=== PATIENT | male | born 1930 | race Caucasian/White ===

== ENCOUNTER 2016-12-14 07:29 | Inpatient (IN) | payer MEDICARE ==
[~2016-12-14] VITALS: Ht 165.1 cm; Wt 73.0 kg
[~2016-12-14 07:29] MED LIST: /AMIO20TA PO; /FENO14TA PO; ACET50TA PO; ALBU0.084 NEB; ALBU1.25 NEB; ALDA25TA2 PO; ASPI81TA85 PO; CAPT31TA OR; CAPT31TA PO; CARV3.12 PO; CORE25TA PO; DIGO25TA PO; FURO40TA2 PO; GABA300C2 PO; JANU25TA PO; MULTTAB4 PO; NITR4TASL SL; POTA10TA PO; PRO AIR HFA INH; SIMV40TA2 PO; SPIRIVA INH; VITA500047 PO; WARF1TAB35 PO; ZETI10TA21 PO
[2016-12-14 08:03] LABS: BASO # 0.1 K/mm3 (0.0-0.2); BASO % 0.3 % (0.0-1.0); EOS # 0.1 K/mm3 (0.0-0.50); EOS % 0.4 % (0.0-3.0); LARGE UNSTAINED CELL # 0.8 K/mm3 (0.0-0.4); LARGE UNSTAINED CELL % 3.5 % (0.0-4.0); LYMPH # 3.4 K/mm3 (1.5-4.5); LYMPH % 11.9 % (24.0-44.0); MEAN CORPUSCULAR HEMOGLOBIN 29.3 pg (27.0-33.0); MEAN CORPUSCULAR HGB CONC 31.1 g/dl (32.0-36.5); MEAN CORPUSCULAR VOLUME 94.2 fl (80.0-96.0); MONO # 1.8 K/mm3 (0.0-0.8); MONO % 8.2 % (0.0-5.0); NEUTROPHILS # 16.7 K/mm3 (1.8-7.7); NEUTROPHILS % 75.7 % (36.0-66.0); PLATELET COUNT, AUTOMATED 293 k/mm3 (150-450); RED CELL DISTRIBUTION WIDTH 15.2 % (11.5-14.5); WHITE BLOOD COUNT 22.1 K/mm3 (4.0-10.0)
--- NOTE | 2016-12-14 08:14 | REP ---
Clinical: Shortness of breath . Comparison: 06/19/2013 . Findings: The mediastinum and cardiac silhouette are stable. Sternotomy and pacemaker again noted. The lung espino are clear without acute consolidation, effusion, or pneumothorax. Skeletal structures are intact. Impression: No acute cardiopulmonary process. Signed by Paulo Desouza MD 12/14/2016 08:05 A
[2016-12-14] MEDS ORDERED: PANTOPRAZOLE 40MG INJ (PROTONIX) (C9113) As Ordered ONE ×5 (08:24→23:27)
[2016-12-14 08:53] LABS: ALBUMIN 3.2 GM/DL (3.2-5.2); ALBUMIN/GLOBULIN RATIO 1.33 (1.00-1.93); BILIRUBIN,DIRECT 0.1 MG/DL (0.0-0.2); BILIRUBIN,TOTAL 0.5 MG/DL (0.2-1.0); CALCIUM LEVEL 8.1 MG/DL (8.8-10.2); CREATININE FOR GFR 1.74 MG/DL (0.70-1.30); GLOMERULAR FILTRATION RATE 39.8 (>35); TOTAL PROTEIN 5.6 GM/DL (6.4-8.2)
[2016-12-14 09:12] LABS: DIGOXIN LEVEL 0.9 NG/ML (0.5-2.0)
[2016-12-14] MEDS ORDERED: WARF4TAB52 PO (09:24)
[2016-12-14] MEDS ORDERED: CAPT62TA PO (09:24)
[2016-12-14] MEDS ORDERED: [UNRECOGNIZED DRUG - CODE] PO (09:24)
[2016-12-14] MEDS ORDERED: CARV3.12 PO (09:24)
[2016-12-14] MEDS ORDERED: ASPI1TAB PO (09:24)
[2016-12-14] MEDS ORDERED: SIMV20TA2 PO (09:24)
[2016-12-14] MEDS ORDERED: FURO20TA2 PO (09:24)
[2016-12-14] MEDS ORDERED: SPIR25TA2 PO (09:24)
[2016-12-14] MEDS ORDERED: DRIS50002 PO (09:24)
[2016-12-14] MEDS ORDERED: NITR4TASL SL (09:24)
[2016-12-14] MEDS ORDERED: DIGO0.12 PO (09:24)
[2016-12-14] MEDS ORDERED: TRAD5TAB PO (09:24)
[2016-12-14] MEDS ORDERED: DEXTROSE 50% 50 ML SYRINGE IV PRN (10:00)
[2016-12-14] MEDS ORDERED: ONDANSETRON 4MG/2ML VIAL (J2405) IV PRN (10:00)
[2016-12-14] MEDS ORDERED: GLUCOSE 4 GM CHEW TABLET PO PRN (10:00)
[2016-12-14] MEDS ORDERED: ACETAMINOPHEN TAB 650MG DOSE (2X325MG) PO PRN (10:00)
[2016-12-14] MEDS ORDERED: ONDANSETRON 4 MG TAB (S0181) PO PRN (10:00)
[2016-12-14] MEDS ORDERED: GLUCAGON FOR INJ 1 MG VIAL (J1610) SC PRN (10:00)
[2016-12-14 10:25] LABS: INR 6.25
[2016-12-14] MEDS ORDERED: PHYTONADIONE 10MG/ML INJECTION (J3430) As Ordered ONE (10:46)
[2016-12-14 10:55] VITALS: BP 139/63
[2016-12-14] MEDS: HumaLOG INSULIN (NovoLOG) PER UNIT SC SCH ×2 (12:00→18:00)
[2016-12-14] MEDS: PANTOPRAZOLE SODIUM 40 MG in D5W MINI-BAG PLUS 50 ML IV SCH ×3 (13:15→23:31)
--- NOTE | 2016-12-14 13:53 | HPEPDOC ---
Medical History and Physical Date of Admission Dec 14, 2016 at 09:55 History and Physical HISTORY AND PHYSICAL Date of admission: 12/14/2016 PCP: Dr. Srivastava in [place] Chief complaint: Very weak, couldn't breathe when he tried to get up, black stool for a week HPI: 86-year-old male with history of WI, CAD status post CABG, ischemic cardiomyopathy with chronic systolic CHF status post biventricular defibrillator placement, history of A. fib, mechanical aortic valve replacement , COPD, hypertension, hyperlipidemia, diabetes mellitus type 2, history of prior ventricular fibrillation who presented to the hospital because he was extremely weak and said that he couldn't even stand up to get to the bathroom. He states that approximately one week ago, he went to the bathroom, when he heard something that sounded "like a shotgun" when he expelled stool. He noted at that time, that the stool was very black. He has proceeded to have black bowel movements since then. He has been getting progressively more weak, initially limited to his legs, but now he states his whole body is weak. He also reports shortness of breath and dizziness whenever he tries to get up. He was prompted to come to the ER today, when he noticed that he couldn't even stand up to get to the bathroom. He does report that he fell twice, but he denies any head injury or loss of consciousness. He states that he just kind of slumped to the ground. He denies any prior episodes that are similar to this. Upon questioning as to the history of prior GI bleed, he denies this, although there is some documentation that suggests he does have a history of a prior GI bleed. He reports that his daughter manages all of his medications, but unfortunately his daughter was not at the bedside during my interview to further discuss his Coumadin usage. The patient states his INRs are followed by Dr. Srivastava, but he is not sure when it was last checked. Past medical history: history of WI, CAD status post CABG, ischemic cardiomyopathy with chronic systolic CHF status post biventricular defibrillator placement, history of A. fib, mechanical aortic valve replacement , COPD, hypertension, hyperlipidemia, diabetes mellitus type 2, history of prior ventricular fibrillation Past surgical history: CABG, mechanical aortic valve replacement, biventricular defibrillator placement Family history: The patient states his brother was killed in an MVA. He is otherwise unsure about his family history. Social history: Patient states that he and his daughter currently live together. He quit smoking approximately 40 years ago, and at the same time, he quit drinking any alcohol. Allergies: No known drug allergies Review of systems: General: Positive for hot flashes. Negative for chills. Eyes: Negative for vision changes ENT: Negative for sore throat and nose bleed Cardiovascular: Negative for chest pain and palpitations Respiratory: Positive for shortness of breath. Negative for cough GI: Negative for nausea and vomiting. Positive for black stool. Musculoskeletal: Positive for chronic neck pain. Negative for back pain Skin: Negative for rash Neuro: Negative for headache, numbness, tingling. Positive for dizziness. Psych: Positive for depression. The patient denies any current suicidal ideations, but reports that in the last couple months he has experienced times when he wanted to kill himself, although he had no distinct plan. Endocrine: Negative for polyuria : Negative for dysuria Heme: Positive for black stool 1 week Home meds: See below Physical exam: Vital signs: Blood pressure 139/58, HR 71, temperature 96.6, O2 sat 97% on room air, RR 18 Gen.: awake, alert, no acute distress Eyes: Extraocular movements intact, normal sclera ENT: Moist mucous membranes Cardiovascular: RRR, no murmurs rubs or gallops Lungs: clear to auscultation bilaterally, no rales, rhonchi, or wheeze Abdomen: Soft, NT/ND, normal BS Musculoskeletal: normal range of motion Extremities: No peripheral edema Neuro: alert and oriented 3, normal speech, no focal deficits Psych: Normal mood with congruent affect Labs and radiology: See below Hemoglobin 6.0 WBC 22 BUN 45, creatinine 1.74 INR 6.25 Troponin negative, EKG was paced Assessment and plan: 86-year-old male with history of WI, CAD status post CABG, ischemic cardiomyopathy with chronic systolic CHF status post biventricular defibrillator placement, history of A. fib, mechanical aortic valve replacement , COPD, hypertension, hyperlipidemia, diabetes mellitus type 2, history of prior ventricular fibrillation who presented to the hospital because he was extremely weak and had been having black bowel movements for approximately one week. He is admitted with acute blood loss anemia, as well as upper GI bleed. 1. Upper GI bleed: The patient will remain nothing by mouth and on a PPI drip. He will receive IV fluids. I spoke with Dr. Perry of gastroenterology, who has kindly agreed to see him and follow along in consultation. 2. Acute blood loss anemia, supra therapeutic INR: Hemoglobin upon admission is 6.0. Given that he is on Coumadin and his INR 6.25, we will be holding his Coumadin. Given that he is demonstrating active bleeding, he has received 5 mg of IV vitamin K and we will recheck an INR this evening. He also will receive 2 units of PRBCs and 1 pheresis of fresh frozen plasma. We will then recheck his Hgb and continue to trend H/Hs. At this time, nursing reports he has not had any bloody bowel movements since arriving here. 3. Leukocytosis: WBC upon admission is 22. I suspect that this is reactive secondary to his GI bleed, as he has been afebrile and a chest x-ray is unremarkable. We will check a UA, and continue to trend his CBC. We will also check blood cultures. 4. Chronic kidney disease: Upon review of the EMR, it appears that the patient' s baseline creatinine is in the upper ones. It appears that he is currently at his baseline. His BUN is elevated above his baseline, however, I suspect that this is secondary to his GI bleed. We'll continue to closely monitor his kidney function. 5. History of WI, CAD status post CABG: The patient currently does not have any chest pain. An initial troponin is negative and his EKG shows ventricular pacing. We will monitor him on telemetry and continue to trend his troponins. Given that he is currently bleeding, we will hold his home aspirin. We also will hold his home beta dmitry and monitor his blood pressure. We will hold his home statin with plans to resume at discharge. 6. Ischemic cardiomyopathy with chronic systolic CHF status post biventricular defibrillator placement: Given that the patient is currently having a GI bleed, we will hold his home Lasix and spironolactone and monitor his fluid status closely. We also will hold his home KARL inhibitor, and ensure that his blood pressure remains stable in light of his current GI bleed. 7. History of mechanical aortic valve replacement: The patient takes Coumadin at home. We will be holding this in light of his GI bleed. I have consulted his primary equine dentist, Dr. García, for further recommendations of anticoagulation in the setting of a GI bleed and mechanical aortic valve. 8. Diabetes mellitus type 2: We will hold the patient's home Tradjenta. His A1c is 5.8. We will use sliding scale insulin while in house. 9. History of A. fib/ventricular fibrillation: Continue home digoxin. Digoxin level is within normal limits. 10. Depression: The patient endorses being depressed. He denies any current suicidal ideations, but he does tell me that over the last several months, he has had some thoughts of killing himself. When asked if he has a plan, he states that they no longer have a gun, so he doesn't really know how he would do it. At this time, since he denies any current suicidal ideations, I do not believe that he needs to be on suicidal precautions, but I do believe that his mental status should be reevaluated prior to discharge, and if this changes, he may warrant a psych evaluation. DVT prophylaxis: SCDs Dispo: admit as an inpatient to the service of Dr. Zurita. The patient will currently be in the PCU since his vitals are stable and he is not having any gross bleeding. However, we will have a low threshold of moving him to the ICU if he should show any signs of instability. CODE STATUS: Full code. The patient is very clear in telling me that he would not want to be kept alive on machines for an extended period of time, but he does state, that if in the moment, he would be unable to breathe on his own, he would want to be intubated. He also states, that if in the moment, his heart were to stop beating, he would desire cardiac resuscitation. Vital Signs see above Laboratory Data Labs 24H Laboratory Tests 2 12/14/16 07:46: Activated Partial Thromboplast Time 49.6H, Aspartate Amino Transf (AST/SGOT) 15 , Alanine Aminotransferase (ALT/SGPT) 22, Alkaline Phosphatase 48, Total Bilirubin 0.5, Direct Bilirubin 0.1, Albumin 3.2, Albumin/Globulin Ratio 1.33, Anion Gap 13, White Blood Count 22.1H, Red Blood Count 2.06L, Hemoglobin 6.0*L, Hematocrit 19.4L, Mean Corpuscular Volume 94.2, Mean Corpuscular Hemoglobin 29.3 , Mean Corpuscular Hemoglobin Concent 31.1L, Red Cell Distribution Width 15.2H, Platelet Count 293, Neutrophils (%) (Auto) 75.7H, Lymphocytes (%) (Auto) 11.9L, Monocytes (%) (Auto) 8.2H, Eosinophils (%) (Auto) 0.4, Basophils (%) (Auto) 0.3 , Neutrophils # (Auto) 16.7H, Lymphocytes # (Auto) 3.4, Monocytes # (Auto) 1.8H , Eosinophils # (Auto) 0.1, Basophils # (Auto) 0.1, Calcium Level 8.1L, Creatine Kinase MB 1.8, Creatine Kinase MB Relative Index 5.45H, Digoxin Level 0.9, Estimated Mean Plasma Glucose 120H, Glomerular Filtration Rate 39.8, Hemoglobin A1c 5.8, Large Unclassified Cells # 0.8H, Large Unclassified Cells % 3.5, Prothromb Time International Ratio 6.25*H, Prothrombin Time 55.1H, Total Creatine Kinase 33L, Total Protein 5.6L, Troponin I 0.03 12/14/16 07:47: B-Type Natriuretic Peptide 77.3 CBC/BMP Laboratory Tests 12/14/16 07:46 Red Blood Count 2.06 L, Mean Corpuscular Volume 94.2, Mean Corpuscular Hemoglobin 29.3, Mean Corpuscular Hemoglobin Concent 31.1 L, Red Cell Distribution Width 15.2 H, Neutrophils (%) (Auto) 75.7 H, Lymphocytes (%) (Auto ) 11.9 L, Monocytes (%) (Auto) 8.2 H, Eosinophils (%) (Auto) 0.4, Basophils (%) (Auto) 0.3, Neutrophils # (Auto) 16.7 H, Lymphocytes # (Auto) 3.4, Monocytes # ( Auto) 1.8 H, Eosinophils # (Auto) 0.1, Basophils # (Auto) 0.1 Home Medications Scheduled (Gas-X Extra Strength) 125 Mg Cap 125 MG PO DAILY Aspirin (Aspirin 81) 81 Mg Tab 81 MG PO DAILY Captopril (Captopril) 12.5 Mg Tab 6.25 MG PO BID Carvedilol (Carvedilol) 3.125 Mg Tab 3.125 MG PO BID Digoxin (Digoxin) 0.125 Mg Tab 0.125 MG PO DAILY Furosemide (Furosemide) 20 Mg Tab 20 MG PO BID Linagliptin Base (Tradjenta) 5 Mg Tab 5 MG PO QHS Simvastatin (Simvastatin) 20 Mg Tab 20 MG PO QHS Spironolactone (Spironolactone) 25 Mg Tab 12.5 MG PO DAILY Vitamin D (Drisdol) 50,000 Unit Cap 50,000 UNIT PO Q2WK EVERY OTHER SUNDAY Warfarin Sod (Warfarin Sodium) 1 Mg Tab 1.5 MG PO ASDIRECTED ON 12/11 PT TOOK 2MG , 12/12 AND 12/13 PT TOOK 1.5MG- WAS SUPPOSED TO GET BLOOD WORK TODAY - DR HAS BEEN CHANGING DOSE FREQUENTLY Scheduled PRN Nitroglycerin (Nitrostat) 0.4 Mg Subl 0.4 MG SL Q5MP PRN PRN CHEST PAIN Allergies Coded Allergies: No Known Allergies (Unverified , 06/16/13) RAVINDRA LAYNE Dec 14, 2016 13:53
[2016-12-14] MEDS ORDERED: AMPICILLIN SOD 2 GM in D5W MINI-BAG PLUS 100 ML IV SCH (15:00)
[2016-12-14] MEDS: NS 1,000 ML IV SCH (17:59)
[2016-12-14 18:15] VITALS: BP 120/58
[2016-12-14] MEDS: DIGOXIN 0.125 MG TAB PO SCH (18:29)
[2016-12-14 18:46] LABS: INR 1.51
[2016-12-14 19:34] VITALS: BP 109/59
--- NOTE | 2016-12-14 20:44 | CR ---
DATE OF CONSULTATION: 12/14/2016 Status of patient: Inpatient. Requesting physician is the hospitalist service. Reason for consultation is anemia, melena. HISTORY OF PRESENT ILLNESS: Mr. Wolff is a very pleasant elderly gentleman with an extensive cardiac history including ischemic cardiomyopathy, history of ventricular tachycardia with defibrillator placement. He also has a history of atrial fibrillation. He has a history of aortic valve replacement for which he is taking Coumadin. The patient was in his usual state of health until approximately 1 week ago when he suddenly developed black, tarry, loose, explosive stools up to twice a day. He felt weak and tired, feeling his legs giving out. He did have an episode of fall; however, did not lose consciousness. The patient presents to [facility] Emergency Room (ER) with a hemoglobin of 6.0 and PT/INR of 6. The patient is being transfused and INR is being corrected for further evaluation. PAST MEDICAL HISTORY: History of coronary artery disease, status post coronary artery bypass graft (CABG), history of systolic heart failure, history of ventricular tachycardia with defibrillator placement, history of atrial fibrillation. He has a history of mechanical aortic valve placement, chronic obstructive pulmonary disease (COPD), hypertension. SURGICAL HISTORY: Coronary artery bypass grafting, mechanical aortic valve placement, implantable cardioverter defibrillator (ICD) placement, reportedly has a history of colonoscopy and upper endoscopy in 2012 or 2013 for a similar episode. FAMILY HISTORY: Noncontributory. SOCIAL HISTORY: Negative for tobacco. Negative for alcohol. ALLERGIES: No known drug allergies. MEDICATIONS AT HOME: Include digoxin, furosemide, spironolactone, vitamin D, Coumadin, captopril. PHYSICAL EXAMINATION: Blood pressure 128/76, heart rate is 70, temperature 96.8, oxygen saturation 97% on room air. General: He is awake, alert and oriented, in no acute distress, very pleasant and comfortable in bed. Head, eyes, ears, nose and throat: Without abnormality. No oral thrush. Neck is negative for lymphadenopathy or thyromegaly. Chest is coarse, distant breath sounds but no rhonchi or wheezing. Heart is regular rate and rhythm. Aortic click is appreciated. Abdomen is soft, flat, nontender. Good bowel sounds. Extremities: Negative for edema. LABORATORY: Hemoglobin of 6, WBCs 22, BUN 45, creatinine 1.74. PT/INR 6.25/1.5. 1. Posthemorrhagic anemia with near syncopal episode. 2. Melena. 3. Supratherapeutic INR, has now been corrected. 4. Mechanical aortic valve in place. 5. Systolic heart failure. 6. History of cardiac arrhythmia, status post ICD RECOMMENDATIONS: 1. INR has been corrected sufficiently and anemia is being corrected as well. Therefore, we will tentatively plan on upper endoscopy for further evaluation of his melena/anemia tomorrow. 2. Preprocedure ampicillin and gentamicin will be ordered. 3. Further recommendations depending on above.
[2016-12-14] MEDS ORDERED: PANTOPRAZOLE 40MG INJ (PROTONIX) (C9113) IV SCH (21:00)
[2016-12-14 23:32] VITALS: BP 105/55
[2016-12-15] VITALS (8 sets, daily range): BP systolic 105–163; BP diastolic 54–72
[2016-12-15] MEDS ORDERED: HumaLOG INSULIN (NovoLOG) PER UNIT As Ordered ONE ×3 (00:03→12:33)
[2016-12-15] MEDS: HumaLOG INSULIN (NovoLOG) PER UNIT SC SCH ×4 (00:06→19:06)
[2016-12-15] MEDS ORDERED: PANTOPRAZOLE 40MG INJ (PROTONIX) (C9113) As Ordered ONE ×3 (05:25→13:31)
[2016-12-15] MEDS: PANTOPRAZOLE SODIUM 40 MG in D5W MINI-BAG PLUS 50 ML IV SCH ×4 (05:27→18:59)
[2016-12-15 06:29] LABS: INR 1.37
[2016-12-15 06:30] LABS: BASO % 0.4 % (0.0-1.0); EOS # 0.1 K/mm3 (0.0-0.50); EOS % 0.9 % (0.0-3.0); LARGE UNSTAINED CELL # 0.6 K/mm3 (0.0-0.4); LARGE UNSTAINED CELL % 4.9 % (0.0-4.0); LYMPH # 1.5 K/mm3 (1.5-4.5); LYMPH % 13.1 % (24.0-44.0); MEAN CORPUSCULAR HEMOGLOBIN 28.1 pg (27.0-33.0); MEAN CORPUSCULAR HGB CONC 32.3 g/dl (32.0-36.5); MONO # 0.4 K/mm3 (0.0-0.8); MONO % 3.8 % (0.0-5.0); NEUTROPHILS # 8.6 K/mm3 (1.8-7.7); NEUTROPHILS % 76.9 % (36.0-66.0); RED CELL DISTRIBUTION WIDTH 16.9 % (11.5-14.5); WHITE BLOOD COUNT 11.1 K/mm3 (4.0-10.0)
[2016-12-15 06:35] LABS: MEAN CORPUSCULAR VOLUME 87.1 fl (80.0-96.0); PLATELET COUNT, AUTOMATED 177 k/mm3 (150-450)
[2016-12-15 06:42] LABS: CALCIUM LEVEL 8.2 MG/DL (8.8-10.2); CREATININE FOR GFR 1.47 MG/DL (0.70-1.30); GLOMERULAR FILTRATION RATE 48.4 (>35); MAGNESIUM LEVEL 2.5 MG/DL (1.8-2.4); POTASSIUM SERUM 3.8 MEQ/L (3.5-5.1)
[2016-12-15] MEDS: NS 1,000 ML IV SCH (06:50)
[2016-12-15] MEDS ORDERED: D5W/0.45% SODIUM CHLORIDE 1,000 ML IV SCH (07:45)
[2016-12-15] MEDS: DIGOXIN 0.125 MG TAB PO SCH (08:28)
[2016-12-15] MEDS ORDERED: PHYTONADIONE 10MG/ML INJECTION (J3430) IV ONE (10:45)
[2016-12-15] MEDS ORDERED: AMPICILLIN SOD 2 GM in D5W MINI-BAG PLUS 100 ML IV ONE (15:00)
[2016-12-15] MEDS ORDERED: GENTAMICIN 80 MG in APPROPRIATE DILUENT 1 EA IV SCH (15:00)
[2016-12-15] MEDS ORDERED: GENTAMICIN 80 MG in APPROPRIATE DILUENT 1 EA IV ONE (15:00)
--- NOTE | 2016-12-15 15:30 | EDDOCDS ---
Nurse[facility] Notes [facility] Name: Bernard Wolff Jr Age: 86 yrs Sex: Male : 1930 Arrival Date: 12/14/2016 Time: 07:29 Bed Admit Hold Private MD: Diagnosis: Gastrointestinal hemorrhage, unspecified-Upper;Anemia, unspecified-symptomatic;Dehydration;Acute kidney failure Presentation: 12/14 07:36 Presenting complaint: EMS states: sudden onset difficulty breathing upon waking this jjr morning approx one hour ago, reports almost falling approx 3 times this morning with vertigo, black tarry stools 2 days ago FSBS 200's. Adult Sepsis Screening: The patient does not have new or worsening altered mentation. Patient's respiratory rate is less than 22. Systolic blood pressure is greater than 100. Patient has a qSOFA score of 0- Negative Sepsis Screen. Suicide/Homicide risk assessment- the patient denies having any suicidal and/or homicidal ideations and does not present with any other emotional, behavioral or mental health complaints. Status: Patient is not a lineman service or work dispatcher or dependent. Transition of care: patient was not received from another setting of care. 07:36 Acuity: DEJA Level 3 jjr 07:36 Method Of Arrival: Ambulance jjr Triage Assessment: 08:11 General: Appears in no apparent distress, well nourished, well groomed, Behavior is jjr appropriate for age. General: poor activity tolerance, tachypnea noted with rolling to side and sitting up. Pain: Denies pain. Neurological: Level of Consciousness is awake, alert, Moves all extremities. Speech is normal, Facial symmetry appears normal, Reports dizziness, weakness. Cardiovascular: Rhythm is ventricular pacer. Respiratory: Onset: The symptoms/episode began/occurred this morning, Airway is patent Respiratory effort is even, unlabored, Respiratory pattern is regular, Breath sounds are clear bilaterally. GI: Reports black tarry stool. Derm: Skin is dry, Skin is pale, Skin temperature is warm. Historical: - Allergies: no known allergies; - Home Meds: 1. captopril 12.5 mg Oral tab 0.5 tab 2 times per day 2. carvedilol 3.125 mg oral tab 1 tab 2 times per day 3. simvastatin 20 mg Oral tab 1 tab once daily 4. aspirin 81 mg Oral tab 1 tab once daily 5. Tradjenta 5 mg oral tab 1 tab once daily 6. furosemide 40 mg Oral tab 1 tab once daily 7. Nitrostat 0.4 mg SL subl 1 tab every 5 minutes 8. Coumadin 1 mg daily and 0.5 mg Wed and Fri Oral tab (Last dose: Unknown) 9. spironolactone 12.5 mg Oral tab once daily 10. digoxin 125 mcg Oral tab 1 tab once daily 11. Vitamin D2 50,000 unit oral cap 1 cap once wkly - PMHx: ischemic cardiomyopathy; GI bleed; Hypertension; Hypercholesterolemia; Diabetes - NIDDM: controlled; - PSHx: Cataract Surgery; Aortic Valve Replacement, Mechanical; CABG; pacer/defib; - The history from nurses notes was reviewed: and I agree with what is documented. - Social history: No barriers to communication noted, The patient speaks fluent Kiswahili. - : The pt / caregiver states he / she is on anticoagulants: coumadin. Home medication list is obtained from the patient, pill bottles. - Hospitalizations: : No recent hospitalization is reported. - Exposure Risk Screening:: None identified. - Immunization history:: All immunizations up-to-date. - Family history: Not pertinent. - Social history:: the patient is a non-smoker, the patient does not drink alcohol. Screenin:36 Fall Risk. jjr 08:13 Screening information is obtained from the patient. Fall risk: At risk due to age, The jjr following interventions are performed due to a positive Fall Risk Screen: added to special handling. Assistance ADL's: Requires assistance with meal preparation, this assistance is provided by family members, housework, assistance is provided by family members. Abuse/DV Screen: The patient / caregiver reports he/she is: not in a situation that causes fear, pain or injury. Nutritional screening: No deficits noted. home support is adequate. 08:14 Advance Directives: Currently, there is a health care proxy, Kat New. There is jjr no active DNR order. Assessment: 08:13 General: Appears in no apparent distress. Cardiovascular: Rhythm is ventricular pacer. jjr 09:15 General: Appears in no apparent distress, resting with eyes closed daughter at bedside. jjr 10:09 General: Appears in no apparent distress, Behavior is appropriate for age, first unit jjr PRBC infusing per order. Pain: Denies pain. Neurological: No deficits noted. Cardiovascular: Rhythm is ventricular pacer. Respiratory: Airway is patent Respiratory effort is even, unlabored, Respiratory pattern is regular. Derm: Skin is dry, Skin is pale, Skin temperature is warm. 11:11 General: Appears in no apparent distress, speaking with admission nurse. jjr Cardiovascular: Rhythm is ventricular pacer. Respiratory: Airway is patent Respiratory effort is even, unlabored, Respiratory pattern is regular. 12:12 General: Appears in no apparent distress, pt sat at bedside to use urinal, became jjr immediately tachypneic at approx 28 breaths/min and reported dizziness, returned to supine with relief of symptoms after a few minutes. Neurological: No deficits noted. Cardiovascular: Rhythm is ventricular pacer. Respiratory: Airway is patent Respiratory effort is even, unlabored, Respiratory pattern is regular. Derm: Skin is dry, Skin is pale, Skin temperature is warm. 13:10 General: Appears in no apparent distress, 2nd unit PRBC's continues to infuse, pt lying jjr quietly on stretcher, resting intermittently. Cardiovascular: Rhythm is ventricular pacer. 14:10 General: Appears in no apparent distress, Behavior is appropriate for age. jjr Neurological: No deficits noted. Cardiovascular: Rhythm is ventricular pacer. Respiratory: Airway is patent Respiratory effort is even, unlabored, Respiratory pattern is regular. Derm: Skin is dry, Skin is pale, Skin temperature is warm. 15:01 General: Appears in no apparent distress, Behavior is appropriate for age. Pain: Denies jjr pain. Neurological: No deficits noted. Cardiovascular: Rhythm is ventricular pacer. Respiratory: Airway is patent Respiratory effort is even, unlabored, Respiratory pattern is regular. 16:00 General: Appears in no apparent distress, watching television denies needs at this jjr time. Pain: Denies pain. Cardiovascular: Rhythm is ventricular pacer. Respiratory: Airway is patent Respiratory effort is even, unlabored, Respiratory pattern is regular. Vital Signs: 07:40 BP 123 / 60; Pulse 77; Resp 18; Temp 96.6(O); Pulse Ox 100% on R/A; Weight 68.04 kg dem1 (R); Pain 0/10; 07:53 Pulse 74 MON; Pulse Ox 98% ; jjr 07:53 BP 132 / 57 Supine (auto/); jjr 07:57 Pulse 70 MON; Pulse Ox 99% ; jjr 07:57 BP 111 / 52 Sitting (auto/); jjr 08:08 BP 110 / 56 (auto/); jjr 08:08 Pulse 76 MON; Pulse Ox 96% ; jjr 08:23 BP 129 / 63 (auto/); jjr 08:23 Pulse 70 MON; Pulse Ox 100% ; jjr 08:38 BP 101 / 50 (auto/); jjr 08:38 Pulse 74 MON; Pulse Ox 98% ; jjr 08:53 BP 146 / 64 (auto/); jjr 08:53 Pulse 70 MON; Pulse Ox 99% ; jjr 09:08 BP 122 / 60 (auto/); jjr 09:08 Pulse 68 MON; Pulse Ox 99% ; jjr 09:23 BP 122 / 59 (auto/); jjr 09:23 Pulse 68 MON; Resp 20; Pulse Ox 98% on R/A; jjr 09:38 BP 119 / 55 (auto/); jjr 09:38 Pulse 70 MON; Pulse Ox 98% ; jjr 09:41 BP 117 / 57 (auto/); jjr 09:41 Pulse 72 MON; Pulse Ox 99% ; jjr 09:53 BP 139 / 58 (auto/); jjr 09:53 Pulse 68 MON; Resp 18; Pulse Ox 98% on R/A; jjr 10:23 BP 142 / 65 (auto/); jjr 10:23 Pulse 74 MON; Pulse Ox 98% ; jjr 10:53 BP 139 / 63 (auto/); jjr 10:53 Pulse 68 MON; Resp 18; Pulse Ox 99% on R/A; jjr 11:23 BP 130 / 63 (auto/); jjr 11:23 Pulse 74 MON; Pulse Ox 98% ; jjr 11:53 BP 134 / 63 (auto/); jjr 11:53 Pulse 80 MON; Resp 18; Pulse Ox 99% on R/A; jjr 12:23 BP 136 / 64 (auto/); jjr 12:23 Pulse 68 MON; Pulse Ox 99% ; jjr 12:53 BP 138 / 63 (auto/); jjr 12:53 Pulse 68 MON; jjr 13:23 BP 129 / 60 (auto/); jjr 13:23 Pulse 70 MON; Pulse Ox 98% ; jjr 13:53 BP 132 / 63 (auto/); jjr 13:53 Pulse 72 MON; Resp 18; Pulse Ox 98% on R/A; jjr 14:53 BP 145 / 68 (auto/); jjr 14:53 Pulse 68 MON; Pulse Ox 98% ; jjr 15:15 BP 143 / 64 (auto/); jjr 15:15 Pulse 72 MON; jjr 15:53 BP 123 / 59 (auto/); jjr 15:53 Pulse 74 MON; Pulse Ox 98% ; jjr 16:35 BP 142 / 63 (auto/); jjr 16:35 Pulse 70 MON; Pulse Ox 98% ; jjr 16:53 Pulse 68 MON; Pulse Ox 98% ; jjr 16:53 BP 125 / 60 (auto/); Pulse 68; Resp 18; Temp 99.4(TE); Pulse Ox 98% on R/A; jjr Vitals: 07:40 Log In Time N/A - ambulance arrival. [facility] ED Course: 07:30 Patient visited by Sheeba Werner, Sustainable Design Coordinator. deg 07:30 Stephanie Gonzalez, RN is Primary Nurse. deg 07:30 Patient moved to Waiting deg 07:30 Patient moved to 14 deg 07:37 Lui Howard MD is Attending Physician. pc 07:37 Triage Initiated jjr 07:40 Patient visited by Marquita Leyva. [facility] 07:42 Pt greeted and oriented to ED. Patient advised of names of staff involved in care, bnb location of call regalado, wait times and NPO status. Patient has correct armband on for positive identification. Placed in gown. Bed in low position. Call light in reach. Side rails up X2. salvage supervisor on. Pulse ox on. NIBP on. 07:43 Patient visited by Irina Jaime PCA. bnb 07:46 Patient visited by Lui Howard MD. pc 07:56 EKG done. (by ED staff). Reviewed by Lui Howard MD. bnb 07:57 Patient visited by Irina Jaime PCA. bnb 08:11 Inserted saline lock: 20 gauge in right antecubital area. jjr 08:11 Maintain field IV. Dressing intact. Good blood return noted. Site clean & dry. Gauge & jjr site: 20 gauge left AC. 08:13 The patient / caregiver is instructed regarding the plan of care and ED course. jjr 08:15 Patient visited by Stephanie Gonzalez RN. jjr 08:17 DIGOXIN LEVEL Sent. pc 08:33 Chest, 1 View Returned. EDMS 09:01 [facility] Payment Agreement was scanned into [employer] and attached to record. jp5 09:05 Ya March is Hospitalizing Provider. pc 10:10 Patient visited by Stephanie Gonzalez RN. jjr 10:54 Patient name changed from Bernard\S\J\S\New Jr.\S\ to Bernard\S\J\S\New Jr. EDMS 11:11 Patient visited by Stephanie Gonzalez RN. jjr 12:13 Patient visited by Stephanie Gonzalez RN. jjr 13:10 Patient visited by Stephanie Gonzalez RN. jjr 13:55 Patient moved to Admit Hold dwg 14:10 Patient visited by Stephanie Gonzalez RN. jjr 14:49 PCR was scanned into [employer] and attached to record. gb 15:02 Patient visited by Stephanie Gonzalez RN. jjr 16:01 Patient visited by Stephanie Gonzalez RN. jjr 17:24 Patient moved to 21 jjr 17:43 Patient moved to Admit Hold deg 19:16 Primary Nurse role handed off by Stephanie Gonzalez RN jjr 12/15 14:14 ECG/EKG was scanned into [employer] and attached to record. gb 14:14 Consents was scanned into [employer] and attached to record. gb Administered Medications: 12/14 08:35 Drug: pantoprazole 80 mg [pantoprazole 40 mg intravenous solution] Route: IV; Rate: jjr bolus; Site: left antecubital; 08:48 Drug: pantoprazole 8 mg/hr [pantoprazole 40 mg intravenous solution] Route: IV; Rate: jjr 10 mL/hr; Infused Over: 72 hrs; Site: left antecubital; 10:50 Drug: Phytonadione 5 mg [phytonadione (vitamin K1) 10 mg/mL injection solution (0.5 jjr mL)] Route: IVP; Site: left antecubital; 11:47 Not Given (2 units PRBC's): NS 0.9% 250 ml IV at bolus once jjr Attachments: 14:14 Consents gb Intake: 12/14 11:23 IV: 300.00ml (PRBC); Total: 300.00ml. jjr 16:00 IV: 300.00ml (PRBC); Total: 600.00ml. jjr 16:00 IV: 300.00ml (FFP); Total: 900.00ml. jjr Output: 11:23 Urine: 125.00ml (Voided); Total: 125.00ml. jjr 16:00 Urine: 175.00ml (Voided); Total: 300.00ml. jjr Order Results: Lab Order: CBC with Diff; SPEC'M 12/14/16 07:46 Test: WHITE BLOOD COUNT; Value: 22.1; Range: 4.0-10.0; Abnormal: Above high normal; Units: K/mm3; Status: F Test: RED BLOOD COUNT; Value: 2.06; Range: 4.30-6.10; Abnormal: Below low normal; Units: M/mm3; Status: F Test: HEMOGLOBIN; Value: 6.0; Range: 14.0-18.0; Abnormal: Critical Low; Units: g/dl; Status: F Test: HEMATOCRIT; Value: 19.4; Range: 42.0-52.0; Abnormal: Below low normal; Units: %; Status: F Test: MEAN CORPUSCULAR VOLUME; Value: 94.2; Range: 80.0-96.0; Units: fl; Status: F Test: MEAN CORPUSCULAR HEMOGLOBIN; Value: 29.3; Range: 27.0-33.0; Units: pg; Status: F Test: MEAN CORPUSCULAR HGB CONC; Value: 31.1; Range: 32.0-36.5; Abnormal: Below low normal; Units: g/dl; Status: F Test: RED CELL DISTRIBUTION WIDTH; Value: 15.2; Range: 11.5-14.5; Abnormal: Above high normal; Units: %; Status: F Test: PLATELET COUNT, AUTOMATED; Value: 293; Range: 150-450; Units: k/mm3; Status: F Test: NEUTROPHILS %; Value: 75.7; Range: 36.0-66.0; Abnormal: Above high normal; Units: %; Status: F Test: LYMPH %; Value: 11.9; Range: 24.0-44.0; Abnormal: Below low normal; Units: %; Status: F Test: MONO %; Value: 8.2; Range: 0.0-5.0; Abnormal: Above high normal; Units: %; Status: F Test: EOS %; Value: 0.4; Range: 0.0-3.0; Units: %; Status: F Test: BASO %; Value: 0.3; Range: 0.0-1.0; Units: %; Status: F Test: LARGE UNSTAINED CELL %; Value: 3.5; Range: 0.0-4.0; Units: %; Status: F Test: NEUTROPHILS #; Value: 16.7; Range: 1.8-7.7; Abnormal: Above high normal; Units: K/mm3; Status: F Test: LYMPH #; Value: 3.4; Range: 1.5-4.5; Units: K/mm3; Status: F Test: MONO #; Value: 1.8; Range: 0.0-0.8; Abnormal: Above high normal; Units: K/mm3; Status: F Test: EOS #; Value: 0.1; Range: 0.0-0.50; Units: K/mm3; Status: F Test: BASO #; Value: 0.1; Range: 0.0-0.2; Units: K/mm3; Status: F Test: LARGE UNSTAINED CELL #; Value: 0.8; Range: 0.0-0.4; Abnormal: Above high normal; Units: K/mm3; Status: F Lab Order: MED Profile; [facility] 12/14/16 07:46 Test: GLUCOSE, FASTING; Value: 214; Range: 83-110; Abnormal: Above high normal; Units: MG/DL; Status: F Test: BLOOD UREA NITROGEN; Value: 45; Range: 7-18; Abnormal: Above high normal; Units: MG/DL; Status: F Test: CREATININE FOR GFR; Value: 1.74; Range: 0.70-1.30; Abnormal: Above high normal; Units: MG/DL; Status: F Test: GLOMERULAR FILTRATION RATE; Value: 39.8; Range: >35; Status: F Test: SODIUM LEVEL; Value: 144; Range: 136-145; Units: MEQ/L; Status: F Test: POTASSIUM SERUM; Value: 4.0; Range: 3.5-5.1; Units: MEQ/L; Status: F Test: CHLORIDE LEVEL; Value: 110; Range: 98-107; Abnormal: Above high normal; Units: MEQ/L; Status: F Test: CARBON DIOXIDE LEVEL; Value: 21; Range: 21-32; Units: MEQ/L; Status: F Test: ANION GAP; Value: 13; Range: 8-16; Units: MEQ/L; Status: F Test: CALCIUM LEVEL; Value: 8.1; Range: 8.8-10.2; Abnormal: Below low normal; Units: MG/DL; Status: F Test Note: ; Units are mL/min/1.73 m2 Chronic Kidney Disease Staging per NKF: Stage I & II GFR >=60 Normal to Mildly Decreased Stage III GFR 30-59 Moderately Decreased Stage IV GFR 15-29 Severely Decreased Stage V GFR <15 Very Little GFR Left ESRD GFR <15 on [employer] H[employer] VENDOR Lab Order: BNP; SPEC'M 12/14/16 07:47 Test: BRAIN NATRIURETIC PEPTIDE; Value: 77.3; Range: <100; Units: PG/ML; Status: F Lab Order: CIP; SPEC'M 12/14/16 07:46 Test: CPK CREATINE PHOSPHOKINASE; Value: 33; Range: 39-308; Abnormal: Below low normal; Units: U/L; Status: F Test: CK-MB VALUE MASS; Value: 1.8; Range: 0.0-3.6; Units: NG/ML; Status: F Test: MB/CK RELATIVE INDEX; Value: 5.45; Range: < OR =4; Abnormal: Above high normal; Status: F Test Note: ; DIAGNOSIS CRITERIA MMB ng/ml Relative Index (RI) NON-AMI < or = 5 N/A GILBERT ZONE > 5 < or = 4 AMI > 5 > 4 Lab Order: Troponin; [facility] 12/14/16 07:46 Test: TROPONIN I; Value: 0.03; Range: < 0.10; Units: NG/ML; Status: F Test Note: ; Troponin I Reference Interval for [employer] [facility] LOCI: 99th Percentile= 0.00-0.045 ng/ml Risk Stratification: <= 0.10 ng/ml Decreased Risk for Adverse Clinical Events. 0.10-1.50 ng/ml Increased Risk for Adverse Clinical Events. Evaluation of additional criterion and/or repeat testing in 2-6 hours is suggested to rule out myocardial damage. >= 1.50 ng/ml Indicative of Myocardial Injury. Lab Order: Pt & Aptt; [facility] 07:46 Test: PROTHROMBIN TIME; Value: 55.1; Range: 12.3-14.5; Abnormal: Above high normal; Units: SECONDS; Status: F Test: INR; Value: 6.25; Abnormal: Above upper panic limits; Status: F Test: PARTIAL THROMBOPLASTIN TIME; Value: 49.6; Range: 26.6-37.1; Abnormal: Above high normal; Units: SECONDS; Status: F Test Note: ; THERAPUTIC HUMAN INR VALUES INDICATIONS NORMAL RANGES PROPHYLAXIS/TREATMENT OF: VENOUS THROMBOSIS 2.0-3.0 PULMONARY EMBOLISM 2.0-3.0 PREVENTION OF SYSTEMIC EMBOLISM FROM: TISSUE HEART VALVES 2.0-3.0 ACUTE MYOCARDIAL INFARCTION 2.0-3.0 VALVULAR HEART DISEASE 2.0-3.0 ATRIAL FIBRILLATION 2.0-3.0 MECHANICAL VALVES(HIGH RISK) 2.5-3.5 RECURRENT MYOCARDIAL INFARCTION 2.5-3.5 Lab Order: Type & Screen; [facility] 07:47 Test: BLOOD TYPE; Value: A POS; Status: F Test: AB SCREEN (INDIRECT TRA)VIS; Value: NEGATIVE; Status: F Lab Order: Liver Profile; [facility] 12/14/16 07:46 Test: AST/SGOT; Value: 15; Range: 15-37; Units: U/L; Status: F Test: ALT/SGPT; Value: 22; Range: 12-78; Units: U/L; Status: F Test: ALKALINE PHOSPHATASE; Value: 48; Range: 45-117; Units: U/L; Status: F Test: BILIRUBIN,TOTAL; Value: 0.5; Range: 0.2-1.0; Units: MG/DL; Status: F Test: BILIRUBIN,DIRECT; Value: 0.1; Range: 0.0-0.2; Units: MG/DL; Status: F Test: TOTAL PROTEIN; Value: 5.6; Range: 6.4-8.2; Abnormal: Below low normal; Units: GM/DL; Status: F Test: ALBUMIN; Value: 3.2; Range: 3.2-5.2; Units: GM/DL; Status: F Test: ALBUMIN/GLOBULIN RATIO; Value: 1.33; Range: 1.00-1.93; Status: F Lab Order: A1C; [facility] 12/14/16 07:46 Test: HEMOGLOBIN A1c; Value: 5.8; Range: 4.5-6.2; Units: %; Status: F Test: ESTIMATED AVERAGE GLUCOSE; Value: 120; Range: 60-110; Abnormal: Above high normal; Units: MG/DL; Status: F Lab Order: DIGOXIN LEVEL; [facility] 12/14/16 07:46 Test: DIGOXIN LEVEL; Value: 0.9; Range: 0.5-2.0; Units: NG/ML; Status: F Lab Order: HEMOGLOBIN & HEMATOCRIT; [facility] 12/14/16 18:24 Test: HEMOGLOBIN; Value: 8.4; Range: 14.0-18.0; Units: g/dl; Status: F Test: HEMATOCRIT; Value: 25.1; Range: 42.0-52.0; Abnormal: Below low normal; Units: %; Status: F Lab Order: CARDIAC MARKER PANEL; [facility] 12/14/16 18:24 Test: CPK CREATINE PHOSPHOKINASE; Value: 53; Range: 39-308; Units: U/L; Status: F Test: CK-MB VALUE MASS; Value: 1.8; Range: 0.0-3.6; Units: NG/ML; Status: F Test: MB/CK RELATIVE INDEX; Value: 3.39; Range: < OR =4; Status: F Test: TROPONIN I; Value: 0.04; Range: < 0.10; Abnormal: Delta; Units: NG/ML; Status: F Test Note: ; DIAGNOSIS CRITERIA MMB ng/ml Relative Index (RI) NON-AMI < or = 5 N/A GILBERT ZONE > 5 < or = 4 AMI > 5 > 4 Lab Order: PROTHROMBIN TIME PROFILE\E\INR; [facility] 12/14/16 18:24 Test: PROTHROMBIN TIME; Value: 18.3; Range: 12.3-14.5; Abnormal: Above high normal; Units: SECONDS; Status: F Test: INR; Value: 1.51; Status: F Test Note: ; THERAPUTIC HUMAN INR VALUES INDICATIONS NORMAL RANGES PROPHYLAXIS/TREATMENT OF: VENOUS THROMBOSIS 2.0-3.0 PULMONARY EMBOLISM 2.0-3.0 PREVENTION OF SYSTEMIC EMBOLISM FROM: TISSUE HEART VALVES 2.0-3.0 ACUTE MYOCARDIAL INFARCTION 2.0-3.0 VALVULAR HEART DISEASE 2.0-3.0 ATRIAL FIBRILLATION 2.0-3.0 MECHANICAL VALVES(HIGH RISK) 2.5-3.5 RECURRENT MYOCARDIAL INFARCTION 2.5-3.5 Lab Order: Fingerstick Blood Sugar; [facility] 12/14/16 17:56 Test: BEDSIDE GLUCOSE; Value: 162; Range: 83-110; Abnormal: Above high normal; Units: MG/DL; Status: F Lab Order: HEMOGLOBIN & HEMATOCRIT; [facility] 12/15/16 01:49 Test: HEMOGLOBIN; Value: 7.4; Range: 14.0-18.0; Abnormal: Below low normal; Units: g/dl; Status: F Test: HEMATOCRIT; Value: 23.1; Range: 42.0-52.0; Abnormal: Below low normal; Units: %; Status: F Lab Order: HEMOGLOBIN & HEMATOCRIT; [facility] 12/15/16 12:59 Test: HEMOGLOBIN; Value: 9.3; Range: 14.0-18.0; Abnormal: Below low normal; Units: g/dl; Status: F Test: HEMATOCRIT; Value: 27.6; Range: 42.0-52.0; Abnormal: Below low normal; Units: %; Status: F Lab Order: CARDIAC MARKER PANEL; [facility] 12/15/16 01:49 Test: CPK CREATINE PHOSPHOKINASE; Value: 57; Range: 39-308; Units: U/L; Status: F Test: CK-MB VALUE MASS; Value: 1.5; Range: 0.0-3.6; Units: NG/ML; Status: F Test: MB/CK RELATIVE INDEX; Value: 2.63; Range: < OR =4; Status: F Test: TROPONIN I; Value: 0.05; Range: < 0.10; Abnormal: Delta; Units: NG/ML; Status: F Test Note: ; DIAGNOSIS CRITERIA MMB ng/ml Relative Index (RI) NON-AMI < or = 5 N/A GILBERT ZONE > 5 < or = 4 AMI > 5 > 4 Lab Order: BASIC METABOLIC PROFILE; 12/15/16 06:01 Test: GLUCOSE, FASTING; Value: 132; Range: 83-110; Abnormal: Above high normal; Units: MG/DL; Status: F Test: BLOOD UREA NITROGEN; Value: 36; Range: 7-18; Abnormal: Above high normal; Units: MG/DL; Status: F Test: CREATININE FOR GFR; Value: 1.47; Range: 0.70-1.30; Abnormal: Above high normal; Units: MG/DL; Status: F Test: GLOMERULAR FILTRATION RATE; Value: 48.4; Range: >35; Status: F Test: SODIUM LEVEL; Value: 148; Range: 136-145; Abnormal: Above high normal; Units: MEQ/L; Status: F Test: POTASSIUM SERUM; Value: 3.8; Range: 3.5-5.1; Units: MEQ/L; Status: F Test: CHLORIDE LEVEL; Value: 113; Range: 98-107; Abnormal: Above high normal; Units: MEQ/L; Status: F Test: CARBON DIOXIDE LEVEL; Value: 26; Range: 21-32; Units: MEQ/L; Status: F Test: ANION GAP; Value: 9; Range: 8-16; Units: MEQ/L; Status: F Test: CALCIUM LEVEL; Value: 8.2; Range: 8.8-10.2; Abnormal: Below low normal; Units: MG/DL; Status: F Test Note: ; Units are mL/min/1.73 m2 Chronic Kidney Disease Staging per NKF: Stage I & II GFR >=60 Normal to Mildly Decreased Stage III GFR 30-59 Moderately Decreased Stage IV GFR 15-29 Severely Decreased Stage V GFR <15 Very Little GFR Left ESRD GFR <15 on [employer] VENDOR Lab Order: CBC WITH DIFFERENTIAL; SPEC12/15/16 06:01 Test: WHITE BLOOD COUNT; Value: 11.1; Range: 4.0-10.0; Abnormal: Above high normal; Units: K/mm3; Status: F Test: RED BLOOD COUNT; Value: 2.67; Range: 4.30-6.10; Abnormal: Below low normal; Units: M/mm3; Status: F Test: HEMOGLOBIN; Value: 7.5; Range: 14.0-18.0; Abnormal: Below low normal; Units: g/dl; Status: F Test: HEMATOCRIT; Value: 23.3; Range: 42.0-52.0; Abnormal: Below low normal; Units: %; Status: F Test: MEAN CORPUSCULAR VOLUME; Value: 87.1; Range: 80.0-96.0; Abnormal: Delta; Units: fl; Status: F Test: MEAN CORPUSCULAR HEMOGLOBIN; Value: 28.1; Range: 27.0-33.0; Units: pg; Status: F Test: MEAN CORPUSCULAR HGB CONC; Value: 32.3; Range: 32.0-36.5; Units: g/dl; Status: F Test: RED CELL DISTRIBUTION WIDTH; Value: 16.9; Range: 11.5-14.5; Abnormal: Above high normal; Units: %; Status: F Test: PLATELET COUNT, AUTOMATED; Value: 177; Range: 150-450; Abnormal: Delta; Units: k/mm3; Status: F Test: NEUTROPHILS %; Value: 76.9; Range: 36.0-66.0; Abnormal: Above high normal; Units: %; Status: F Test: LYMPH %; Value: 13.1; Range: 24.0-44.0; Abnormal: Below low normal; Units: %; Status: F Test: MONO %; Value: 3.8; Range: 0.0-5.0; Units: %; Status: F Test: EOS %; Value: 0.9; Range: 0.0-3.0; Units: %; Status: F Test: BASO %; Value: 0.4; Range: 0.0-1.0; Units: %; Status: F Test: LARGE UNSTAINED CELL %; Value: 4.9; Range: 0.0-4.0; Abnormal: Above high normal; Units: %; Status: F Test: NEUTROPHILS #; Value: 8.6; Range: 1.8-7.7; Abnormal: Above high normal; Units: K/mm3; Status: F Test: LYMPH #; Value: 1.5; Range: 1.5-4.5; Units: K/mm3; Status: F Test: MONO #; Value: 0.4; Range: 0.0-0.8; Units: K/mm3; Status: F Test: EOS #; Value: 0.1; Range: 0.0-0.50; Units: K/mm3; Status: F Test: BASO #; Value: 0.0; Range: 0.0-0.2; Units: K/mm3; Status: F Test: LARGE UNSTAINED CELL #; Value: 0.6; Range: 0.0-0.4; Abnormal: Above high normal; Units: K/mm3; Status: F Lab Order: PROTHROMBIN TIME PROFILE\E\INR; 12/15/16 06:01 Test: PROTHROMBIN TIME; Value: 17.0; Range: 12.3-14.5; Abnormal: Above high normal; Units: SECONDS; Status: F Test: INR; Value: 1.37; Status: F Test Note: ; THERAPUTIC HUMAN INR VALUES INDICATIONS NORMAL RANGES PROPHYLAXIS/TREATMENT OF: VENOUS THROMBOSIS 2.0-3.0 PULMONARY EMBOLISM 2.0-3.0 PREVENTION OF SYSTEMIC EMBOLISM FROM: TISSUE HEART VALVES 2.0-3.0 ACUTE MYOCARDIAL INFARCTION 2.0-3.0 VALVULAR HEART DISEASE 2.0-3.0 ATRIAL FIBRILLATION 2.0-3.0 MECHANICAL VALVES(HIGH RISK) 2.5-3.5 RECURRENT MYOCARDIAL INFARCTION 2.5-3.5 Lab Order: MAGNESIUM LEVEL; 12/15/16 06:01 Test: MAGNESIUM LEVEL; Value: 2.5; Range: 1.8-2.4; Abnormal: Above high normal; Units: MG/DL; Status: F Lab Order: Fingerstick Blood Sugar; 12/15/16 00:01 Test: BEDSIDE GLUCOSE; Value: 144; Range: 83-110; Abnormal: Above high normal; Units: MG/DL; Status: F Lab Order: URINALYSIS; SPEC'M 12/15/16 11:08 Test: APPEARANCE, URINE; Value: CLEAR; Range: CLEAR; Status: F Test: COLOR, URINE; Value: YELLOW; Range: YELLOW; Status: F Test: PH,URINE; Value: 5.0; Range: 5.0-9.0; Units: UNITS; Status: F Test: SPECIFIC GRAVITY URINE AUTO; Value: 1.019; Range: 1.002-1.035; Status: F Test: PROTEIN, URINE AUTO; Value: NEGATIVE; Range: NEGATIVE; Units: mg/dL; Status: F Test: GLUCOSE, URINE (UA) AUTO; Value: NEGATIVE; Range: NEGATIVE; Units: mg/dL; Status: F Test: KETONE, URINE AUTO; Value: NEGATIVE; Range: NEGATIVE; Units: mg/dL; Status: F Test: UROBILINOGEN, URINE AUTO; Value: 0.2; Range: 0.0-2.0; Units: mg/dL; Status: F Test: BILIRUBIN, URINE AUTO; Value: NEGATIVE; Range: NEGATIVE; Status: F Test: NITRITE, URINE AUTO; Value: NEGATIVE; Range: NEGATIVE; Status: F Test: LEUKOCYTE ESTERASE, URINE AUTO; Value: NEGATIVE; Range: NEGATIVE; Status: F Test: BLOOD, URINE BLOOD; Value: NEGATIVE; Range: NEGATIVE; Status: F Test: WBC, URINE AUTO; Value: 2; Range: 0-3; Units: /HPF; Status: F Test: RBC, URINE AUTO; Value: 2; Range: 0-3; Units: /HPF; Status: F Test: BACTERIA, URINE AUTO; Value: NEGATIVE; Range: NEGATIVE; Status: F Test: SQUAMOUS EPITHELIAL CELL UR AU; Value: 0; Range: 0-6; Units: /HPF; Status: F Test: HYALINE CAST, URINE AUTO; Value: 0; Range: 0-1; Units: /LPF; Status: F Lab Order: Fingerstick Blood Sugar; SPEC'M 12/15/16 12:31 Test: BEDSIDE GLUCOSE; Value: 151; Range: 83-110; Abnormal: Above high normal; Units: MG/DL; Status: F Radiology Order: Chest, 1 View Test: Chest, 1 View REASON FOR EXAMINATION: Shortness of Breath; Clinical: Shortness of breath .; ; Comparison: 06/19/2013 .; ; Findings:; The mediastinum and cardiac silhouette are stable. Sternotomy and pacemaker; again noted. The lung espino are clear without acute consolidation, effusion, or; pneumothorax. Skeletal structures are intact.; ; Impression:; No acute cardiopulmonary process.; ; ; Signed by; Paulo Desouza MD 12/14/2016 08:05 A; Outcome: 09:06 Decision to Hospitalize by Provider. 12/15 15:28 Patient left the ED. dy Signatures: Dispatcher [employer] EDLui Solitario MD MD pc Murray, Denise, Sustainable Design Coordinator Unit deg Paramjit Campo, RN RN Griselda Mancini, Osorio Pitts RN Stephanie Martínez RN RN Marquita Jaramillo1 Amanda Luo jp5 Irina Jaime, [employer] bnb Corrections: (The following items were deleted from the chart) 12/14 08:13 07:44 PSHx: defibrillator; raymundo fonseca MTDD
--- NOTE | 2016-12-15 19:33 | ECGEPIP ---
Stationary ECG Study [facility] - ED Test Date: 2016-12-14 Pat Name: OMARI MCINTYRE JR. Department: Room: - Gender: M Rod Buster Helper: williams : 1930 Requested By: Lui Cole Order Number: [id number] Reading MD: Carolann Keene Measurements Intervals [place] Rate: 75 P: 113 NH: 185 QRS: -85 QRSD: 152 T: 87 QT: 454 QTc: 508 Interpretive Statements ELECTRONIC ATRIAL PACEMAKER ELECTRONIC VENTRICULAR PACEMAKER ABNORMAL RHYTHM ECG Electronically Signed On 12-15-2016 19:33:18 EST by Carolann Keene
--- NOTE | 2016-12-15 19:36 | IPN ---
DATE: 12/15/2016 Mr. Wolff is feeling well this morning. He is frustrated at being in the emergency department for 22 hours. Upon my first meeting him, he is quite hungry and would like to have his esophagogastroduodenoscopy (EGD) done as quickly as possible. Temperature is 98.6, pulse 71, respiratory rate 22, blood pressure 128/59, 100% on room air. He is awake, appropriately interactive, pleasantly conversant. Breathing is symmetrical and rested. Heart is distant sounding, normal S1, S2. He has a mechanical valve. Abdomen is soft, doughy, nontender. Hypoactive bowel sounds. No significant lower extremity edema. White cell count is 11. hemoglobin 7.5, which repeated this afternoon at 9.3. Sodium is 148, BUN 36, creatinine 1.47, which is improved from 1.74 yesterday. Magnesium is 2.5. ASSESSMENT: This is an 86-year-old with acute blood loss anemia in the setting of coagulopathy related to Coumadin and in the setting of mechanical aortic valve. PLAN: 1. The patient has upper gastrointestinal (GI) bleed. The patient is nothing by mouth (n.p.o.), on proton pump inhibitor (PPI) drip. He is on intravenous (IV) fluids. Will be scoped by Dr. Perry later today for upper GI source of blood loss. 2. The patient has acute blood loss anemia. I have elected to give another unit of blood. International normalized ratio (INR) has normalized. The patient will require a heparin drip, probably started tomorrow morning, depending on the results of the esophagogastroduodenoscopy, to provide anticoagulation for his aortic valve. I have discussed this by phone with Dr. García who has assisted in the creation of this plan. 3. The patient has chronic kidney disease and acute renal failure. Renal function has improved. 4. The patient has coronary artery disease, history of myocardial infarction (VA). 5. The patient has a history of ischemic cardiomyopathy. Currently holding Lasix, spironolactone and angiotensin-converting enzyme (KARL) inhibitor. 6. The patient has a mechanical aortic valve, management per above. 7. The patient has type 2 diabetes. 8. The patient has a history of atrial fibrillation and ventricular fibrillation. 9. The patient has mechanical deep vein thrombosis (DVT) prophylaxis.
[2016-12-15] MEDS ORDERED: PROPOFOL 200 MG/20 ML VIAL As Ordered ONE (20:04)
[2016-12-15] MEDS ORDERED: LIDOCAINE 2% INJ 100 MG/5 ML SDV (FOR ANES.) As Ordered ONE (20:04)
[2016-12-15] MEDS ORDERED: GENTAMICIN SULF INJ 80MG/2ML VIAL (J1580) As Ordered ONE (20:11)
--- NOTE | 2016-12-15 20:44 | ROOR ---
Patient Name: Bernard Wolff Procedure Date: 12/15/2016 8:18 PM Date of : 1930 Age: 86 Room: Main OR Gender: Male Note Status: Finalized Procedure: Upper GI endoscopy Indications: Acute post hemorrhagic anemia, Melena Providers: Osorio PERRY MD Referring MD: LILLIAN ANDRE MD Requesting Provider: Osorio Zurita MD, 2. Inpatient 2. Inpatient Medicines: Monitored Anesthesia Care Complications: No immediate complications. Procedure: Pre-Anesthesia Assessment: - The anesthesia plan was to use moderate sedation/analgesia (conscious sedation). The Endoscope was introduced through the mouth, and advanced to the third part of duodenum. The upper GI endoscopy was accomplished without difficulty. The patient tolerated the procedure well. Findings: A widely patent Schatzki ring (acquired) was found at the gastroesophageal junction. The esophagus was normal. The stomach was normal. The examined duodenum was normal. No bleeding source found up to third portion of duodenum. Impression: - Widely patent Schatzki ring. - Normal esophagus. - Normal stomach. - Normal examined duodenum. - No bleeding source found up to third portion of duodenum. - No specimens collected. Recommendation: - Perform a colonoscopy on sunday 12/17 after colon prep on 12/16. - Clear liquid diet. - Return patient to [facility] for ongoing care. Osorio Perry MD Osorio PERRY MD 12/15/2016 8:43:48 PM This report has been signed electronically. Number of Addenda: 0 Note Initiated On: 12/15/2016 8:18 PM Estimated Blood Loss: Estimated blood loss: none.
[2016-12-15] MEDS ORDERED: ONDANSETRON 4MG/2ML VIAL (J2405) IV PRN (22:30)
[2016-12-15] MEDS ORDERED: fentaNYL 100 MCG/2 ML INJECTION (J3010) IV PRN (22:30)
[2016-12-15] MEDS: LR 1,000 ML IV SCH (23:43)
[2016-12-16] VITALS (9 sets, daily range): BP systolic 108–150; BP diastolic 53–77
[2016-12-16] MEDS: MOM 30ML SUSPENSION UDC PO ONE ×2 (00:03→00:07)
[2016-12-16] MEDS: LR 1,000 ML IV SCH (00:03)
[2016-12-16] MEDS: HumaLOG INSULIN (NovoLOG) PER UNIT SC SCH ×4 (00:17→17:44)
[2016-12-16 05:00] LABS: ADD MORPHOLOGY? YES; BASO # 0.1 K/mm3 (0.0-0.2); BASO % 0.5 % (0.0-1.0); EOS # 0.3 K/mm3 (0.0-0.50); EOS % 2.4 % (0.0-3.0); LARGE UNSTAINED CELL # 0.4 K/mm3 (0.0-0.4); LARGE UNSTAINED CELL % 3.7 % (0.0-4.0); LYMPH % 13.6 % (24.0-44.0); MEAN CORPUSCULAR HEMOGLOBIN 28.2 pg (27.0-33.0); MEAN CORPUSCULAR HGB CONC 32.5 g/dl (32.0-36.5); MEAN CORPUSCULAR VOLUME 86.9 fl (80.0-96.0); MONO # 1.1 K/mm3 (0.0-0.8); MONO % 9.1 % (0.0-5.0); NEUTROPHILS # 8.2 K/mm3 (1.8-7.7); NEUTROPHILS % 70.7 % (36.0-66.0); PLATELET COUNT, AUTOMATED 191 k/mm3 (150-450); RED CELL DISTRIBUTION WIDTH 16.2 % (11.5-14.5); WHITE BLOOD COUNT 11.6 K/mm3 (4.0-10.0)
[2016-12-16 05:02] LABS: INR 1.34
[2016-12-16 05:06] LABS: CALCIUM LEVEL 7.7 MG/DL (8.8-10.2); CREATININE FOR GFR 1.5 MG/DL (0.70-1.30); GLOMERULAR FILTRATION RATE 47.2 (>35); MAGNESIUM LEVEL 2.5 MG/DL (1.8-2.4); POTASSIUM SERUM 3.5 MEQ/L (3.5-5.1)
[2016-12-16 06:12] LABS: ANISOCYTOSIS 1+; HYPOCHROMASIA 1+
[2016-12-16] MEDS ORDERED: MOM 30ML SUSPENSION UDC PO ONE (08:00)
[2016-12-16] MEDS: DIGOXIN 0.125 MG TAB PO SCH (09:07)
[2016-12-16] MEDS: PANTOPRAZOLE 40MG TAB (PROTONIX) PO SCH (09:07)
[2016-12-16] MEDS ORDERED: GOLYTELY SOLN 4000 ML BTL PO ONE ×2 (10:00→17:00)
[2016-12-16] MEDS ORDERED: HEPARIN SOD (PORCINE) 5000 UNITS/ML VIAL IV PRN (13:45)
[2016-12-16] MEDS: HEPARIN DRIP 25,000 UNITS in APPROPRIATE DILUENT 1 EA IV SCH (15:08)
[2016-12-17] VITALS (8 sets, daily range): BP systolic 117–150; BP diastolic 57–90
[2016-12-17] MEDS: HumaLOG INSULIN (NovoLOG) PER UNIT SC SCH ×6 (00:11→20:27)
[2016-12-17 04:54] LABS: INR 1.45
[2016-12-17 05:07] LABS: BASO % 0.3 % (0.0-1.0); CALCIUM LEVEL 7.4 MG/DL (8.8-10.2); CREATININE FOR GFR 1.23 MG/DL (0.70-1.30); EOS # 0.2 K/mm3 (0.0-0.50); EOS % 2.4 % (0.0-3.0); GLOMERULAR FILTRATION RATE 59.4 (>35); LARGE UNSTAINED CELL # 0.4 K/mm3 (0.0-0.4); LARGE UNSTAINED CELL % 3.9 % (0.0-4.0); LYMPH # 1.6 K/mm3 (1.5-4.5); MAGNESIUM LEVEL 2.5 MG/DL (1.8-2.4); MEAN CORPUSCULAR HEMOGLOBIN 28.3 pg (27.0-33.0); MEAN CORPUSCULAR HGB CONC 32.6 g/dl (32.0-36.5); MEAN CORPUSCULAR VOLUME 86.7 fl (80.0-96.0); MONO # 0.8 K/mm3 (0.0-0.8); MONO % 7.8 % (0.0-5.0); NEUTROPHILS # 7.2 K/mm3 (1.8-7.7); NEUTROPHILS % 73.5 % (36.0-66.0); PLATELET COUNT, AUTOMATED 185 k/mm3 (150-450); POTASSIUM SERUM 3.4 MEQ/L (3.5-5.1); WHITE BLOOD COUNT 9.8 K/mm3 (4.0-10.0)
[2016-12-17] MEDS ORDERED: GENTAMICIN 80 MG in APPROPRIATE DILUENT 1 EA IV SCH (06:00)
[2016-12-17] MEDS ORDERED: GENTAMICIN SULF INJ 80MG/2ML VIAL (J1580) IP ONE (06:00)
[2016-12-17] MEDS ORDERED: AMPICILLIN SOD 2 GM in D5W MINI-BAG PLUS 100 ML IV SCH (06:00)
[2016-12-17] MEDS ORDERED: D5W MINI IV ONE (06:00)
[2016-12-17] MEDS ORDERED: AMPICILLIN SOD IV ONE (06:00)
[2016-12-17] MEDS ORDERED: KCL 40MEQ IN D5/0.45NS 1000ML 1,000 ML IV SCH (07:30)
--- NOTE | 2016-12-17 08:07 | REP ---
Clinical: Shortness of breath. Technique: PA and lateral. Comparison: 12/14/2016. Findings: Mediastinum is stable. Lung espino demonstrate chronic changes with superimposed left basilar atelectasis. No effusion. No pneumothorax. Skeletal structures demonstrate age-related degenerative changes. Impression: Left basilar atelectasis. Signed by Paulo Desouza MD 12/17/2016 07:58 A
[2016-12-17] MEDS: DIGOXIN 0.125 MG TAB PO SCH (09:28)
[2016-12-17] MEDS: PANTOPRAZOLE 40MG TAB (PROTONIX) PO SCH (09:28)
[2016-12-17] MEDS: FUROSEMIDE 40 MG/4 ML VIAL (J1940) IV SCH ×3 (09:41→23:53)
[2016-12-17] MEDS ORDERED: GENTAMICIN SULF INJ 80MG/2ML VIAL (J1580) As Ordered ONE (10:52)
--- NOTE | 2016-12-17 11:08 | IPN ---
DATE: 12/16/2016 Mr. Wolff is feeling pretty well today. He said that the broth that he had for breakfast was quite good. No complaints of pain, chest pain, shortness of breath. He has not had any chest pain or any obviously bloody bowel movements since the time of my presentation. Temperature is 96.9, pulse 71, respiratory rate 20, blood pressure 133/63. He is 99% on room air. Intake and output notable for a positive fluid balance of 480. Four bowel movements are noted in the chart today and they look to be black. He is awake, appropriately interactive, extremely talkative. Mucous membranes are moist. Neck is supple. No obvious elevation in jugular venous pulse (JVP). Breathing is symmetrical and rested. I:E ratio is 1:3. Heart is distant sounding, normal S1, S2. He is paced on the monitor. Abdomen is soft, nontender with hypoactive bowel sounds. LABORATORY DATA: White cell count 11.6, hemoglobin 8.6. Creatinine is 1.5. Procedural note from yesterday showed a widely patent Schatzki ring. ASSESSMENT: This is an 86-year-old with acute blood loss anemia in the setting of coagulopathy related to Coumadin and in the setting of mechanical aortic valve. PLAN: 1. The patient was thought to have an upper gastrointestinal (GI) bleed with no obvious noted upper GI bleeding source. Planned for colonoscopy tomorrow. He is having clear liquid diet today, continuing on oral proton pump inhibitor (PPI) and given a bowel regimen and preparation for the colonoscopy. I discussed this case in person yesterday with Dr. Perry. 2. The patient has acute blood loss anemia. Hemoglobin and hematocrit seems somewhat stable at this point. We have requested input from Dr. García about how long to delay the heparin drip. I have also discussed this with the patient, himself, who provides little evidence that he understands the issues involved with anticoaugulation. 3. The patient has chronic kidney disease and acute renal failure. During this stay, renal function has improved. 4. The patient has coronary artery disease with a history of myocardial infarction and ischemic cardiomyopathy. The patient is not on Lasix, spironolactone, or angiotensin-converting enzyme (KARL) inhibitor currently. 5. The patient has hypernatremia. Most likely related to IV fluid use. 6. The patient has type 2 diabetes. 7. The patient has mechanical aortic valve. 8. The patient has a history of atrial fibrillation and ventricular fibrillation with an automatic implantable cardioverter defibrillator (AICD). 9. The patient is on mechanical deep vein thrombosis (DVT) prophylaxis.
--- NOTE | 2016-12-17 11:47 | ROOR ---
Patient Name: Bernard Wolff Procedure Date: 12/17/2016 10:16 AM Date of : 1930 Age: 86 Gender: Male Note Status: Finalized Procedure: Colonoscopy Indications: Melena, Acute post hemorrhagic anemia, negative EGD Providers: Osorio PERRY MD Referring MD: 2. Inpatient 2. Inpatient, LILLIAN ANDRE MD Requesting Provider: 2. Inpatient 2. Inpatient, Osorio Zurita MD, LILLIAN ANDRE MD Medicines: Monitored Anesthesia Care Complications: No immediate complications. Procedure: Pre-Anesthesia Assessment: - The heart rate, respiratory rate, oxygen saturations, blood pressure, adequacy of pulmonary ventilation, and response to care were monitored throughout the procedure. The Colonoscope was introduced through the anus and advanced to 10 cm into the ileum. The colonoscopy was performed without difficulty. The patient tolerated the procedure well. The quality of the bowel preparation was good. Findings: The perianal and digital rectal examinations were normal. (Exam: Complete, Prep: Good or Excellent.) A few medium-mouthed diverticula were found in the sigmoid colon. The exam was otherwise without abnormality on direct and retroflexion views. colonic fluid clear yellow, i.e. no recent bleeding. Impression: - Mild diverticulosis in the sigmoid colon. - The examination of the terminal ileum and colon is otherwise normal on direct and retroflexion views. - colonic fluid clear yellow, i.e. no recent bleeding. - acute blood loss may have come from diverticular bleeding that has spontaneously resolved after correction of supratherapeutic INR - No specimens collected. Recommendation: - Advance diet as tolerated. - Resume regular diet. - Resume Coumadin (warfarin) today at prior dose. Refer to managing physician for further adjustment of therapy. - Resume heparin at prior dose today. Refer to managing physician for further adjustment of therapy. - no further studies planned at this time - Return to my office PRN. Osorio Perry MD Osorio PERRY MD 12/17/2016 11:47:30 AM This report has been signed electronically. Number of Addenda: 0 Note Initiated On: 12/17/2016 10:16 AM Estimated Blood Loss: Estimated blood loss: none.
[2016-12-17] MEDS ORDERED: ONDANSETRON 4MG/2ML VIAL (J2405) IV PRN (12:00)
[2016-12-17] MEDS ORDERED: NS 1,000 ML IV SCH (12:00)
[2016-12-17] MEDS ORDERED: POTASSIUM CHLORIDE 10 MEQ SR TABLET PO ONE (15:00)
--- NOTE | 2016-12-17 16:30 | EDDOCDS ---
Nurse's Notes [facility] Name: Bernard Wolff Jr Age: 86 yrs Sex: Male : 1930 Arrival Date: 12/14/2016 Time: 07:29 Bed Admit Hold Private MD: Diagnosis: Gastrointestinal hemorrhage, unspecified-Upper;Anemia, unspecified-symptomatic;Dehydration;Acute kidney failure Presentation: 12/14 07:36 Presenting complaint: EMS states: sudden onset difficulty breathing upon waking this jjr morning approx one hour ago, reports almost falling approx 3 times this morning with vertigo, black tarry stools 2 days ago FSBS 200's. Adult Sepsis Screening: The patient does not have new or worsening altered mentation. Patient's respiratory rate is less than 22. Systolic blood pressure is greater than 100. Patient has a qSOFA score of 0- Negative Sepsis Screen. Suicide/Homicide risk assessment- the patient denies having any suicidal and/or homicidal ideations and does not present with any other emotional, behavioral or mental health complaints. Status: Patient is not a clinical services professional or dependent. Transition of care: patient was not received from another setting of care. 07:36 Acuity: DEAJ Level 3 jjr 07:36 Method Of Arrival: Ambulance jjr Triage Assessment: 08:11 General: Appears in no apparent distress, well nourished, well groomed, Behavior is jjr appropriate for age. General: poor activity tolerance, tachypnea noted with rolling to side and sitting up. Pain: Denies pain. Neurological: Level of Consciousness is awake, alert, Moves all extremities. Speech is normal, Facial symmetry appears normal, Reports dizziness, weakness. Cardiovascular: Rhythm is ventricular pacer. Respiratory: Onset: The symptoms/episode began/occurred this morning, Airway is patent Respiratory effort is even, unlabored, Respiratory pattern is regular, Breath sounds are clear bilaterally. GI: Reports black tarry stool. Derm: Skin is dry, Skin is pale, Skin temperature is warm. Historical: - Allergies: no known allergies; - Home Meds: 1. captopril 12.5 mg Oral tab 0.5 tab 2 times per day 2. carvedilol 3.125 mg oral tab 1 tab 2 times per day 3. simvastatin 20 mg Oral tab 1 tab once daily 4. aspirin 81 mg Oral tab 1 tab once daily 5. Tradjenta 5 mg oral tab 1 tab once daily 6. furosemide 40 mg Oral tab 1 tab once daily 7. Nitrostat 0.4 mg SL subl 1 tab every 5 minutes 8. Coumadin 1 mg daily and 0.5 mg Wed and Fri Oral tab (Last dose: Unknown) 9. spironolactone 12.5 mg Oral tab once daily 10. digoxin 125 mcg Oral tab 1 tab once daily 11. Vitamin D2 50,000 unit oral cap 1 cap once wkly - PMHx: ischemic cardiomyopathy; GI bleed; Hypertension; Hypercholesterolemia; Diabetes - NIDDM: controlled; - PSHx: Cataract Surgery; Aortic Valve Replacement, Mechanical; CABG; pacer/defib; - The history from nurses notes was reviewed: and I agree with what is documented. - Social history: No barriers to communication noted, The patient speaks fluent Japanese. - : The pt / caregiver states he / she is on anticoagulants: coumadin. Home medication list is obtained from the patient, pill bottles. - Hospitalizations: : No recent hospitalization is reported. - Exposure Risk Screening:: None identified. - Immunization history:: All immunizations up-to-date. - Family history: Not pertinent. - Social history:: the patient is a non-smoker, the patient does not drink alcohol. Screenin:36 Fall Risk. jjr 08:13 Screening information is obtained from the patient. Fall risk: At risk due to age, The jjr following interventions are performed due to a positive Fall Risk Screen: added to special handling. Assistance ADL's: Requires assistance with meal preparation, this assistance is provided by family members, housework, assistance is provided by family members. Abuse/DV Screen: The patient / caregiver reports he/she is: not in a situation that causes fear, pain or injury. Nutritional screening: No deficits noted. home support is adequate. 08:14 Advance Directives: Currently, there is a health care proxy, Kat New. There is jjr no active DNR order. Assessment: 08:13 General: Appears in no apparent distress. Cardiovascular: Rhythm is ventricular pacer. jjr 09:15 General: Appears in no apparent distress, resting with eyes closed daughter at bedside. jjr 10:09 General: Appears in no apparent distress, Behavior is appropriate for age, first unit jjr PRBC infusing per order. Pain: Denies pain. Neurological: No deficits noted. Cardiovascular: Rhythm is ventricular pacer. Respiratory: Airway is patent Respiratory effort is even, unlabored, Respiratory pattern is regular. Derm: Skin is dry, Skin is pale, Skin temperature is warm. 11:11 General: Appears in no apparent distress, speaking with admission nurse. jjr Cardiovascular: Rhythm is ventricular pacer. Respiratory: Airway is patent Respiratory effort is even, unlabored, Respiratory pattern is regular. 12:12 General: Appears in no apparent distress, pt sat at bedside to use urinal, became jjr immediately tachypneic at approx 28 breaths/min and reported dizziness, returned to supine with relief of symptoms after a few minutes. Neurological: No deficits noted. Cardiovascular: Rhythm is ventricular pacer. Respiratory: Airway is patent Respiratory effort is even, unlabored, Respiratory pattern is regular. Derm: Skin is dry, Skin is pale, Skin temperature is warm. 13:10 General: Appears in no apparent distress, 2nd unit PRBC's continues to infuse, pt lying jjr quietly on stretcher, resting intermittently. Cardiovascular: Rhythm is ventricular pacer. 14:10 General: Appears in no apparent distress, Behavior is appropriate for age. jjr Neurological: No deficits noted. Cardiovascular: Rhythm is ventricular pacer. Respiratory: Airway is patent Respiratory effort is even, unlabored, Respiratory pattern is regular. Derm: Skin is dry, Skin is pale, Skin temperature is warm. 15:01 General: Appears in no apparent distress, Behavior is appropriate for age. Pain: Denies jjr pain. Neurological: No deficits noted. Cardiovascular: Rhythm is ventricular pacer. Respiratory: Airway is patent Respiratory effort is even, unlabored, Respiratory pattern is regular. 16:00 General: Appears in no apparent distress, watching television denies needs at this jjr time. Pain: Denies pain. Cardiovascular: Rhythm is ventricular pacer. Respiratory: Airway is patent Respiratory effort is even, unlabored, Respiratory pattern is regular. Vital Signs: 07:40 BP 123 / 60; Pulse 77; Resp 18; Temp 96.6(O); Pulse Ox 100% on R/A; Weight 68.04 kg dem1 (R); Pain 0/10; 07:53 Pulse 74 MON; Pulse Ox 98% ; jjr 07:53 BP 132 / 57 Supine (auto/); jjr 07:57 Pulse 70 MON; Pulse Ox 99% ; jjr 07:57 BP 111 / 52 Sitting (auto/); jjr 08:08 BP 110 / 56 (auto/); jjr 08:08 Pulse 76 MON; Pulse Ox 96% ; jjr 08:23 BP 129 / 63 (auto/); jjr 08:23 Pulse 70 MON; Pulse Ox 100% ; jjr 08:38 BP 101 / 50 (auto/); jjr 08:38 Pulse 74 MON; Pulse Ox 98% ; jjr 08:53 BP 146 / 64 (auto/); jjr 08:53 Pulse 70 MON; Pulse Ox 99% ; jjr 09:08 BP 122 / 60 (auto/); jjr 09:08 Pulse 68 MON; Pulse Ox 99% ; jjr 09:23 BP 122 / 59 (auto/); jjr 09:23 Pulse 68 MON; Resp 20; Pulse Ox 98% on R/A; jjr 09:38 BP 119 / 55 (auto/); jjr 09:38 Pulse 70 MON; Pulse Ox 98% ; jjr 09:41 BP 117 / 57 (auto/); jjr 09:41 Pulse 72 MON; Pulse Ox 99% ; jjr 09:53 BP 139 / 58 (auto/); jjr 09:53 Pulse 68 MON; Resp 18; Pulse Ox 98% on R/A; jjr 10:23 BP 142 / 65 (auto/); jjr 10:23 Pulse 74 MON; Pulse Ox 98% ; jjr 10:53 BP 139 / 63 (auto/); jjr 10:53 Pulse 68 MON; Resp 18; Pulse Ox 99% on R/A; jjr 11:23 BP 130 / 63 (auto/); jjr 11:23 Pulse 74 MON; Pulse Ox 98% ; jjr 11:53 BP 134 / 63 (auto/); jjr 11:53 Pulse 80 MON; Resp 18; Pulse Ox 99% on R/A; jjr 12:23 BP 136 / 64 (auto/); jjr 12:23 Pulse 68 MON; Pulse Ox 99% ; jjr 12:53 BP 138 / 63 (auto/); jjr 12:53 Pulse 68 MON; jjr 13:23 BP 129 / 60 (auto/); jjr 13:23 Pulse 70 MON; Pulse Ox 98% ; jjr 13:53 BP 132 / 63 (auto/); jjr 13:53 Pulse 72 MON; Resp 18; Pulse Ox 98% on R/A; jjr 14:53 BP 145 / 68 (auto/); jjr 14:53 Pulse 68 MON; Pulse Ox 98% ; jjr 15:15 BP 143 / 64 (auto/); jjr 15:15 Pulse 72 MON; jjr 15:53 BP 123 / 59 (auto/); jjr 15:53 Pulse 74 MON; Pulse Ox 98% ; jjr 16:35 BP 142 / 63 (auto/); jjr 16:35 Pulse 70 MON; Pulse Ox 98% ; jjr 16:53 Pulse 68 MON; Pulse Ox 98% ; jjr 16:53 BP 125 / 60 (auto/); Pulse 68; Resp 18; Temp 99.4(TE); Pulse Ox 98% on R/A; jjr Vitals: 07:40 Log In Time N/A - ambulance arrival. [facility] ED Course: 07:30 Patient visited by Sheeba Werner, Kiln Worker. deg 07:30 Stephanie Gonzalez, RN is Primary Nurse. deg 07:30 Patient moved to Waiting deg 07:30 Patient moved to 14 deg 07:37 Lui Howard MD is Attending Physician. pc 07:37 Triage Initiated jjr 07:40 Patient visited by Marquita Leyva. [facility] 07:42 Pt greeted and oriented to ED. Patient advised of names of staff involved in care, bnb location of call regalado, wait times and NPO status. Patient has correct armband on for positive identification. Placed in gown. Bed in low position. Call light in reach. Side rails up X2. nuclear monitoring technician on. Pulse ox on. NIBP on. 07:43 Patient visited by Irina Jaime PCA. bnb 07:46 Patient visited by Lui Howard MD. pc 07:56 EKG done. (by ED staff). Reviewed by Lui Howard MD. bnb 07:57 Patient visited by Irina Jaime PCA. bnb 08:11 Inserted saline lock: 20 gauge in right antecubital area. jjr 08:11 Maintain field IV. Dressing intact. Good blood return noted. Site clean & dry. Gauge & jjr site: 20 gauge left AC. 08:13 The patient / caregiver is instructed regarding the plan of care and ED course. jjr 08:15 Patient visited by Stephanie Gonzalez RN. jjr 08:17 DIGOXIN LEVEL Sent. pc 08:33 Chest, 1 View Returned. EDMS 09:01 [facility] Payment Agreement was scanned into [employer] and attached to record. jp5 09:05 Ya March is Hospitalizing Provider. pc 10:10 Patient visited by Stephanie Gonzalez RN. jjr 10:54 Patient name changed from Bernard\S\J\S\New Jr.\S\ to Bernard\S\J\S\New Jr. EDMS 11:11 Patient visited by Stephanie Gonzalez RN. jjr 12:13 Patient visited by Stephanie Gonzalez RN. jjr 13:10 Patient visited by Stephanie Gonzalez RN. jjr 13:55 Patient moved to Admit Hold dwg 14:10 Patient visited by Stephanie Gonzalez RN. jjr 14:49 PCR was scanned into [employer] and attached to record. gb 15:02 Patient visited by Stephanie Gonzalez RN. jjr 16:01 Patient visited by Stephanie Gonzalez RN. jjr 17:24 Patient moved to 21 jjr 17:43 Patient moved to Admit Hold deg 19:16 Primary Nurse role handed off by Stephanie Gonzalez RN jjr 12/15 14:14 ECG/EKG was scanned into [employer] and attached to record. gb 14:14 Consents was scanned into [employer] and attached to record. gb Administered Medications: 12/14 08:35 Drug: pantoprazole 80 mg [pantoprazole 40 mg intravenous solution] Route: IV; Rate: jjr bolus; Site: left antecubital; 08:48 Drug: pantoprazole 8 mg/hr [pantoprazole 40 mg intravenous solution] Route: IV; Rate: jjr 10 mL/hr; Infused Over: 72 hrs; Site: left antecubital; 10:50 Drug: Phytonadione 5 mg [phytonadione (vitamin K1) 10 mg/mL injection solution (0.5 jjr mL)] Route: IVP; Site: left antecubital; 11:47 Not Given (2 units PRBC's): NS 0.9% 250 ml IV at bolus once jjr Attachments: 14:14 Consents gb Intake: 12/14 11:23 IV: 300.00ml (PRBC); Total: 300.00ml. jjr 16:00 IV: 300.00ml (PRBC); Total: 600.00ml. jjr 16:00 IV: 300.00ml (FFP); Total: 900.00ml. jjr Output: 11:23 Urine: 125.00ml (Voided); Total: 125.00ml. jjr 16:00 Urine: 175.00ml (Voided); Total: 300.00ml. jjr Order Results: Lab Order: CBC with Diff; SPEC'M 12/14/16 07:46 Test: WHITE BLOOD COUNT; Value: 22.1; Range: 4.0-10.0; Abnormal: Above high normal; Units: K/mm3; Status: F Test: RED BLOOD COUNT; Value: 2.06; Range: 4.30-6.10; Abnormal: Below low normal; Units: M/mm3; Status: F Test: HEMOGLOBIN; Value: 6.0; Range: 14.0-18.0; Abnormal: Critical Low; Units: g/dl; Status: F Test: HEMATOCRIT; Value: 19.4; Range: 42.0-52.0; Abnormal: Below low normal; Units: %; Status: F Test: MEAN CORPUSCULAR VOLUME; Value: 94.2; Range: 80.0-96.0; Units: fl; Status: F Test: MEAN CORPUSCULAR HEMOGLOBIN; Value: 29.3; Range: 27.0-33.0; Units: pg; Status: F Test: MEAN CORPUSCULAR HGB CONC; Value: 31.1; Range: 32.0-36.5; Abnormal: Below low normal; Units: g/dl; Status: F Test: RED CELL DISTRIBUTION WIDTH; Value: 15.2; Range: 11.5-14.5; Abnormal: Above high normal; Units: %; Status: F Test: PLATELET COUNT, AUTOMATED; Value: 293; Range: 150-450; Units: k/mm3; Status: F Test: NEUTROPHILS %; Value: 75.7; Range: 36.0-66.0; Abnormal: Above high normal; Units: %; Status: F Test: LYMPH %; Value: 11.9; Range: 24.0-44.0; Abnormal: Below low normal; Units: %; Status: F Test: MONO %; Value: 8.2; Range: 0.0-5.0; Abnormal: Above high normal; Units: %; Status: F Test: EOS %; Value: 0.4; Range: 0.0-3.0; Units: %; Status: F Test: BASO %; Value: 0.3; Range: 0.0-1.0; Units: %; Status: F Test: LARGE UNSTAINED CELL %; Value: 3.5; Range: 0.0-4.0; Units: %; Status: F Test: NEUTROPHILS #; Value: 16.7; Range: 1.8-7.7; Abnormal: Above high normal; Units: K/mm3; Status: F Test: LYMPH #; Value: 3.4; Range: 1.5-4.5; Units: K/mm3; Status: F Test: MONO #; Value: 1.8; Range: 0.0-0.8; Abnormal: Above high normal; Units: K/mm3; Status: F Test: EOS #; Value: 0.1; Range: 0.0-0.50; Units: K/mm3; Status: F Test: BASO #; Value: 0.1; Range: 0.0-0.2; Units: K/mm3; Status: F Test: LARGE UNSTAINED CELL #; Value: 0.8; Range: 0.0-0.4; Abnormal: Above high normal; Units: K/mm3; Status: F Lab Order: MED Profile; [facility]' 12/14/16 07:46 Test: GLUCOSE, FASTING; Value: 214; Range: 83-110; Abnormal: Above high normal; Units: MG/DL; Status: F Test: BLOOD UREA NITROGEN; Value: 45; Range: 7-18; Abnormal: Above high normal; Units: MG/DL; Status: F Test: CREATININE FOR GFR; Value: 1.74; Range: 0.70-1.30; Abnormal: Above high normal; Units: MG/DL; Status: F Test: GLOMERULAR FILTRATION RATE; Value: 39.8; Range: >35; Status: F Test: SODIUM LEVEL; Value: 144; Range: 136-145; Units: MEQ/L; Status: F Test: POTASSIUM SERUM; Value: 4.0; Range: 3.5-5.1; Units: MEQ/L; Status: F Test: CHLORIDE LEVEL; Value: 110; Range: 98-107; Abnormal: Above high normal; Units: MEQ/L; Status: F Test: CARBON DIOXIDE LEVEL; Value: 21; Range: 21-32; Units: MEQ/L; Status: F Test: ANION GAP; Value: 13; Range: 8-16; Units: MEQ/L; Status: F Test: CALCIUM LEVEL; Value: 8.1; Range: 8.8-10.2; Abnormal: Below low normal; Units: MG/DL; Status: F Test Note: ; Units are mL/min/1.73 m2 Chronic Kidney Disease Staging per NKF: Stage I & II GFR >=60 Normal to Mildly Decreased Stage III GFR 30-59 Moderately Decreased Stage IV GFR 15-29 Severely Decreased Stage V GFR <15 Very Little GFR Left ESRD GFR <15 on PLUMBER GASFITTER Lab Order: BNP; SPEC'M 12/14/16 07:47 Test: BRAIN NATRIURETIC PEPTIDE; Value: 77.3; Range: <100; Units: PG/ML; Status: F Lab Order: CIP; SPEC'M 12/14/16 07:46 Test: CPK CREATINE PHOSPHOKINASE; Value: 33; Range: 39-308; Abnormal: Below low normal; Units: U/L; Status: F Test: CK-MB VALUE MASS; Value: 1.8; Range: 0.0-3.6; Units: NG/ML; Status: F Test: MB/CK RELATIVE INDEX; Value: 5.45; Range: < OR =4; Abnormal: Above high normal; Status: F Test Note: ; DIAGNOSIS CRITERIA MMB ng/ml Relative Index (RI) NON-AMI < or = 5 N/A GILBERT ZONE > 5 < or = 4 AMI > 5 > 4 Lab Order: Troponin; [facility] 12/14/16 07:46 Test: TROPONIN I; Value: 0.03; Range: < 0.10; Units: NG/ML; Status: F Test Note: ; Troponin I Reference Interval for Siemens batterii LOCI: 99th Percentile= 0.00-0.045 ng/ml Risk Stratification: <= 0.10 ng/ml Decreased Risk for Adverse Clinical Events. 0.10-1.50 ng/ml Increased Risk for Adverse Clinical Events. Evaluation of additional criterion and/or repeat testing in 2-6 hours is suggested to rule out myocardial damage. >= 1.50 ng/ml Indicative of Myocardial Injury. Lab Order: Pt & Aptt; [facility] 07:46 Test: PROTHROMBIN TIME; Value: 55.1; Range: 12.3-14.5; Abnormal: Above high normal; Units: SECONDS; Status: F Test: INR; Value: 6.25; Abnormal: Above upper panic limits; Status: F Test: PARTIAL THROMBOPLASTIN TIME; Value: 49.6; Range: 26.6-37.1; Abnormal: Above high normal; Units: SECONDS; Status: F Test Note: ; THERAPUTIC HUMAN INR VALUES INDICATIONS NORMAL RANGES PROPHYLAXIS/TREATMENT OF: VENOUS THROMBOSIS 2.0-3.0 PULMONARY EMBOLISM 2.0-3.0 PREVENTION OF SYSTEMIC EMBOLISM FROM: TISSUE HEART VALVES 2.0-3.0 ACUTE MYOCARDIAL INFARCTION 2.0-3.0 VALVULAR HEART DISEASE 2.0-3.0 ATRIAL FIBRILLATION 2.0-3.0 MECHANICAL VALVES(HIGH RISK) 2.5-3.5 RECURRENT MYOCARDIAL INFARCTION 2.5-3.5 Lab Order: Type & Screen; [facility] 07:47 Test: BLOOD TYPE; Value: A POS; Status: F Test: AB SCREEN (INDIRECT TRA)VIS; Value: NEGATIVE; Status: F Lab Order: Liver Profile; [facility] 12/14/16 07:46 Test: AST/SGOT; Value: 15; Range: 15-37; Units: U/L; Status: F Test: ALT/SGPT; Value: 22; Range: 12-78; Units: U/L; Status: F Test: ALKALINE PHOSPHATASE; Value: 48; Range: 45-117; Units: U/L; Status: F Test: BILIRUBIN,TOTAL; Value: 0.5; Range: 0.2-1.0; Units: MG/DL; Status: F Test: BILIRUBIN,DIRECT; Value: 0.1; Range: 0.0-0.2; Units: MG/DL; Status: F Test: TOTAL PROTEIN; Value: 5.6; Range: 6.4-8.2; Abnormal: Below low normal; Units: GM/DL; Status: F Test: ALBUMIN; Value: 3.2; Range: 3.2-5.2; Units: GM/DL; Status: F Test: ALBUMIN/GLOBULIN RATIO; Value: 1.33; Range: 1.00-1.93; Status: F Lab Order: A1C; [facility] 12/14/16 07:46 Test: HEMOGLOBIN A1c; Value: 5.8; Range: 4.5-6.2; Units: %; Status: F Test: ESTIMATED AVERAGE GLUCOSE; Value: 120; Range: 60-110; Abnormal: Above high normal; Units: MG/DL; Status: F Lab Order: DIGOXIN LEVEL; [facility] 12/14/16 07:46 Test: DIGOXIN LEVEL; Value: 0.9; Range: 0.5-2.0; Units: NG/ML; Status: F Lab Order: HEMOGLOBIN & HEMATOCRIT; [facility] 12/14/16 18:24 Test: HEMOGLOBIN; Value: 8.4; Range: 14.0-18.0; Units: g/dl; Status: F Test: HEMATOCRIT; Value: 25.1; Range: 42.0-52.0; Abnormal: Below low normal; Units: %; Status: F Lab Order: CARDIAC MARKER PANEL; [facility] 12/14/16 18:24 Test: CPK CREATINE PHOSPHOKINASE; Value: 53; Range: 39-308; Units: U/L; Status: F Test: CK-MB VALUE MASS; Value: 1.8; Range: 0.0-3.6; Units: NG/ML; Status: F Test: MB/CK RELATIVE INDEX; Value: 3.39; Range: < OR =4; Status: F Test: TROPONIN I; Value: 0.04; Range: < 0.10; Abnormal: Delta; Units: NG/ML; Status: F Test Note: ; DIAGNOSIS CRITERIA MMB ng/ml Relative Index (RI) NON-AMI < or = 5 N/A GILBERT ZONE > 5 < or = 4 AMI > 5 > 4 Lab Order: PROTHROMBIN TIME PROFILE\E\INR; [facility] 12/14/16 18:24 Test: PROTHROMBIN TIME; Value: 18.3; Range: 12.3-14.5; Abnormal: Above high normal; Units: SECONDS; Status: F Test: INR; Value: 1.51; Status: F Test Note: ; THERAPUTIC HUMAN INR VALUES INDICATIONS NORMAL RANGES PROPHYLAXIS/TREATMENT OF: VENOUS THROMBOSIS 2.0-3.0 PULMONARY EMBOLISM 2.0-3.0 PREVENTION OF SYSTEMIC EMBOLISM FROM: TISSUE HEART VALVES 2.0-3.0 ACUTE MYOCARDIAL INFARCTION 2.0-3.0 VALVULAR HEART DISEASE 2.0-3.0 ATRIAL FIBRILLATION 2.0-3.0 MECHANICAL VALVES(HIGH RISK) 2.5-3.5 RECURRENT MYOCARDIAL INFARCTION 2.5-3.5 Lab Order: Fingerstick Blood Sugar; [facility] 12/14/16 17:56 Test: BEDSIDE GLUCOSE; Value: 162; Range: 83-110; Abnormal: Above high normal; Units: MG/DL; Status: F Lab Order: HEMOGLOBIN & HEMATOCRIT; [facility] 12/15/16 01:49 Test: HEMOGLOBIN; Value: 7.4; Range: 14.0-18.0; Abnormal: Below low normal; Units: g/dl; Status: F Test: HEMATOCRIT; Value: 23.1; Range: 42.0-52.0; Abnormal: Below low normal; Units: %; Status: F Lab Order: HEMOGLOBIN & HEMATOCRIT; [facility] 12/15/16 12:59 Test: HEMOGLOBIN; Value: 9.3; Range: 14.0-18.0; Abnormal: Below low normal; Units: g/dl; Status: F Test: HEMATOCRIT; Value: 27.6; Range: 42.0-52.0; Abnormal: Below low normal; Units: %; Status: F Lab Order: CARDIAC MARKER PANEL; [facility] 12/15/16 01:49 Test: CPK CREATINE PHOSPHOKINASE; Value: 57; Range: 39-308; Units: U/L; Status: F Test: CK-MB VALUE MASS; Value: 1.5; Range: 0.0-3.6; Units: NG/ML; Status: F Test: MB/CK RELATIVE INDEX; Value: 2.63; Range: < OR =4; Status: F Test: TROPONIN I; Value: 0.05; Range: < 0.10; Abnormal: Delta; Units: NG/ML; Status: F Test Note: ; DIAGNOSIS CRITERIA MMB ng/ml Relative Index (RI) NON-AMI < or = 5 N/A GILBERT ZONE > 5 < or = 4 AMI > 5 > 4 Lab Order: BASIC METABOLIC PROFILE; 12/15/16 06:01 Test: GLUCOSE, FASTING; Value: 132; Range: 83-110; Abnormal: Above high normal; Units: MG/DL; Status: F Test: BLOOD UREA NITROGEN; Value: 36; Range: 7-18; Abnormal: Above high normal; Units: MG/DL; Status: F Test: CREATININE FOR GFR; Value: 1.47; Range: 0.70-1.30; Abnormal: Above high normal; Units: MG/DL; Status: F Test: GLOMERULAR FILTRATION RATE; Value: 48.4; Range: >35; Status: F Test: SODIUM LEVEL; Value: 148; Range: 136-145; Abnormal: Above high normal; Units: MEQ/L; Status: F Test: POTASSIUM SERUM; Value: 3.8; Range: 3.5-5.1; Units: MEQ/L; Status: F Test: CHLORIDE LEVEL; Value: 113; Range: 98-107; Abnormal: Above high normal; Units: MEQ/L; Status: F Test: CARBON DIOXIDE LEVEL; Value: 26; Range: 21-32; Units: MEQ/L; Status: F Test: ANION GAP; Value: 9; Range: 8-16; Units: MEQ/L; Status: F Test: CALCIUM LEVEL; Value: 8.2; Range: 8.8-10.2; Abnormal: Below low normal; Units: MG/DL; Status: F Test Note: ; Units are mL/min/1.73 m2 Chronic Kidney Disease Staging per NKF: Stage I & II GFR >=60 Normal to Mildly Decreased Stage III GFR 30-59 Moderately Decreased Stage IV GFR 15-29 Severely Decreased Stage V GFR <15 Very Little GFR Left ESRD GFR <15 on PLUMBER GASFITTER Lab Order: CBC WITH DIFFERENTIAL; SPEC12/15/16 06:01 Test: WHITE BLOOD COUNT; Value: 11.1; Range: 4.0-10.0; Abnormal: Above high normal; Units: K/mm3; Status: F Test: RED BLOOD COUNT; Value: 2.67; Range: 4.30-6.10; Abnormal: Below low normal; Units: M/mm3; Status: F Test: HEMOGLOBIN; Value: 7.5; Range: 14.0-18.0; Abnormal: Below low normal; Units: g/dl; Status: F Test: HEMATOCRIT; Value: 23.3; Range: 42.0-52.0; Abnormal: Below low normal; Units: %; Status: F Test: MEAN CORPUSCULAR VOLUME; Value: 87.1; Range: 80.0-96.0; Abnormal: Delta; Units: fl; Status: F Test: MEAN CORPUSCULAR HEMOGLOBIN; Value: 28.1; Range: 27.0-33.0; Units: pg; Status: F Test: MEAN CORPUSCULAR HGB CONC; Value: 32.3; Range: 32.0-36.5; Units: g/dl; Status: F Test: RED CELL DISTRIBUTION WIDTH; Value: 16.9; Range: 11.5-14.5; Abnormal: Above high normal; Units: %; Status: F Test: PLATELET COUNT, AUTOMATED; Value: 177; Range: 150-450; Abnormal: Delta; Units: k/mm3; Status: F Test: NEUTROPHILS %; Value: 76.9; Range: 36.0-66.0; Abnormal: Above high normal; Units: %; Status: F Test: LYMPH %; Value: 13.1; Range: 24.0-44.0; Abnormal: Below low normal; Units: %; Status: F Test: MONO %; Value: 3.8; Range: 0.0-5.0; Units: %; Status: F Test: EOS %; Value: 0.9; Range: 0.0-3.0; Units: %; Status: F Test: BASO %; Value: 0.4; Range: 0.0-1.0; Units: %; Status: F Test: LARGE UNSTAINED CELL %; Value: 4.9; Range: 0.0-4.0; Abnormal: Above high normal; Units: %; Status: F Test: NEUTROPHILS #; Value: 8.6; Range: 1.8-7.7; Abnormal: Above high normal; Units: K/mm3; Status: F Test: LYMPH #; Value: 1.5; Range: 1.5-4.5; Units: K/mm3; Status: F Test: MONO #; Value: 0.4; Range: 0.0-0.8; Units: K/mm3; Status: F Test: EOS #; Value: 0.1; Range: 0.0-0.50; Units: K/mm3; Status: F Test: BASO #; Value: 0.0; Range: 0.0-0.2; Units: K/mm3; Status: F Test: LARGE UNSTAINED CELL #; Value: 0.6; Range: 0.0-0.4; Abnormal: Above high normal; Units: K/mm3; Status: F Lab Order: PROTHROMBIN TIME PROFILE\E\INR; 12/15/16 06:01 Test: PROTHROMBIN TIME; Value: 17.0; Range: 12.3-14.5; Abnormal: Above high normal; Units: SECONDS; Status: F Test: INR; Value: 1.37; Status: F Test Note: ; THERAPUTIC HUMAN INR VALUES INDICATIONS NORMAL RANGES PROPHYLAXIS/TREATMENT OF: VENOUS THROMBOSIS 2.0-3.0 PULMONARY EMBOLISM 2.0-3.0 PREVENTION OF SYSTEMIC EMBOLISM FROM: TISSUE HEART VALVES 2.0-3.0 ACUTE MYOCARDIAL INFARCTION 2.0-3.0 VALVULAR HEART DISEASE 2.0-3.0 ATRIAL FIBRILLATION 2.0-3.0 MECHANICAL VALVES(HIGH RISK) 2.5-3.5 RECURRENT MYOCARDIAL INFARCTION 2.5-3.5 Lab Order: MAGNESIUM LEVEL; 12/15/16 06:01 Test: MAGNESIUM LEVEL; Value: 2.5; Range: 1.8-2.4; Abnormal: Above high normal; Units: MG/DL; Status: F Lab Order: Fingerstick Blood Sugar; 12/15/16 00:01 Test: BEDSIDE GLUCOSE; Value: 144; Range: 83-110; Abnormal: Above high normal; Units: MG/DL; Status: F Lab Order: URINALYSIS; SPEC'M 12/15/16 11:08 Test: APPEARANCE, URINE; Value: CLEAR; Range: CLEAR; Status: F Test: COLOR, URINE; Value: YELLOW; Range: YELLOW; Status: F Test: PH,URINE; Value: 5.0; Range: 5.0-9.0; Units: UNITS; Status: F Test: SPECIFIC GRAVITY URINE AUTO; Value: 1.019; Range: 1.002-1.035; Status: F Test: PROTEIN, URINE AUTO; Value: NEGATIVE; Range: NEGATIVE; Units: mg/dL; Status: F Test: GLUCOSE, URINE (UA) AUTO; Value: NEGATIVE; Range: NEGATIVE; Units: mg/dL; Status: F Test: KETONE, URINE AUTO; Value: NEGATIVE; Range: NEGATIVE; Units: mg/dL; Status: F Test: UROBILINOGEN, URINE AUTO; Value: 0.2; Range: 0.0-2.0; Units: mg/dL; Status: F Test: BILIRUBIN, URINE AUTO; Value: NEGATIVE; Range: NEGATIVE; Status: F Test: NITRITE, URINE AUTO; Value: NEGATIVE; Range: NEGATIVE; Status: F Test: LEUKOCYTE ESTERASE, URINE AUTO; Value: NEGATIVE; Range: NEGATIVE; Status: F Test: BLOOD, URINE BLOOD; Value: NEGATIVE; Range: NEGATIVE; Status: F Test: WBC, URINE AUTO; Value: 2; Range: 0-3; Units: /HPF; Status: F Test: RBC, URINE AUTO; Value: 2; Range: 0-3; Units: /HPF; Status: F Test: BACTERIA, URINE AUTO; Value: NEGATIVE; Range: NEGATIVE; Status: F Test: SQUAMOUS EPITHELIAL CELL UR AU; Value: 0; Range: 0-6; Units: /HPF; Status: F Test: HYALINE CAST, URINE AUTO; Value: 0; Range: 0-1; Units: /LPF; Status: F Lab Order: Fingerstick Blood Sugar; SPEC'M 12/15/16 12:31 Test: BEDSIDE GLUCOSE; Value: 151; Range: 83-110; Abnormal: Above high normal; Units: MG/DL; Status: F Radiology Order: Chest, 1 View Test: Chest, 1 View REASON FOR EXAMINATION: Shortness of Breath; Clinical: Shortness of breath .; ; Comparison: 06/19/2013 .; ; Findings:; The mediastinum and cardiac silhouette are stable. Sternotomy and pacemaker; again noted. The lung espino are clear without acute consolidation, effusion, or; pneumothorax. Skeletal structures are intact.; ; Impression:; No acute cardiopulmonary process.; ; ; Signed by; Paulo Desouza MD 12/14/2016 08:05 A; Outcome: 09:06 Decision to Hospitalize by Provider. 12/15 15:28 Patient left the ED. dy Signatures: Dispatcher [employer] EDLui Solitario MD MD pc Murray, Denise, Kiln Worker Unit deg Paramjit Campo, RN RN Griselda Mancini, Osorio Pitts RN Stephanie Martínez RN RN Marquita Jaramillo1 Amanda Luo jp5 Irina Jaime, HALLIE PROCESS TECH bnb Corrections: (The following items were deleted from the chart) 12/14 08:13 07:44 PSHx: defibrillator; raymundo fonseca Chart Complete MTDD
--- NOTE | 2016-12-17 16:30 | EDDOCDS ---
Physician Documentation [facility] Name: Bernard Wolff Jr Age: 86 yrs Sex: Male : 1930 Arrival Date: 12/14/2016 Time: 07:29 Bed Admit Hold Private MD: Disposition: 12/14 09:03 Critical Care: Critical care not applicable. pc Disposition: 12/14/16 09:06 Hospitalization ordered by Ya March for Inpatient Admission. Preliminary diagnosis are Gastrointestinal hemorrhage, unspecified - Upper, Anemia, unspecified - symptomatic, Dehydration, Acute kidney failure. - Bed requested for PCU. - Status is Inpatient Admission. dy - Condition is Stable. - Problem is new. - Symptoms have improved. HPI: 07:46 This 86 yrs old Male presents to ER via Ambulance with complaints of pc Breathing Difficulty. 07:46 The history is obtained from the patient. He started to have black bowel movements 3-4 pc days ago. He has been feeling dizzy when he stands up and SOB when he walks. He denies any nausea or vomiting but has lost his appetite. He denies chest pain. He denies any other bleeding sites. He is warfarin but his pill bottles suggest he has been out of them for a week. The patient is a very vague historian. At their worst, the symptoms were moderate. In the emergency department, the symptoms are mild. The patient has experienced a previous episode, approximately 4 years ago. The patient has not recently seen a physician. Historical: - Allergies: no known allergies; - Home Meds: 1. captopril 12.5 mg Oral tab 0.5 tab 2 times per day 2. carvedilol 3.125 mg oral tab 1 tab 2 times per day 3. simvastatin 20 mg Oral tab 1 tab once daily 4. aspirin 81 mg Oral tab 1 tab once daily 5. Tradjenta 5 mg oral tab 1 tab once daily 6. furosemide 40 mg Oral tab 1 tab once daily 7. Nitrostat 0.4 mg SL subl 1 tab every 5 minutes 8. Coumadin 1 mg daily and 0.5 mg Wed and Fri Oral tab (Last dose: Unknown) 9. spironolactone 12.5 mg Oral tab once daily 10. digoxin 125 mcg Oral tab 1 tab once daily 11. Vitamin D2 50,000 unit oral cap 1 cap once wkly - PMHx: ischemic cardiomyopathy; GI bleed; Hypertension; Hypercholesterolemia; Diabetes - NIDDM: controlled; - PSHx: Cataract Surgery; Aortic Valve Replacement, Mechanical; CABG; pacer/defib; - The history from nurses notes was reviewed: and I agree with what is documented. - Social history: No barriers to communication noted, The patient speaks fluent Kenyan. - : The pt / caregiver states he / she is on anticoagulants: coumadin. Home medication list is obtained from the patient, pill bottles. - Hospitalizations: : No recent hospitalization is reported. - Exposure Risk Screening:: None identified. - Immunization history:: All immunizations up-to-date. - Family history: Not pertinent. - Social history:: the patient is a non-smoker, the patient does not drink alcohol. ROS: 07:46 All systems are negative except as listed. pc Exam: 07:46 General Appearance: no acute distress, alert. pc 07:46 EENT: ears, nose and throat normal, pale conjunctiva, mucous membranes dry. 07:46 Neck: The exam reveals no acute abnormalities. ROM is normal and painless. No nuchal rigidity is noted.. 07:46 Respiratory: no respiratory distress, normal breath sounds, chest non-tender. 07:46 CVS: regular pulse rate, regular rhythm, normal S1 and S2, no murmurs, strong peripheral pulses, normal capillary refill. 07:46 Abdomen: soft, non-tender, no organomegaly, normal bowel sounds, Rectal exam: stool is guaiac positive, black. 07:46 Back: normal inspection. 07:46 Skin: warm, dry, the skin appears pale, diffusely. 07:46 Extremities: The extremities have a grossly normal appearance, are non-tender, without acute ROM abnormalities. 07:46 Neuro: oriented x 3, cranial nerves normal as tested, no motor deficits, no sensory deficits. 07:46 Psych: normal mood. Vital Signs: 07:40 BP 123 / 60; Pulse 77; Resp 18; Temp 96.6(O); Pulse Ox 100% on R/A; Weight 68.04 kg / dem1 150 lbs (R); Pain 0/10; 07:53 Pulse 74 MON; Pulse Ox 98% ; jjr 07:53 BP 132 / 57 Supine (auto/); jjr 07:57 Pulse 70 MON; Pulse Ox 99% ; jjr 07:57 BP 111 / 52 Sitting (auto/); jjr 08:08 BP 110 / 56 (auto/); jjr 08:08 Pulse 76 MON; Pulse Ox 96% ; jjr 08:23 BP 129 / 63 (auto/); jjr 08:23 Pulse 70 MON; Pulse Ox 100% ; jjr 08:38 BP 101 / 50 (auto/); jjr 08:38 Pulse 74 MON; Pulse Ox 98% ; jjr 08:53 BP 146 / 64 (auto/); jjr 08:53 Pulse 70 MON; Pulse Ox 99% ; jjr 09:08 BP 122 / 60 (auto/); jjr 09:08 Pulse 68 MON; Pulse Ox 99% ; jjr 09:23 BP 122 / 59 (auto/); jjr 09:23 Pulse 68 MON; Resp 20; Pulse Ox 98% on R/A; jjr 09:38 BP 119 / 55 (auto/); jjr 09:38 Pulse 70 MON; Pulse Ox 98% ; jjr 09:41 BP 117 / 57 (auto/); jjr 09:41 Pulse 72 MON; Pulse Ox 99% ; jjr 09:53 BP 139 / 58 (auto/); jjr 09:53 Pulse 68 MON; Resp 18; Pulse Ox 98% on R/A; jjr 10:23 BP 142 / 65 (auto/); jjr 10:23 Pulse 74 MON; Pulse Ox 98% ; jjr 10:53 BP 139 / 63 (auto/); jjr 10:53 Pulse 68 MON; Resp 18; Pulse Ox 99% on R/A; jjr 11:23 BP 130 / 63 (auto/); jjr 11:23 Pulse 74 MON; Pulse Ox 98% ; jjr 11:53 BP 134 / 63 (auto/); jjr 11:53 Pulse 80 MON; Resp 18; Pulse Ox 99% on R/A; jjr 12:23 BP 136 / 64 (auto/); jjr 12:23 Pulse 68 MON; Pulse Ox 99% ; jjr 12:53 BP 138 / 63 (auto/); jjr 12:53 Pulse 68 MON; jjr 13:23 BP 129 / 60 (auto/); jjr 13:23 Pulse 70 MON; Pulse Ox 98% ; jjr 13:53 BP 132 / 63 (auto/); jjr 13:53 Pulse 72 MON; Resp 18; Pulse Ox 98% on R/A; jjr 14:53 BP 145 / 68 (auto/); jjr 14:53 Pulse 68 MON; Pulse Ox 98% ; jjr 15:15 BP 143 / 64 (auto/); jjr 15:15 Pulse 72 MON; jjr 15:53 BP 123 / 59 (auto/); jjr 15:53 Pulse 74 MON; Pulse Ox 98% ; jjr 16:35 BP 142 / 63 (auto/); jjr 16:35 Pulse 70 MON; Pulse Ox 98% ; jjr 16:53 Pulse 68 MON; Pulse Ox 98% ; jjr 16:53 BP 125 / 60 (auto/); Pulse 68; Resp 18; Temp 99.4(TE); Pulse Ox 98% on R/A; jjr MDM: 07:44 IV Saline Lock x 2 ordered. pc 07:44 Chemical Pathologist/Pulse Ox/q 30 min VS ordered. pc 07:44 NS 0.9% 250 ml IV at bolus once ordered. pc 07:44 ECG WITH READING ER PHYS+CARDIAG ordered. EDMS 07:46 CBC with Diff Ordered. EDMS 07:46 MED Profile Ordered. EDMS 07:46 BNP Ordered. EDMS 07:46 CIP Ordered. EDMS 07:46 Troponin Ordered. EDMS 07:46 Pt & Aptt Ordered. EDMS 07:46 Liver Profile Ordered. EDMS 07:46 A1C Ordered. EDMS 07:46 Chest, 1 View Ordered. EDMS 07:46 Type & Screen Ordered. EDMS 07:46 NOTHING BY MOUTH+DIET ordered. EDMS 07:46 Differential Diagnosis: UGI bleed, anemia - symptomatic. Plan: labs, EKG, imaging, IVF. pc 07:51 DIGOXIN LEVEL Ordered. EDMS 07:57 Test interpretation: EKG. pc 08:17 CBC with Diff Reviewed. pc 08:19 Transfuse PRBC's 2 units, ensure PRBCs ordered in lab ordered. pc 08:19 pantoprazole 80 mg IV at bolus once ordered. pc 08:19 pantoprazole 8 mg/hr IV at 10 mL/hr continuous over 72 hrs; 40mg (10mL): withdraw 10mL pc from 50mL bag of NS then add protonix ordered. 08:19 Type and Cross, Packed Cells Ordered. EDMS 08:19 BED REQUEST+ADM ordered. EDMS 08:52 BNP Reviewed. pc 08:52 Type & Screen Reviewed. pc 08:52 Chest, 1 View Reviewed. pc 09:01 [facility] Payment Agreement was scanned into [employer] and attached to record. jp5 09:01 Financial registration complete. jp5 09:03 Data reviewed: old medical records, vital signs, nurses notes, EKG(s), lab test pc results, all radiology studies and available results. Test interpretation: LAB - all labs as ordered have been reviewed, interpreted and considered in the overall management of the clinical presentation; X-RAY - interpreted by Radiologist and personally reviewed, 1 view chest no acute disease. The patient has been re-examined and re-evaluated. The patient's symptoms have mildly improved after treatment. Physician consultation: Dr. Ya March regarding admission, and will see patient in ED, shortly. Disposition: The historical points, examination findings, and any diagnostic results supporting the provided diagnosis, were discussed with the patient or legal guardian. The need for further work-up and/or treatment in the hospital was explained. 09:06 MED Profile Reviewed. pc 09:06 Liver Profile Reviewed. pc 09:06 Troponin Reviewed. pc 10:03 HEMOGLOBIN & HEMATOCRIT Ordered. EDMS 10:04 CARDIAC MARKER PANEL Ordered. EDMS 10:04 OCCULT BLOOD STOOL SPECIMEN Ordered. EDMS 10:04 BLOOD CULTURES Ordered. EDMS 10:06 Admission / Observation Status ordered. EDMS 10:06 NPO DIET ordered. EDMS 11:08 Phytonadione 5 mg IVP once ordered. jjr 13:26 FROZEN PLASMA 24 Ordered. EDMS 13:27 PROTHROMBIN TIME PROFILE\E\INR Ordered. EDMS 14:49 PCR was scanned into [employer] and attached to record. gb 18:10 Fingerstick Blood Sugar Ordered. EDMS 19:30 HEMOGLOBIN & HEMATOCRIT Ordered. EDMS 19:30 HEMOGLOBIN & HEMATOCRIT Ordered. EDMS 19:30 HEMOGLOBIN & HEMATOCRIT Ordered. EDMS 19:31 CARDIAC MARKER PANEL Ordered. EDMS 19:31 BASIC METABOLIC PROFILE Ordered. EDMS 19:31 CBC WITH DIFFERENTIAL Ordered. EDMS 19:31 PROTHROMBIN TIME PROFILE\E\INR Ordered. EDMS 19:31 MAGNESIUM LEVEL Ordered. EDMS 20:19 NPO FOR TEST/PROCEDURE ordered. EDMS 12/15 00:09 Fingerstick Blood Sugar Ordered. EDMS 07:13 PACKED CELLS Ordered. EDMS 10:52 URINALYSIS Ordered. EDMS 12:39 Fingerstick Blood Sugar Ordered. EDMS 14:14 ECG/EKG was scanned into [employer] and attached to record. 14:14 Consents was scanned into [employer] and attached to record. EC/16 07:57 Rate is 75 beats/min. Rhythm is regular, Paced. Clinical impression: Paced Rhthym and pc with 1mm concordant ST depression in V2 (Scarbossa criteria) ?[place]. Administered Medications: 08:35 Drug: pantoprazole 80 mg [pantoprazole 40 mg intravenous solution] Route: IV; Rate: jjr bolus; Site: left antecubital; 08:48 Drug: pantoprazole 8 mg/hr [pantoprazole 40 mg intravenous solution] Route: IV; Rate: jjr 10 mL/hr; Infused Over: 72 hrs; Site: left antecubital; 10:50 Drug: Phytonadione 5 mg [phytonadione (vitamin K1) 10 mg/mL injection solution (0.5 jjr mL)] Route: IVP; Site: left antecubital; 11:47 Not Given (2 units PRBC's): NS 0.9% 250 ml IV at bolus once jjr Signatures: Dispatcher [employer] EDMS Lui Howard MD MD pc Murray, Denise, Leak Detector Unit deg Nanette Rao RN Griselda Mckeon mcp, Shawn Reg Osorio Marie RN RN dy Raymond, Jessica, RN RN jjr Price, Jennalee jp5 The chart was reviewed and I authenticate all verbal orders and agree with the evaluation and treatment provided.Corrections: (The following items were deleted from the chart) 07:51 07:46 DIGOXIN LEVEL+LAB ordered. EDMS EDMS 08:13 07:44 PSHx: defibrillator; jjr jjr 08:23 08:21 TYPE & SCREEN ordered. EDMS EDMS 19:39 10:03 HEMOGLOBIN & HEMATOCRIT ordered. EDMS EDMS 19:40 10:03 CARDIAC MARKER PANEL ordered. EDMS EDMS 12/15 05:36 05:34 CBC WITH DIFFERENTIAL ordered. EDMS EDMS 07:19 07:15 TYPE & SCREEN ordered. EDMS EDMS 10:53 12/14 10:04 URINALYSIS ordered. EDMS EDMS Attachments: 09:01 [facility] Payment Agreement jp5 12/15 14:14 ECG/EKG gb Chart Complete MTDD
[2016-12-17] MEDS: WARFARIN SOD 3 MG TAB PO SCH (17:14)
[2016-12-17] MEDS ORDERED: DEXTROSE 50% 50 ML SYRINGE IV PRN (17:15)
[2016-12-17] MEDS ORDERED: GLUCAGON FOR INJ 1 MG VIAL (J1610) SC PRN (17:15)
[2016-12-17] MEDS ORDERED: GLUCOSE 4 GM CHEW TABLET PO PRN (17:15)
--- NOTE | 2016-12-17 18:01 | ECGEPIP ---
Stationary ECG Study [facility] Test Date: 2016-12-17 Pat Name: OMARI MCINTYRE JR Department: Room: [place] [address] Gender: M Advertising Dispatch Clerk: JOELLE : 1930 Requested By: ALBERTO Boudreaux Order Number: [id number] Reading MD: Addi García Measurements Intervals [place] Rate: 80 P: [place]: 0 QRS: 267 QRSD: 191 T: 91 QT: 505 QTc: 586 Interpretive Statements Difficult to define underlying atrial mechanism - atrial fibrillation versus sinus rhythm. Mostly paced ventricular rhythm at 80 bpm Two isolated spontaneous beats likely PVCs. Paced QRS complexes having and RBBB configuration consistent with biventricular pacing Tracing 12/14/16 showed a slower rate and consistent AV sequentially paced rhythm. Electronically Signed On 12-17-2016 18:01:06 EST by Addi García
[2016-12-17] MEDS: HEPARIN DRIP 25,000 UNITS in APPROPRIATE DILUENT 1 EA IV SCH (20:50)
[2016-12-18] MEDS: HEPARIN DRIP 25,000 UNITS in APPROPRIATE DILUENT 1 EA IV SCH (03:35)
[2016-12-18 06:00] VITALS: BP 124/63
[2016-12-18 06:17] LABS: INR 1.39
[2016-12-18 06:23] LABS: CALCIUM LEVEL 7.9 MG/DL (8.8-10.2); CREATININE FOR GFR 1.59 MG/DL (0.70-1.30); GLOMERULAR FILTRATION RATE 44.2 (>35); MAGNESIUM LEVEL 2.3 MG/DL (1.8-2.4); POTASSIUM SERUM 3.7 MEQ/L (3.5-5.1)
[2016-12-18 06:24] LABS: MEAN CORPUSCULAR HGB CONC 32.2 g/dl (32.0-36.5); MEAN CORPUSCULAR VOLUME 86.9 fl (80.0-96.0); PLATELET COUNT, AUTOMATED 186 k/mm3 (150-450); RED CELL DISTRIBUTION WIDTH 15.6 % (11.5-14.5); WHITE BLOOD COUNT 11.5 K/mm3 (4.0-10.0)
[2016-12-18 06:25] LABS: ADD MORPHOLOGY? YES
[2016-12-18 06:26] LABS: BASO % 0.4 % (0.0-1.0); EOS # 0.2 K/mm3 (0.0-0.50); EOS % 2.1 % (0.0-3.0); LARGE UNSTAINED CELL # 0.4 K/mm3 (0.0-0.4); LARGE UNSTAINED CELL % 3.2 % (0.0-4.0); LYMPH # 1.3 K/mm3 (1.5-4.5); LYMPH % 11.6 % (24.0-44.0); MONO # 0.9 K/mm3 (0.0-0.8); MONO % 8.1 % (0.0-5.0); NEUTROPHILS # 8.6 K/mm3 (1.8-7.7); NEUTROPHILS % 74.6 % (36.0-66.0)
[2016-12-18 06:42] LABS: HYPOCHROMASIA 2+
[2016-12-18 06:43] LABS: ANISOCYTOSIS 2+
[2016-12-18] MEDS: PANTOPRAZOLE 40MG TAB (PROTONIX) PO SCH (08:06)
[2016-12-18] MEDS: HumaLOG INSULIN (NovoLOG) PER UNIT SC SCH ×4 (08:06→21:00)
[2016-12-18] MEDS: DIGOXIN 0.125 MG TAB PO SCH (08:06)
[2016-12-18] MEDS: FUROSEMIDE 40 MG/4 ML VIAL (J1940) IV SCH (12:31)
[2016-12-18 14:00] VITALS: BP 122/57
--- NOTE | 2016-12-18 16:01 | IPN ---
DATE: 12/17/2016 SUBJECTIVE: Mr. Wolff was slightly short of breath this morning. No complaints of pain, chest pain. He did not sleep very well because he is having so many bowel movements. OBJECTIVE: VITAL SIGNS: Temperature 98.6, pulse 71, respiratory rate 18, blood pressure 118/57, 95% on room air. GENERAL: Awake, appropriately interactive. Pleasantly conversant. Clearly remembers me from previous encounters. Really wants a turkey sandwich. LUNGS: Breathing is symmetrical, rested. I to E ratio is 1:3. No wheezes, rales, or rhonchi. HEART: Regular rate and rhythm with metallic click. ABDOMEN: Soft, doughy, nontender. EXTREMITIES: No significant lower extremity edema. LABORATORY DATA: White count 10.8, hemoglobin 8.3, and platelets of 185. Sodium 149, potassium 3.4, BUN 12, creatinine 1.23. ASSESSMENT: An 86-year-old with acute blood loss anemia in the setting of coagulopathy related to Coumadin with mechanical aortic valve. PLAN: 1. Gastrointestinal (GI). The patient was thought to have an upper GI bleed. He has had an esophagogastroduodenoscopy (EGD) with no obvious bleeding source. The patient then went on to have a colonoscopy today. I did see the patient in the preoperative suite and on the floor. Discussed the case in person with Dr. Perry and the covering anesthesiologist. He was found to have a normal colon with diverticulosis. The patient has been advanced to a consistent carbohydrate diet and continued on a proton pump inhibitor (PPI). Heparin drip can be restarted. 2. The patient has acute blood loss anemia. This is still likely a GI source. We will continue with heparin bridging for now and I have restarted Coumadin for this evening. 3. The patient has chronic kidney disease and resolved acute renal failure. 4. The patient has hypernatremia and hypokalemia. We will repeat labs. This is likely worsened with his bowel prep. 5. The patient has coronary artery disease with history of myocardial infarction and ischemic cardiomyopathy. He appears somewhat fluid overloaded to me today. I did give intravenous (IV) Lasix. He is positive on his fluid status, not accounting for the multiple bowel movements. Will restart him on Lasix, spironolactone and angiotension-converting enzyme (KARL) inhibitor. 6. The patient has hypernatremia which should improve with access to fluids. 7. The patient has type 2 diabetes. 8. The patient has a mechanical aortic valve. 9. The patient has a history of atrial fibrillation and ventricular fibrillation with an automatic implantable cardioverter defibrillator (AICD). 10. The patient has mechanical deep venous thrombosis (DVT) prophylaxis.
[2016-12-18 16:20] LABS: INR 1.44
[2016-12-18] MEDS: WARFARIN SOD 3 MG TAB PO SCH (17:18)
[2016-12-18 22:00] VITALS: BP 125/61
[2016-12-19] MEDS: FUROSEMIDE 40 MG/4 ML VIAL (J1940) IV SCH ×2 (00:05→12:21)
[2016-12-19] MEDS: HEPARIN DRIP 25,000 UNITS in APPROPRIATE DILUENT 1 EA IV SCH (03:24)
[2016-12-19 06:00] VITALS: BP 125/67
[2016-12-19 06:03] LABS: INR 1.35
[2016-12-19 06:09] LABS: BASO % 0.4 % (0.0-1.0); EOS # 0.4 K/mm3 (0.0-0.50); EOS % 3.6 % (0.0-3.0); LARGE UNSTAINED CELL # 0.5 K/mm3 (0.0-0.4); LARGE UNSTAINED CELL % 4.4 % (0.0-4.0); LYMPH # 1.7 K/mm3 (1.5-4.5); LYMPH % 12.6 % (24.0-44.0); MEAN CORPUSCULAR HEMOGLOBIN 27.5 pg (27.0-33.0); MONO # 0.7 K/mm3 (0.0-0.8); MONO % 6.4 % (0.0-5.0); NEUTROPHILS # 7.4 K/mm3 (1.8-7.7); NEUTROPHILS % 72.6 % (36.0-66.0); PLATELET COUNT, AUTOMATED 177 k/mm3 (150-450); RED CELL DISTRIBUTION WIDTH 14.9 % (11.5-14.5); WHITE BLOOD COUNT 10.2 K/mm3 (4.0-10.0)
[2016-12-19 06:24] LABS: CALCIUM LEVEL 7.8 MG/DL (8.8-10.2); CREATININE FOR GFR 1.57 MG/DL (0.70-1.30); GLOMERULAR FILTRATION RATE 44.8 (>35); POTASSIUM SERUM 3.8 MEQ/L (3.5-5.1)
[2016-12-19] MEDS: PANTOPRAZOLE 40MG TAB (PROTONIX) PO SCH (08:43)
[2016-12-19] MEDS: HumaLOG INSULIN (NovoLOG) PER UNIT SC SCH ×4 (08:43→21:00)
[2016-12-19] MEDS: DIGOXIN 0.125 MG TAB PO SCH (08:45)
--- NOTE | 2016-12-19 08:45 | IPN ---
DATE OF SERVICE: 12/18/2016 Mr. Wolff is doing well today, tolerating diet, quite happy with the food in the hospital. No abdominal pain. No chest pain. No shortness of breath. Temperature 98.8, pulse 72, respiratory rate 17, blood pressure 124/63, 96% on room air. Intake and output (I and O) notable for a positive fluid balance of 265. No bowel movements noted. Weight 73.7 kg with a body mass index of 27. He is awake, appropriately interactive. Pleasantly conversant. Breathing is symmetrical, rested. I to E ratio is 1:3. No wheezes, rales, or rhonchi. No accessory muscle use. Speaking in complete sentences. Heart is distant sounding, normal S1, S2. Metallic click noted. Distal pulses at the radius 2+. Capillary refill is less than 2 seconds. Abdomen is soft, doughy, nontender with hyperactive bowel sounds. White cell count 11.5, hemoglobin 8.1, and platelets of 186. BUN 15, creatinine 1.59. INR is 1.39 with PTT of 87 on heparin drip. My assessment is as follows: This is an 86-year-old with acute blood loss anemia in the setting of coagulopathy related to Coumadin and in the setting of mechanical aortic valve. Plan is as follows: 1. The patient was initially thought to have an upper gastrointestinal (GI) bleed. He had an esophagogastroduodenoscopy (EGD), which showed no source of bleeding. Also had colonoscopy done on the , which showed no active source of bleeding. Pending therapeutic INR for his mechanical aortic valve. He did receive vitamin K due to Coumadin-induced coagulopathy at the beginning of this admission, so it may take some time for his INR to begin to trend upwards. 2. The patient had acute blood loss anemia. He has received a total of three units of packed red blood cells and one unit of fresh frozen plasma (FFP). Patient still likely has a GI source, which was just not visualized or had already healed by the time he had endoscopy. 3. The patient has chronic kidney disease and resolved acute renal failure. 4. The patient has had electrolyte abnormalities including hypernatremia and hypokalemia, which are resolving with resumption of his oral intake. 5. The patient has coronary artery disease with history of myocardial infarction and ischemic cardiomyopathy. He appeared somewhat fluid overloaded. At this point, I believe he is approaching euvolemia and could be placed back on his home medications. 6. The patient has type 2 diabetes. 7. The patient has a history of atrial fibrillation and ventricular fibrillation with an automatic implantable cardioverter defibrillator (AICD). 8. The patient has heparin drip for deep venous thrombosis (DVT) prophylaxis.
--- NOTE | 2016-12-19 13:06 | IPNPDOC ---
Subjective Date Seen The patient was seen on 12/19/16. Subjective Chief Complaint/HPI The patient is a 86-year-old male admitted with a reason for visit of Lower Gi Bleed. General: Denies: Chills, Fatigue, Malaise, Night Sweats, Normal Appetite, Other Symptoms, ROS Unobtainable Constitutional: Denies: Chills, Fatigue, Fever, Lethargy, Malaise, Night Sweats , Other, Weakness, Weight Loss Eyes: Denies: Conjunctivae inflammation, Eyelid inflammation, Other, Pain, Redness, Vision change ENT: Denies: Dysphagia, Ear Pain, Epistaxis, Head Aches, Other Symptoms, Post Nasal Drip, Sinus Congestion, Sore Throat Skin: Denies: Breakdown, Bruising, Dry, Itching, Jaundice, Lesions, Nail Changes, Other, Rash Pulmonary: Denies: Cough, Dyspnea, Other Symptoms, Pleuritic Chest Pain Cardiovascular: Denies: Chest Pain, Edema, Lt Headedness, Orthopnea, Other Symptoms, Palpitations, Paroxysmal Noc. Dyspnea Objective Physical Examination General Exam: Positive: Alert, Cooperative, No Acute Distress Eye Exam: Positive: Conjunctiva & lids normal, PERRLA ENT Exam: Positive: Atraumatic, Other ENT (edentulous), Negative: Mucous membr. moist/pink Neck Exam: Positive: Supple Chest Exam: Positive: Clear to auscultation, Normal air movement Heart Exam: Positive: Rate Normal, Regular Rhythm Abdomen Exam: Positive: Normal bowel sounds, Soft, Negative: Tenderness Extremity Exam: Negative: Edema Psych Exam: Positive: Oriented x 3 Assessment /Plan Problems (1) Anemia Status: Resolved Response to Treatment: Stable Discussed With: Catapult And Arresting Gear Officer, Patient Problem Specific Plan: Consult Specialist, Monitor Clinically, Repeat Labs Problem Text: upper/lower scope negative for acute bleed. recs as per GI ok to resume a/c h/h remain stable (2) CAD (coronary artery disease) Status: Acute Problem Text: s/p [place], s/p CABG (3) CHF (congestive heart failure) Status: Chronic Response to Treatment: Compensated Discussed With: Patient Problem Specific Plan: Monitor Clinically Problem Text: ischemic cardiomyopathy s/p bi-ventricular defibrillator resume home dosage lasix (4) S/P AVR Status: Chronic Discussed With: Patient Problem Specific Plan: Repeat Labs Problem Text: anticoagulated with coumadin, bridge with heparin drip. daily INR. (5) Afib Status: Chronic Discussed With: Patient Problem Text: rate controlled a/c with coumadin, currently bridged with heparin (6) COPD (chronic obstructive pulmonary disease) Status: Chronic (7) HTN (hypertension) Status: Chronic Problem Specific Plan: Monitor Clinically Problem Text: controlled with diet (8) Dyslipidemia Status: Chronic Problem Text: controlled with diet (9) Diabetes Status: Chronic Problem Text: insulin therapy, modified diet VS, I&O, 24H, Fishbone Vital Signs/I&O Vital Signs Date Time Temp Pulse Resp B/P Pulse Ox O2 Delivery O2 Flow Rate FiO2 12/19/16 09:00 Room Air 12/19/16 08:45 74 12/19/16 06:00 98.1 17 125/67 96 I&O- Last 24 Hours up to 6 AM 12/19/16 06:00 Intake Total 1830 ml Output Total 2025 ml Balance -195 ml Laboratory Data 24H LABS Laboratory Tests 2 12/18/16 15:55: Activated Partial Thromboplast Time 71.0H, Prothromb Time International Ratio 1.44, Prothrombin Time 17.6H 12/18/16 16:36: Bedside Glucose (Misc Panel) 132H 12/18/16 20:37: Bedside Glucose (Misc Panel) 155H 12/19/16 05:47: Activated Partial Thromboplast Time 78.1H, Prothromb Time International Ratio 1.35, Prothrombin Time 16.8H, Anion Gap 6L, White Blood Count 10.2H, Red Blood Count 3.03L, Hemoglobin 8.3L, Hematocrit 26.0L, Mean Corpuscular Volume 86.0, Mean Corpuscular Hemoglobin 27.5, Mean Corpuscular Hemoglobin Concent 32.0, Red Cell Distribution Width 14.9H, Platelet Count 177, Neutrophils (%) (Auto) 72.6H , Lymphocytes (%) (Auto) 12.6L, Monocytes (%) (Auto) 6.4H, Eosinophils (%) (Auto ) 3.6H, Basophils (%) (Auto) 0.4, Neutrophils # (Auto) 7.4, Lymphocytes # (Auto ) 1.7, Monocytes # (Auto) 0.7, Eosinophils # (Auto) 0.4, Basophils # (Auto) 0.0 , Blood Urea Nitrogen 17, Creatinine 1.57H, Sodium Level 141, Potassium Level 3.8, Chloride Level 104, Carbon Dioxide Level 31, Calcium Level 7.8L, Glomerular Filtration Rate 44.8, Large Unclassified Cells # 0.5H, Large Unclassified Cells % 4.4H, Magnesium Level 2.0 12/19/16 11:36: Bedside Glucose (Misc Panel) 226H CBC/BMP Laboratory Tests 12/19/16 05:47 Calcium Level 7.8 L, Red Blood Count 3.03 L, Mean Corpuscular Volume 86.0, Mean Corpuscular Hemoglobin 27.5, Mean Corpuscular Hemoglobin Concent 32.0, Red Cell Distribution Width 14.9 H, Neutrophils (%) (Auto) 72.6 H, Lymphocytes (%) (Auto ) 12.6 L, Monocytes (%) (Auto) 6.4 H, Eosinophils (%) (Auto) 3.6 H, Basophils (% ) (Auto) 0.4, Neutrophils # (Auto) 7.4, Lymphocytes # (Auto) 1.7, Monocytes # ( Auto) 0.7, Eosinophils # (Auto) 0.4, Basophils # (Auto) 0.0 Microbiology Microbiology 12/14/16 Blood Culture - Preliminary, Resulted No Growth after 72 hours. All specime... 12/16/16 Stool Occult Blood (BETTY) - Final, Complete ESTUARDO SO MD Dec 19, 2016 13:06
[2016-12-19 14:00] VITALS: BP 109/56
[2016-12-19] MEDS: WARFARIN SOD 3 MG TAB PO SCH (17:30)
[2016-12-19] MEDS: FUROSEMIDE 20 MG TAB PO SCH (21:56)
[2016-12-19 22:00] VITALS: BP 120/59
[2016-12-20] MEDS: HEPARIN DRIP 25,000 UNITS in APPROPRIATE DILUENT 1 EA IV SCH (02:45)
[2016-12-20 06:00] VITALS: BP 103/56
[2016-12-20 06:10] LABS: INR 1.32
[2016-12-20 06:11] LABS: BASO % 0.5 % (0.0-1.0); EOS # 0.4 K/mm3 (0.0-0.50); EOS % 3.9 % (0.0-3.0); LARGE UNSTAINED CELL # 0.4 K/mm3 (0.0-0.4); LARGE UNSTAINED CELL % 4.3 % (0.0-4.0); LYMPH # 1.7 K/mm3 (1.5-4.5); LYMPH % 13.6 % (24.0-44.0); MEAN CORPUSCULAR HEMOGLOBIN 27.3 pg (27.0-33.0); MEAN CORPUSCULAR HGB CONC 31.4 g/dl (32.0-36.5); MEAN CORPUSCULAR VOLUME 86.7 fl (80.0-96.0); MONO # 0.7 K/mm3 (0.0-0.8); MONO % 6.9 % (0.0-5.0); NEUTROPHILS # 6.8 K/mm3 (1.8-7.7); NEUTROPHILS % 70.7 % (36.0-66.0); PLATELET COUNT, AUTOMATED 181 k/mm3 (150-450); WHITE BLOOD COUNT 9.6 K/mm3 (4.0-10.0)
[2016-12-20 06:27] LABS: CREATININE FOR GFR 1.48 MG/DL (0.70-1.30); MAGNESIUM LEVEL 2.3 MG/DL (1.8-2.4); POTASSIUM SERUM 3.4 MEQ/L (3.5-5.1)
[2016-12-20] MEDS: FUROSEMIDE 20 MG TAB PO SCH ×2 (08:33→21:09)
[2016-12-20] MEDS: PANTOPRAZOLE 40MG TAB (PROTONIX) PO SCH (08:33)
[2016-12-20] MEDS: HumaLOG INSULIN (NovoLOG) PER UNIT SC SCH ×4 (08:33→21:00)
[2016-12-20] MEDS: DIGOXIN 0.125 MG TAB PO SCH (08:34)
--- NOTE | 2016-12-20 10:05 | IPNPDOC ---
Subjective Date Seen The patient was seen on 12/20/16. Subjective Chief Complaint/HPI The patient is a 86-year-old male admitted with a reason for visit of Lower Gi Bleed. General: Denies: Chills, Fatigue, Malaise, Night Sweats, Normal Appetite, Other Symptoms, ROS Unobtainable Constitutional: Denies: Chills, Fatigue, Fever, Lethargy, Malaise, Night Sweats , Other, Weakness, Weight Loss Eyes: Denies: Conjunctivae inflammation, Eyelid inflammation, Other, Pain, Redness, Vision change ENT: Denies: Dysphagia, Ear Pain, Epistaxis, Head Aches, Other Symptoms, Post Nasal Drip, Sinus Congestion, Sore Throat Skin: Denies: Breakdown, Bruising, Dry, Itching, Jaundice, Lesions, Nail Changes, Other, Rash Pulmonary: Denies: Cough, Dyspnea, Other Symptoms, Pleuritic Chest Pain Cardiovascular: Denies: Chest Pain, Edema, Lt Headedness, Orthopnea, Other Symptoms, Palpitations, Paroxysmal Noc. Dyspnea Gastrointestinal: Reports: Constipation, Denies: Abdominal Pain, Diarrhea, Hematochezia, Melena, Nausea, Other Symptoms, Vomiting Objective Physical Examination General Exam: Positive: Alert, Cooperative, No Acute Distress Eye Exam: Positive: Conjunctiva & lids normal, PERRLA ENT Exam: Positive: Atraumatic, Other ENT (edentulous), Negative: Mucous membr. moist/pink Neck Exam: Positive: Supple Chest Exam: Positive: Clear to auscultation, Normal air movement Heart Exam: Positive: Rate Normal, Regular Rhythm Abdomen Exam: Positive: Normal bowel sounds, Soft, Negative: Tenderness Extremity Exam: Negative: Edema Psych Exam: Positive: Oriented x 3 Assessment /Plan Problems (1) Anemia Status: Resolved Response to Treatment: Stable Discussed With: Head Athletic Trainer/Strength Coach, Patient Problem Specific Plan: Consult Specialist, Monitor Clinically, Repeat Labs Problem Text: upper/lower scope negative for acute bleed. recs as per GI ok to resume a/c h/h remain stable (2) CAD (coronary artery disease) Status: Acute Problem Text: s/p [place], s/p CABG (3) CHF (congestive heart failure) Status: Chronic Response to Treatment: Compensated Discussed With: Patient Problem Specific Plan: Monitor Clinically Problem Text: ischemic cardiomyopathy s/p bi-ventricular defibrillator resume home dosage lasix (4) S/P AVR Status: Chronic Discussed With: Patient Problem Specific Plan: Repeat Labs Problem Text: anticoagulated with coumadin, bridge with heparin drip. daily INR. increased coumadin dosage. (5) Afib Status: Chronic Discussed With: Patient Problem Text: rate controlled a/c with coumadin, currently bridged with heparin (6) COPD (chronic obstructive pulmonary disease) Status: Chronic (7) HTN (hypertension) Status: Chronic Problem Specific Plan: Monitor Clinically Problem Text: controlled with diet (8) Dyslipidemia Status: Chronic Problem Text: controlled with diet (9) Diabetes Status: Chronic Problem Text: insulin therapy, modified diet Plan/VTE VTE Prophylaxis Ordered?: Yes (heparin gtt/coumadin) Plan Diet: Continue Current Activity: Continue Current Diagnostics: Repeat Labs in AM Anticipated Discharge: Home With Services VS, [facility]&O, [facility] Vital Signs/I&O Vital Signs Date Time Temp Pulse Resp B/P Pulse Ox O2 Delivery O2 Flow Rate FiO2 12/20/16 08:34 70 12/20/16 06:00 97.4 19 103/56 96 Room Air I&O- Last 24 Hours up to 6 AM 12/20/16 06:00 Intake Total 1440 ml Output Total 1975 ml Balance -535 ml Laboratory Data 24H LABS Laboratory Tests 2 12/19/16 11:36: Bedside Glucose (Misc Panel) 226H 12/19/16 16:41: Bedside Glucose (Misc Panel) 152H 12/19/16 20:31: Bedside Glucose (Misc Panel) 195H 12/20/16 05:42: Activated Partial Thromboplast Time 70.3H, Anion Gap 8, White Blood Count 9.6, Red Blood Count 3.00L, Hemoglobin 8.2L, Hematocrit 26.0L, Mean Corpuscular Volume 86.7, Mean Corpuscular Hemoglobin 27.3, Mean Corpuscular Hemoglobin Concent 31.4L, Red Cell Distribution Width 15.0H, Platelet Count 181, Neutrophils (%) (Auto) 70.7H, Lymphocytes (%) (Auto) 13.6L, Monocytes (%) (Auto ) 6.9H, Eosinophils (%) (Auto) 3.9H, Basophils (%) (Auto) 0.5, Neutrophils # ( Auto) 6.8, Lymphocytes # (Auto) 1.7, Monocytes # (Auto) 0.7, Eosinophils # (Auto ) 0.4, Basophils # (Auto) 0.0, Blood Urea Nitrogen 20H, Creatinine 1.48H, Sodium Level 143, Potassium Level 3.4L, Chloride Level 105, Carbon Dioxide Level 30, Calcium Level 8.0L, Glomerular Filtration Rate 48.0, Large Unclassified Cells # 0.4, Large Unclassified Cells % 4.3H, Magnesium Level 2.3, Prothromb Time International Ratio 1.32, Prothrombin Time 16.5H CBC/BMP Laboratory Tests 12/20/16 05:42 Calcium Level 8.0 L, Red Blood Count 3.00 L, Mean Corpuscular Volume 86.7, Mean Corpuscular Hemoglobin 27.3, Mean Corpuscular Hemoglobin Concent 31.4 L, Red Cell Distribution Width 15.0 H, Neutrophils (%) (Auto) 70.7 H, Lymphocytes (%) ( Auto) 13.6 L, Monocytes (%) (Auto) 6.9 H, Eosinophils (%) (Auto) 3.9 H, Basophils (%) (Auto) 0.5, Neutrophils # (Auto) 6.8, Lymphocytes # (Auto) 1.7, Monocytes # (Auto) 0.7, Eosinophils # (Auto) 0.4, Basophils # (Auto) 0.0 Microbiology Microbiology 12/14/16 Blood Culture - Final, Complete NO GROWTH AFTER 5 DAYS 12/16/16 Stool Occult Blood (BETTY) - Final, Complete ESTUARDO SO MD Dec 20, 2016 10:05
[2016-12-20] MEDS ORDERED: POTASSIUM CHLORIDE 10 MEQ SR TABLET PO ONE (10:15)
[2016-12-20] MEDS: SENOKOT S TAB PO PRN ×2 (12:37→21:09)
[2016-12-20 14:00] VITALS: BP 115/56
[2016-12-20] MEDS ORDERED: ONDANSETRON 4 MG TAB (S0181) PO PRN (15:00)
[2016-12-20] MEDS: WARFARIN SOD 3 MG TAB PO SCH (17:38)
[2016-12-20 22:00] VITALS: BP 107/53
[2016-12-21] MEDS: HEPARIN DRIP 25,000 UNITS in APPROPRIATE DILUENT 1 EA IV SCH ×2 (02:03→20:30)
[2016-12-21 06:00] VITALS: BP 122/56
[2016-12-21 06:21] LABS: BASO % 0.6 % (0.0-1.0); EOS # 0.3 K/mm3 (0.0-0.50); EOS % 3.6 % (0.0-3.0); LARGE UNSTAINED CELL # 0.4 K/mm3 (0.0-0.4); LARGE UNSTAINED CELL % 3.9 % (0.0-4.0); LYMPH # 1.7 K/mm3 (1.5-4.5); LYMPH % 14.3 % (24.0-44.0); MEAN CORPUSCULAR HEMOGLOBIN 27.3 pg (27.0-33.0); MEAN CORPUSCULAR HGB CONC 31.2 g/dl (32.0-36.5); MEAN CORPUSCULAR VOLUME 87.3 fl (80.0-96.0); MONO # 0.6 K/mm3 (0.0-0.8); MONO % 6.9 % (0.0-5.0); NEUTROPHILS # 6.5 K/mm3 (1.8-7.7); NEUTROPHILS % 70.8 % (36.0-66.0); PLATELET COUNT, AUTOMATED 179 k/mm3 (150-450); WHITE BLOOD COUNT 9.2 K/mm3 (4.0-10.0)
[2016-12-21 06:27] LABS: INR 1.42
[2016-12-21 06:37] LABS: CALCIUM LEVEL 8.1 MG/DL (8.8-10.2); CREATININE FOR GFR 1.53 MG/DL (0.70-1.30); GLOMERULAR FILTRATION RATE 46.2 (>35); MAGNESIUM LEVEL 2.3 MG/DL (1.8-2.4)
[2016-12-21] MEDS: PANTOPRAZOLE 40MG TAB (PROTONIX) PO SCH (08:36)
[2016-12-21] MEDS: FUROSEMIDE 20 MG TAB PO SCH ×2 (08:36→20:30)
[2016-12-21] MEDS: DIGOXIN 0.125 MG TAB PO SCH (08:36)
[2016-12-21] MEDS: HumaLOG INSULIN (NovoLOG) PER UNIT SC SCH ×4 (08:37→21:00)
--- NOTE | 2016-12-21 10:52 | IPNPDOC ---
Subjective Date Seen The patient was seen on 12/21/16. Subjective Chief Complaint/HPI The patient is a 86-year-old male admitted with a reason for visit of Lower Gi Bleed. Events since last encounter Anxious to be discharged, no medical complaints. General: Denies: Chills, Fatigue, Malaise, Night Sweats, Normal Appetite, Other Symptoms, ROS Unobtainable Constitutional: Denies: Chills, Fatigue, Fever, Lethargy, Malaise, Night Sweats , Other, Weakness, Weight Loss Eyes: Denies: Conjunctivae inflammation, Eyelid inflammation, Other, Pain, Redness, Vision change ENT: Denies: Dysphagia, Ear Pain, Epistaxis, Head Aches, Other Symptoms, Post Nasal Drip, Sinus Congestion, Sore Throat Skin: Denies: Breakdown, Bruising, Dry, Itching, Jaundice, Lesions, Nail Changes, Other, Rash Pulmonary: Denies: Cough, Dyspnea, Other Symptoms, Pleuritic Chest Pain Cardiovascular: Denies: Chest Pain, Edema, Lt Headedness, Orthopnea, Other Symptoms, Palpitations, Paroxysmal Noc. Dyspnea Gastrointestinal: Denies: Abdominal Pain, Constipation, Diarrhea, Hematochezia , Melena, Nausea, Other Symptoms, Vomiting Objective Physical Examination General Exam: Positive: Alert, Cooperative, No Acute Distress Eye Exam: Positive: Conjunctiva & lids normal, PERRLA ENT Exam: Positive: Atraumatic, Other ENT (edentulous), Negative: Mucous membr. moist/pink Neck Exam: Positive: Supple Chest Exam: Positive: Clear to auscultation, Normal air movement Heart Exam: Positive: Rate Normal, Regular Rhythm Abdomen Exam: Positive: Normal bowel sounds, Soft, Negative: Tenderness Extremity Exam: Negative: Edema Psych Exam: Positive: Oriented x 3 Assessment /Plan Problems (1) Anemia Status: Resolved Response to Treatment: Stable Discussed With: Ceramics Machine Operator, Patient Problem Specific Plan: Consult Specialist, Monitor Clinically, Repeat Labs Problem Text: upper/lower scope negative for acute bleed. recs as per GI ok to resume a/c h/h remain stable (2) CAD (coronary artery disease) Status: Acute Problem Text: s/p [place], s/p CABG (3) CHF (congestive heart failure) Status: Chronic Response to Treatment: Compensated Discussed With: Patient Problem Specific Plan: Monitor Clinically Problem Text: ischemic cardiomyopathy s/p bi-ventricular defibrillator resume home dosage lasix (4) S/P AVR Status: Chronic Discussed With: Patient Problem Specific Plan: Repeat Labs Problem Text: anticoagulated with coumadin, bridge with heparin drip. daily INR. increased coumadin dosage yesterday, continue with 3mg daily for now. (5) Afib Status: Chronic Discussed With: Patient Problem Text: rate controlled a/c with coumadin, currently bridged with heparin (6) COPD (chronic obstructive pulmonary disease) Status: Chronic (7) HTN (hypertension) Status: Chronic Problem Specific Plan: Monitor Clinically Problem Text: controlled with diet (8) Dyslipidemia Status: Chronic Problem Text: controlled with diet (9) Diabetes Status: Chronic Problem Text: insulin therapy, modified diet Plan/VTE VTE Prophylaxis Ordered?: Yes (heparin gtt/coumadin) Plan Diet: Continue Current Activity: Continue Current Diagnostics: Repeat Labs in AM Anticipated Discharge: Home With Services Disposition Pending therapeutic INR for discharge. VS, I&O, 24H, Fishbone Vital Signs/I&O Vital Signs Date Time Temp Pulse Resp B/P Pulse Ox O2 Delivery O2 Flow Rate FiO2 12/21/16 08:36 66 12/21/16 06:00 96.9 17 122/56 95 Room Air I&O- Last 24 Hours up to 6 AM 12/21/16 06:00 Intake Total 890 ml Output Total 1150 ml Balance -260 ml Laboratory Data 24H LABS Laboratory Tests 2 12/20/16 11:38: Bedside Glucose (Misc Panel) 193H 12/20/16 16:37: Bedside Glucose (Misc Panel) 133H 12/20/16 20:33: Bedside Glucose (Misc Panel) 167H 12/21/16 05:55: Activated Partial Thromboplast Time 59.4H, Anion Gap 7L, White Blood Count 9.2, Red Blood Count 3.06L, Hemoglobin 8.3L, Hematocrit 26.7L, Mean Corpuscular Volume 87.3, Mean Corpuscular Hemoglobin 27.3, Mean Corpuscular Hemoglobin Concent 31.2L, Red Cell Distribution Width 15.0H, Platelet Count 179, Neutrophils (%) (Auto) 70.8H, Lymphocytes (%) (Auto) 14.3L, Monocytes (%) (Auto ) 6.9H, Eosinophils (%) (Auto) 3.6H, Basophils (%) (Auto) 0.6, Neutrophils # ( Auto) 6.5, Lymphocytes # (Auto) 1.7, Monocytes # (Auto) 0.6, Eosinophils # (Auto ) 0.3, Basophils # (Auto) 0.0, Blood Urea Nitrogen 21H, Creatinine 1.53H, Sodium Level 141, Potassium Level 4.0, Chloride Level 105, Carbon Dioxide Level 29, Calcium Level 8.1L, Glomerular Filtration Rate 46.2, Large Unclassified Cells # 0.4, Large Unclassified Cells % 3.9, Magnesium Level 2.3, Prothromb Time International Ratio 1.42, Prothrombin Time 17.5H CBC/BMP Laboratory Tests 12/21/16 05:55 Calcium Level 8.1 L, Red Blood Count 3.06 L, Mean Corpuscular Volume 87.3, Mean Corpuscular Hemoglobin 27.3, Mean Corpuscular Hemoglobin Concent 31.2 L, Red Cell Distribution Width 15.0 H, Neutrophils (%) (Auto) 70.8 H, Lymphocytes (%) ( Auto) 14.3 L, Monocytes (%) (Auto) 6.9 H, Eosinophils (%) (Auto) 3.6 H, Basophils (%) (Auto) 0.6, Neutrophils # (Auto) 6.5, Lymphocytes # (Auto) 1.7, Monocytes # (Auto) 0.6, Eosinophils # (Auto) 0.3, Basophils # (Auto) 0.0 Microbiology Microbiology 12/14/16 Blood Culture - Final, Complete NO GROWTH AFTER 5 DAYS 12/20/16 Stool Occult Blood (BETTY) - Final, Complete 12/16/16 Stool Occult Blood (BETTY) - Final, Complete ESTUARDO SO MD Dec 21, 2016 10:52
[2016-12-21 13:08] LABS: INR 1.5
[2016-12-21] MEDS: WARFARIN SOD 3 MG TAB PO SCH (17:24)
[2016-12-21 20:11] LABS: INR 1.58
[2016-12-21 22:00] VITALS: BP 108/59
[2016-12-22 06:00] VITALS: BP 115/54
[2016-12-22 08:28] LABS: INR 1.74
[2016-12-22] MEDS: DIGOXIN 0.125 MG TAB PO SCH (08:43)
[2016-12-22] MEDS: PANTOPRAZOLE 40MG TAB (PROTONIX) PO SCH (08:43)
[2016-12-22] MEDS: FUROSEMIDE 20 MG TAB PO SCH ×2 (08:44→20:26)
[2016-12-22] MEDS: HumaLOG INSULIN (NovoLOG) PER UNIT SC SCH ×4 (08:45→21:00)
--- NOTE | 2016-12-22 10:35 | IPNPDOC ---
Subjective Date Seen The patient was seen on 12/22/16. Subjective Chief Complaint/HPI The patient is a 86-year-old male admitted with a reason for visit of Lower Gi Bleed. General: Denies: Chills, Fatigue, Malaise, Night Sweats, Normal Appetite, Other Symptoms, ROS Unobtainable Constitutional: Denies: Chills, Fatigue, Fever, Lethargy, Malaise, Night Sweats , Other, Weakness, Weight Loss Eyes: Denies: Conjunctivae inflammation, Eyelid inflammation, Other, Pain, Redness, Vision change ENT: Denies: Dysphagia, Ear Pain, Epistaxis, Head Aches, Other Symptoms, Post Nasal Drip, Sinus Congestion, Sore Throat Skin: Denies: Breakdown, Bruising, Dry, Itching, Jaundice, Lesions, Nail Changes, Other, Rash Pulmonary: Denies: Cough, Dyspnea, Other Symptoms, Pleuritic Chest Pain Cardiovascular: Denies: Chest Pain, Edema, Lt Headedness, Orthopnea, Other Symptoms, Palpitations, Paroxysmal Noc. Dyspnea Gastrointestinal: Denies: Abdominal Pain, Constipation, Diarrhea, Hematochezia , Melena, Nausea, Other Symptoms, Vomiting Objective Physical Examination General Exam: Positive: Alert, Cooperative, No Acute Distress Eye Exam: Positive: Conjunctiva & lids normal, PERRLA ENT Exam: Positive: Atraumatic, Other ENT (edentulous), Negative: Mucous membr. moist/pink Neck Exam: Positive: Supple Chest Exam: Positive: Clear to auscultation, Normal air movement Heart Exam: Positive: Rate Normal, Regular Rhythm Abdomen Exam: Positive: Normal bowel sounds, Soft, Negative: Tenderness Extremity Exam: Negative: Edema Psych Exam: Positive: Oriented x 3 Assessment /Plan Problems (1) Anemia Status: Resolved Response to Treatment: Stable Discussed With: Senior Customer Service Representative, Patient Problem Specific Plan: Consult Specialist, Monitor Clinically, Repeat Labs Problem Text: upper/lower scope negative for acute bleed. recs as per GI ok to resume a/c h/h remain stable (2) CAD (coronary artery disease) Status: Acute Problem Text: s/p [place], s/p CABG (3) CHF (congestive heart failure) Status: Chronic Response to Treatment: Compensated Discussed With: Patient Problem Specific Plan: Monitor Clinically Problem Text: ischemic cardiomyopathy s/p bi-ventricular defibrillator resume home dosage lasix (4) S/P AVR Status: Chronic Discussed With: Patient Problem Specific Plan: Repeat Labs Problem Text: anticoagulated with coumadin, bridge with heparin drip. daily INR. increased coumadin dosage, continue with 3mg daily for now. Will administer 5mg today only. (5) Afib Status: Chronic Discussed With: Patient Problem Text: rate controlled a/c with coumadin, currently bridged with heparin (6) COPD (chronic obstructive pulmonary disease) Status: Chronic (7) HTN (hypertension) Status: Chronic Problem Specific Plan: Monitor Clinically Problem Text: controlled with diet (8) Dyslipidemia Status: Chronic Problem Text: controlled with diet (9) Diabetes Status: Chronic Problem Text: insulin therapy, modified diet Plan/VTE VTE Prophylaxis Ordered?: Yes (heparin gtt/coumadin) Plan Diet: Continue Current Activity: Continue Current Diagnostics: Repeat Labs in AM Anticipated Discharge: Home With Services VS, I&O, 24H, [facility] Vital Signs/I&O Vital Signs Date Time Temp Pulse Resp B/P Pulse Ox O2 Delivery O2 Flow Rate FiO2 12/22/16 08:43 68 12/22/16 06:00 97.1 16 115/54 96 Room Air I&O- Last 24 Hours up to 6 AM 12/22/16 05:59 Intake Total 2653 ml Output Total 1750 ml Balance 903 ml Laboratory Data 24H LABS Laboratory Tests 2 12/21/16 11:53: Bedside Glucose (Misc Panel) 134H 12/21/16 12:47: Activated Partial Thromboplast Time 50.1H, Prothromb Time International Ratio 1.50, Prothrombin Time 18.2H 12/21/16 16:46: Bedside Glucose (Misc Panel) 138H 12/21/16 19:33: Activated Partial Thromboplast Time 71.1H, Prothromb Time International Ratio 1.58, Prothrombin Time 19.0H 12/21/16 20:50: Bedside Glucose (Misc Panel) 160H 12/22/16 02:22: Activated Partial Thromboplast Time 104.8H 12/22/16 07:38: Activated Partial Thromboplast Time 91.0H, Prothromb Time International Ratio 1.74, Prothrombin Time 20.4H Microbiology Microbiology 12/14/16 Blood Culture - Final, Complete NO GROWTH AFTER 5 DAYS 12/21/16 Stool Occult Blood (BETTY) - Final, Complete 12/20/16 Stool Occult Blood (BETTY) - Final, Complete 12/16/16 Stool Occult Blood (BETTY) - Final, Complete ESTUARDO SO MD Dec 22, 2016 10:35
[2016-12-22 14:00] VITALS: BP 105/68
[2016-12-22 14:27] LABS: INR 1.81
[2016-12-22] MEDS ORDERED: WARFARIN SOD 2 MG TAB PO ONE (17:00)
[2016-12-22] MEDS: WARFARIN SOD 3 MG TAB PO SCH (17:22)
[2016-12-22] MEDS: HEPARIN DRIP 25,000 UNITS in APPROPRIATE DILUENT 1 EA IV SCH (18:30)
[2016-12-22 21:22] LABS: INR 1.9
[2016-12-22 22:00] VITALS: BP 119/56
[2016-12-23 05:55] LABS: INR 2.16
[2016-12-23 06:00] VITALS: BP 106/50
--- NOTE | 2016-12-23 07:47 | IPNPDOC ---
Subjective Date Seen The patient was seen on 12/23/16. Subjective Chief Complaint/HPI The patient is a 86-year-old male admitted with a reason for visit of Lower Gi Bleed. Events since last encounter Grumpy but generally in good spirits. Very conversational. No medical complaints. Anxious to return home. General: Denies: Chills, Fatigue, Malaise, Night Sweats, Normal Appetite, Other Symptoms, ROS Unobtainable Constitutional: Denies: Chills, Fatigue, Fever, Lethargy, Malaise, Night Sweats , Other, Weakness, Weight Loss Eyes: Denies: Conjunctivae inflammation, Eyelid inflammation, Other, Pain, Redness, Vision change ENT: Denies: Dysphagia, Ear Pain, Epistaxis, Head Aches, Other Symptoms, Post Nasal Drip, Sinus Congestion, Sore Throat Skin: Denies: Breakdown, Bruising, Dry, Itching, Jaundice, Lesions, Nail Changes, Other, Rash Pulmonary: Denies: Cough, Dyspnea, Other Symptoms, Pleuritic Chest Pain Cardiovascular: Denies: Chest Pain, Edema, Lt Headedness, Orthopnea, Other Symptoms, Palpitations, Paroxysmal Noc. Dyspnea Gastrointestinal: Denies: Abdominal Pain, Constipation, Diarrhea, Hematochezia , Melena, Nausea, Other Symptoms, Vomiting Genitourinary: Denies: Dysuria, Frequency, Hematuria, Incontinence, Other Symptoms, Retention Hematologic: Denies: Bleeding Excessively, Bruising, Enlarged Lymph Nodes, Other Hematologic, Petecchia, Purpura Objective Physical Examination General Exam: Positive: Alert, Cooperative, No Acute Distress Eye Exam: Positive: Conjunctiva & lids normal, PERRLA ENT Exam: Positive: Atraumatic, Other ENT (edentulous), Negative: Mucous membr. moist/pink Neck Exam: Positive: Supple Chest Exam: Positive: Clear to auscultation, Normal air movement Heart Exam: Positive: Rate Normal, Regular Rhythm Abdomen Exam: Positive: Normal bowel sounds, Soft, Negative: Tenderness Extremity Exam: Negative: Edema Psych Exam: Positive: Oriented x 3 Assessment /Plan Problems (1) S/P AVR Status: Chronic Discussed With: Patient Problem Specific Plan: Repeat Labs Problem Text: anticoagulated with coumadin, bridged with heparin drip. daily INR. Target 2.5. increased coumadin dosage x1 yesterday to 5mg. Continue with 3mg daily for now. Approaching therapeutic range. Anticipating discharge in 48- 72 hours. (2) Anemia Status: Resolved Response to Treatment: Stable Discussed With: Communications Field Technician, Patient Problem Specific Plan: Consult Specialist, Monitor Clinically, Repeat Labs Problem Text: upper/lower scope negative for acute bleed. recs as per GI ok to resume a/c h/h remain stable (3) CAD (coronary artery disease) Status: Acute Problem Text: s/p PR, s/p CABG (4) CHF (congestive heart failure) Status: Chronic Response to Treatment: Compensated Discussed With: Patient Problem Specific Plan: Monitor Clinically Problem Text: ischemic cardiomyopathy s/p bi-ventricular defibrillator resume home dosage lasix (5) Afib Status: Chronic Discussed With: Patient Problem Text: rate controlled a/c with coumadin, currently bridged with heparin (6) COPD (chronic obstructive pulmonary disease) Status: Chronic (7) HTN (hypertension) Status: Chronic Problem Specific Plan: Monitor Clinically Problem Text: controlled with diet (8) Dyslipidemia Status: Chronic Problem Text: controlled with diet (9) Diabetes Status: Chronic Problem Text: insulin therapy, modified diet Plan/VTE VTE Prophylaxis Ordered?: Yes (heparin gtt/coumadin) Plan Diet: Continue Current Activity: Continue Current Diagnostics: Repeat Labs in AM Anticipated Discharge: Home With Services VS, I&O, 24H, [facility] Vital Signs/I&O Vital Signs Date Time Temp Pulse Resp B/P Pulse Ox O2 Delivery O2 Flow Rate FiO2 12/23/16 06:00 99.2 78 18 106/50 98 Room Air I&O- Last 24 Hours up to 6 AM 12/23/16 06:00 Intake Total 1346 ml Output Total 2050 ml Balance -704 ml Laboratory Data 24H LABS Laboratory Tests 2 12/22/16 11:37: Bedside Glucose (Misc Panel) 135H 12/22/16 13:46: Activated Partial Thromboplast Time 83.9H, Prothromb Time International Ratio 1.81, Prothrombin Time 21.1H 12/22/16 17:11: Bedside Glucose (Misc Panel) 155H 12/22/16 19:52: Bedside Glucose (Misc Panel) 126H 12/22/16 20:38: Activated Partial Thromboplast Time 69.0H, Prothromb Time International Ratio 1.90, Prothrombin Time 21.9H 12/23/16 05:09: Activated Partial Thromboplast Time 101.1H, Prothromb Time International Ratio 2.16, Prothrombin Time 24.2H 12/23/16 05:17: Bedside Glucose (Misc Panel) 145H CBC/BMP Laboratory Tests 12/23/16 05:09 Microbiology Microbiology 12/14/16 Blood Culture - Final, Complete NO GROWTH AFTER 5 DAYS 12/21/16 Stool Occult Blood (BETTY) - Final, Complete 12/20/16 Stool Occult Blood (BETTY) - Final, Complete 12/16/16 Stool Occult Blood (BETTY) - Final, Complete ESTUARDO SO MD Dec 23, 2016 07:47
[2016-12-23] MEDS: HumaLOG INSULIN (NovoLOG) PER UNIT SC SCH ×4 (08:17→20:29)
[2016-12-23 09:05] VITALS: BP 115/56
[2016-12-23] MEDS: FUROSEMIDE 20 MG TAB PO SCH ×2 (09:26→20:00)
[2016-12-23] MEDS: PANTOPRAZOLE 40MG TAB (PROTONIX) PO SCH (09:26)
[2016-12-23] MEDS: DIGOXIN 0.125 MG TAB PO SCH (09:27)
[2016-12-23 12:42] LABS: INR 2.08
[2016-12-23 14:30] VITALS: BP 113/53
[2016-12-23] MEDS: WARFARIN SOD 3 MG TAB PO SCH (17:49)
[2016-12-23] MEDS: HEPARIN DRIP 25,000 UNITS in APPROPRIATE DILUENT 1 EA IV SCH (19:54)
[2016-12-23 22:00] VITALS: BP 120/58
[2016-12-24 02:50] LABS: INR 2.59
[2016-12-24 06:00] VITALS: BP 109/56
[2016-12-24 06:14] LABS: INR 2.66
[2016-12-24] MEDS: HumaLOG INSULIN (NovoLOG) PER UNIT SC SCH ×4 (07:52→21:00)
[2016-12-24] MEDS: PANTOPRAZOLE 40MG TAB (PROTONIX) PO SCH (07:52)
[2016-12-24] MEDS: FUROSEMIDE 20 MG TAB PO SCH ×2 (07:52→19:44)
[2016-12-24] MEDS: DIGOXIN 0.125 MG TAB PO SCH (07:53)
--- NOTE | 2016-12-24 08:47 | IPNPDOC ---
Subjective Date Seen The patient was seen on 12/24/16. Subjective Chief Complaint/HPI The patient is a 86-year-old male admitted with a reason for visit of Lower Gi Bleed. General: Denies: Chills, Fatigue, Malaise, Night Sweats, Normal Appetite, Other Symptoms, ROS Unobtainable Constitutional: Denies: Chills, Fatigue, Fever, Lethargy, Malaise, Night Sweats , Other, Weakness, Weight Loss Eyes: Denies: Conjunctivae inflammation, Eyelid inflammation, Other, Pain, Redness, Vision change ENT: Denies: Dysphagia, Ear Pain, Epistaxis, Head Aches, Other Symptoms, Post Nasal Drip, Sinus Congestion, Sore Throat Skin: Denies: Breakdown, Bruising, Dry, Itching, Jaundice, Lesions, Nail Changes, Other, Rash Pulmonary: Denies: Cough, Dyspnea, Other Symptoms, Pleuritic Chest Pain Cardiovascular: Denies: Chest Pain, Edema, Lt Headedness, Orthopnea, Other Symptoms, Palpitations, Paroxysmal Noc. Dyspnea Gastrointestinal: Denies: Abdominal Pain, Constipation, Diarrhea, Hematochezia , Melena, Nausea, Other Symptoms, Vomiting Genitourinary: Denies: Dysuria, Frequency, Hematuria, Incontinence, Other Symptoms, Retention Hematologic: Denies: Bleeding Excessively, Bruising, Enlarged Lymph Nodes, Other Hematologic, Petecchia, Purpura Objective Physical Examination General Exam: Positive: Alert, Cooperative, No Acute Distress Eye Exam: Positive: Conjunctiva & lids normal, PERRLA ENT Exam: Positive: Atraumatic, Other ENT (edentulous), Negative: Mucous membr. moist/pink Neck Exam: Positive: Supple Chest Exam: Positive: Clear to auscultation, Normal air movement Heart Exam: Positive: Rate Normal, Regular Rhythm Abdomen Exam: Positive: Normal bowel sounds, Soft, Negative: Tenderness Extremity Exam: Negative: Edema Psych Exam: Positive: Oriented x 3 Assessment /Plan Problems (1) S/P AVR Status: Chronic Discussed With: Patient Problem Specific Plan: Repeat Labs Problem Text: anticoagulated with coumadin, bridged with heparin drip. INR therapeutic. Anticipating discharge tomorrow. (2) Anemia Status: Resolved Response to Treatment: Stable Discussed With: Senior Application Programmer, Patient Problem Specific Plan: Consult Specialist, Monitor Clinically, Repeat Labs Problem Text: upper/lower scope negative for acute bleed. recs as per GI ok to resume a/c h/h remain stable (3) CAD (coronary artery disease) Status: Acute Problem Text: s/p NE, s/p CABG (4) CHF (congestive heart failure) Status: Chronic Response to Treatment: Compensated Discussed With: Patient Problem Specific Plan: Monitor Clinically Problem Text: ischemic cardiomyopathy s/p bi-ventricular defibrillator resume home dosage lasix (5) Afib Status: Chronic Discussed With: Patient Problem Text: rate controlled INR therapeutic with coumadin (6) COPD (chronic obstructive pulmonary disease) Status: Chronic (7) HTN (hypertension) Status: Chronic Problem Specific Plan: Monitor Clinically Problem Text: controlled with diet (8) Dyslipidemia Status: Chronic Problem Text: controlled with diet (9) Diabetes Status: Chronic Problem Text: insulin therapy, modified diet Plan/VTE VTE Prophylaxis Ordered?: Yes (heparin gtt/coumadin) Plan Diet: Continue Current Activity: Continue Current Diagnostics: Repeat Labs in AM Anticipated Discharge: Home With Services Disposition Anticipating discharge tomorrow. VS, I&O, [facility] Vital Signs/I&O Vital Signs Date Time Temp Pulse Resp B/P Pulse Ox O2 Delivery O2 Flow Rate FiO2 12/24/16 07:53 72 12/24/16 06:00 96.9 18 109/56 96 Room Air I&O- Last 24 Hours up to 6 AM 12/24/16 06:00 Intake Total 1259.3 ml Output Total 1675 ml Balance -415.7 ml Laboratory Data 24H LABS Laboratory Tests 2 12/23/16 11:51: Bedside Glucose (Misc Panel) 133H 12/23/16 12:21: Activated Partial Thromboplast Time 68.3H, Prothromb Time International Ratio 2.08, Prothrombin Time 23.5H 12/23/16 16:46: Bedside Glucose (Misc Panel) 131H 12/23/16 18:09: Activated Partial Thromboplast Time 41.1H 12/23/16 20:14: Bedside Glucose (Misc Panel) 169H 12/24/16 00:39: Activated Partial Thromboplast Time 132.3*H 12/24/16 02:19: Activated Partial Thromboplast Time 69.1H, Prothromb Time International Ratio 2.59, Prothrombin Time 27.8H 12/24/16 05:52: Prothromb Time International Ratio 2.66, Prothrombin Time 28.4H 12/24/16 06:03: Bedside Glucose (Misc Panel) 134H CBC/BMP Laboratory Tests 12/24/16 05:52 Microbiology Microbiology 12/14/16 Blood Culture - Final, Complete NO GROWTH AFTER 5 DAYS 12/21/16 Stool Occult Blood (BETTY) - Final, Complete 12/20/16 Stool Occult Blood (BETTY) - Final, Complete 12/16/16 Stool Occult Blood (BETTY) - Final, Complete ESTUARDO SO MD Dec 24, 2016 08:47
[2016-12-24 14:00] VITALS: BP 112/59
[2016-12-24] MEDS: WARFARIN SOD 3 MG TAB PO SCH (17:29)
[2016-12-24 22:00] VITALS: BP 111/55
[2016-12-25 06:00] VITALS: BP 119/57
[2016-12-25 06:11] LABS: INR 3.29
[2016-12-25] MEDS: HumaLOG INSULIN (NovoLOG) PER UNIT SC SCH (07:55)
[2016-12-25] MEDS: PANTOPRAZOLE 40MG TAB (PROTONIX) PO SCH (07:55)
[2016-12-25] MEDS: FUROSEMIDE 20 MG TAB PO SCH (07:56)
[2016-12-25] MEDS: DIGOXIN 0.125 MG TAB PO SCH (07:57)
[2016-12-25] MEDS ORDERED: COUM2TAB10 PO (08:18)
[2016-12-25] MEDS ORDERED: LISI-542 PO (08:20)
--- NOTE | 2016-12-25 13:14 | DS.PDOC ---
Discharge Summary General Date of Admission Dec 14, 2016 at 09:55 Date of Discharge Dec 25, 2016 at 10:30 Specialist/Consultants Involve: ALBERTO JIMENEZ MD Specialist/Consultants Involve PCP - Dr. Packer in [place] Discharge Summary PROCEDURES PERFORMED DURING STAY: Colonoscopy, EGD COMPLICATIONS/CHIEF COMPLAINT: Lower Gi Bleed DISCHARGE DIAGNOSES: 1. GASTROINTESTINAL HEMORRHAGE. 2. Supratherapeutic INR SECONDARY DIAGNOSES: 2. CT/CAD status post CABG 3. ischemic cardiomyopathy 4. chronic systolic CHF status post biventricular defibrillator placement 5. history of A. fib 6. mechanical aortic valve replacement 7. COPD 8. HTN 9. hyperlipidemia 10. diabetes mellitus type 2 11. history of prior ventricular fibrillation HISTORY OF PRESENT ILLNESS/HOSPITAL COURSE: Patient is a 86-year old male presenting for one week history of melana and lethargy. He was found to be anemic with an supra-therapeutic INR. He was transfused 2 units of PRBC. His coagulopathy was addressed with vitamin K and FFP. He was started on a PPI drip with GI consultation. He did have a colonoscopy and upper endoscopy which were unremarkable. His anti-coagulation was restarted as per GI recs. Given his mechanical aortic valve he was bridged with a heparin drip until his INR was therapeutic. He was discharged in stable condition with instructions as indicated. DISCHARGE MEDICATIONS: Please see below. ALLERGIES: Please see below. PHYSICAL EXAMINATION ON DISCHARGE: VITAL SIGNS: Please see below. GENERAL: NAD, elderly HEENT: NC/AT, EOMI, PERRL NECK: supple CARDIOVASCULAR EXAMINATION: +S1S2, RRR RESPIRATORY EXAMINATION: CTA B/L ABDOMINAL EXAMINATION: soft, NT, +BS EXTREMITIES: no edema SKIN: no rashes NEUROLOGICAL EXAMINATION: no gross focal deficits PSYCHIATRIC EXAMINATION: AAOx3 DISCHARGE CONDITION: [Stable]. DISPOSITION: Discharge home ACTIVITY: As tolerated DIET: 2 gram sodium, carb consistent ITEMS TO FOLLOWUP ON OUTPATIENT: 1. Daily INR/hemoglobin/hematocrit pending follow up with PCP Dr. Srivastava DISCHARGE PLAN AND INSTRUCTIONS: 1. Follow up PCP Dr. Packer as scheduled 2. Medications as directed 3. Daily blood work as directed TIME SPENT ON DISCHARGE: Greater than 30 minutes. Vital Signs/I&Os Vital Signs Date Time Temp Pulse Resp B/P Pulse Ox O2 Delivery O2 Flow Rate FiO2 12/25/16 08:16 Room Air 12/25/16 07:57 70 12/25/16 06:00 98.7 20 119/57 99 I&O- Last 24 Hours up to 6 AM 12/25/16 06:00 Intake Total 1484 ml Output Total 1150 ml Balance 334 ml Laboratory Data Labs 24H Laboratory Tests 2 12/24/16 16:40: Bedside Glucose (Misc Panel) 137H 12/24/16 20:31: Bedside Glucose (Misc Panel) 174H 12/25/16 05:53: Bedside Glucose (Misc Panel) 134H 12/25/16 05:54: Prothromb Time International Ratio 3.29, Prothrombin Time 33.5H CBC/BMP Laboratory Tests 12/25/16 05:54 FSBS Laboratory Tests Test 12/24/16 16:40 12/24/16 20:31 12/25/16 05:53 Range/Units Bedside Glucose (Misc Panel) 137 174 134 83-110 MG/DL Microbiology Microbiology 12/24/16 Stool Occult Blood (BETTY) - Final, Complete 12/21/16 Stool Occult Blood (BETTY) - Final, Complete 12/20/16 Stool Occult Blood (BETTY) - Final, Complete 12/16/16 Stool Occult Blood (BETTY) - Final, Complete Medications Scheduled (Gas-X Extra Strength) 125 Mg Cap 125 MG PO DAILY (Reported) Aspirin (Aspirin 81) 81 Mg Tab 81 MG PO DAILY (Reported) Digoxin (Digoxin) 0.125 Mg Tab 0.125 MG PO DAILY (Reported) Furosemide (Furosemide) 20 Mg Tab 20 MG PO BID (Reported) Linagliptin Base (Tradjenta) 5 Mg Tab 5 MG PO QHS (Reported) Lisinopril (Lisinopril) 5 Mg Tab 5 MG PO DAILY Simvastatin (Simvastatin) 20 Mg Tab 20 MG PO QHS (Reported) Vitamin D (Drisdol) 50,000 Unit Cap 50,000 UNIT PO Q2WK (Reported) EVERY OTHER SUNDAY Warfarin Sod (Coumadin) 2 Mg Tab 2 MG PO DAILY@17 Scheduled PRN Nitroglycerin (Nitrostat) 0.4 Mg Subl 0.4 MG SL Q5MP PRN PRN CHEST PAIN ( Reported) Allergies Coded Allergies: No Known Allergies (Unverified , 06/16/13) ESTUARDO SO MD Dec 25, 2016 13:14
[2016-12-25] MEDS ORDERED: WARFARIN SOD 2 MG TAB PO SCH (17:00)
== END 2016-12-25 10:30 | disposition home or self-care (01) | DRG 813 ==
LOC: M ED 07:29 → M ED INP 09:55 → M PCU 12-15 14:39 → M MSPAV 12-17 20:28
PROVIDERS: ADMIT Hospitalist; ATTEND Internal Medicine
PROC: 30253N1 (ICD-10-PCS; 2016-12-14)
PROC: 30253K1 (ICD-10-PCS; 2016-12-14)
PROC: 0DJ08ZZ Inspection of Upper Intestinal Tract, Via Natural or Artificial Opening Endoscopic (ICD-10-PCS; principal; 2016-12-15 20:17)
PROC: 0DJD8ZZ Inspection of Lower Intestinal Tract, Via Natural or Artificial Opening Endoscopic (ICD-10-PCS; 2016-12-17)
DX: D68.32 Hemorrhagic disorder due to extrinsic circulating anticoagulants (principal); K57.31 Diverticulosis of large intestine without perforation or abscess with bleeding; I50.22 Chronic systolic (congestive) heart failure; I13.0 Hypertensive heart and chronic kidney disease with heart failure and stage 1 through stage 4 chronic kidney disease, or unspecified chronic kidney disease; D62 Acute posthemorrhagic anemia; N17.9 Acute kidney failure, unspecified; E87.0 Hyperosmolality and hypernatremia; I25.10 Atherosclerotic heart disease of native coronary artery without angina pectoris; I25.5 Ischemic cardiomyopathy; I48.2 Chronic atrial fibrillation; T45.515A Adverse effect of anticoagulants, initial encounter; F32.9 Major depressive disorder, single episode, unspecified; E87.6 Hypokalemia; K22.2 Esophageal obstruction; J44.9 Chronic obstructive pulmonary disease, unspecified; N18.9 Chronic kidney disease, unspecified; E78.5 Hyperlipidemia, unspecified; E11.9 Type 2 diabetes mellitus without complications; I25.2 Old myocardial infarction; Z95.2 Presence of prosthetic heart valve; Z95.810 Presence of automatic (implantable) cardiac defibrillator; Z87.891 Personal history of nicotine dependence; Z79.01 Long term (current) use of anticoagulants; Z79.82 Long term (current) use of aspirin; Z79.899 Other long term (current) drug therapy; Z95.1 Presence of aortocoronary bypass graft

== ENCOUNTER 2017-05-24 08:19 | Inpatient (IN) | payer MEDICARE ==
[~2017-05-24] VITALS: Ht 165.1 cm; Wt 65.7 kg
[~2017-05-24 08:19] MED LIST changes: +ASPI1TAB PO; +CAPT62TA PO; +COUM2TAB22 PO; +DIGO0.12 PO; +DRIS50002 PO; +FURO20TA2 PO; +LISI-542 PO; +SIMV20TA2 PO; +SPIR25TA2 PO; +TRAD5TAB PO; +WARF4TAB52 PO; +[UNRECOGNIZED DRUG - CODE] PO
[2017-05-24] MEDS ORDERED: ENTR1TAB PO (08:32)
[2017-05-24] MEDS ORDERED: CARV3.12 PO (08:32)
[2017-05-24] MEDS ORDERED: NS 500 ML IV ONE ×2 (08:45→09:45)
[2017-05-24 09:00] LABS: VENOUS BASE EXCESS -9.6 (-2.0-2.0); VENOUS O2 SATURATION 50.9 % (60.0-80.0); VENOUS PARTIAL PRESSURE CO2 31.1 mmHg (38.0-50.0); VENOUS PARTIAL PRESSURE O2 34.9 mmHg (30.0-50.0); VENOUS TOTAL CO2 16.4 MEQ/L (24.0-28.0)
[2017-05-24 09:07] LABS: ADD MORPHOLOGY? YES; BASO # 0.1 K/mm3 (0.0-0.2); BASO % 0.5 % (0.0-1.0); EOS # 0.1 K/mm3 (0.0-0.50); EOS % 0.3 % (0.0-3.0); LARGE UNSTAINED CELL # 0.6 K/mm3 (0.0-0.4); LARGE UNSTAINED CELL % 3.2 % (0.0-4.0); LYMPH # 1.9 K/mm3 (1.5-4.5); LYMPH % 10.4 % (24.0-44.0); MEAN CORPUSCULAR HEMOGLOBIN 20.5 pg (27.0-33.0); MEAN CORPUSCULAR HGB CONC 28.5 g/dl (32.0-36.5); MEAN CORPUSCULAR VOLUME 71.8 fl (80.0-96.0); MONO # 0.9 K/mm3 (0.0-0.8); MONO % 4.9 % (0.0-5.0); NEUTROPHILS # 14.5 K/mm3 (1.8-7.7); NEUTROPHILS % 80.6 % (36.0-66.0); PLATELET COUNT, AUTOMATED 237 k/mm3 (150-450); RED CELL DISTRIBUTION WIDTH 19.6 % (11.5-14.5); WHITE BLOOD COUNT 17.9 K/mm3 (4.0-10.0)
[2017-05-24 09:32] LABS: ALBUMIN 3.6 GM/DL (3.2-5.2); ALBUMIN/GLOBULIN RATIO 1.16 (1.00-1.93); BILIRUBIN,DIRECT 0.7 MG/DL (0.0-0.2); BILIRUBIN,TOTAL 1.5 MG/DL (0.2-1.0); CALCIUM LEVEL 8.6 MG/DL (8.8-10.2); CREATININE FOR GFR 5.07 MG/DL (0.70-1.30); GLOMERULAR FILTRATION RATE 11.6 (>35); MAGNESIUM LEVEL 2.9 MG/DL (1.8-2.4); TOTAL PROTEIN 6.7 GM/DL (6.4-8.2)
[2017-05-24 09:36] LABS: POTASSIUM SERUM 5.4 MEQ/L (3.5-5.1)
[2017-05-24 09:38] LABS: ANISOCYTOSIS 2+; HYPOCHROMASIA 2+; MICROCYTOSIS 2+
[2017-05-24 09:44] LABS: INR 5.64
[2017-05-24] MEDS ORDERED: cefTRIAXone SOD 2 GM in D5W MINI-BAG PLUS 50 ML IV ONE (10:00)
--- NOTE | 2017-05-24 10:33 | REP ---
PORTABLE CHEST: AP portable view of the chest is performed. There is mild cardiomegaly. There is no acute infiltrate or pulmonary edema. Mediastinal silhouette is unremarkable and unchanged since 12/17/2016. Left pacemaker is again noted as well as multiple sternal wires and mediastinal clips. IMPRESSION: Mild cardiomegaly. No acute infiltrate. Signed by Paramjit Israel MD 05/24/2017 05:54 P
[2017-05-24] MEDS ORDERED: WARF4TAB52 PO (11:17)
[2017-05-24] MEDS ORDERED: ALBU83IN INH (11:18)
--- NOTE | 2017-05-24 11:19 | REP ---
CT ABDOMEN/PELVIS WITHOUT CONTRAST: CT abdomen/pelvis performed without oral or IV contrast. Sagittal and coronal reconstruction images are performed. There is interstitial fibrotic change in each visualized lung base with small bilateral effusions. The liver is grossly unremarkable. Gallbladder is contracted containing gallstones. Spleen is grossly unremarkable. There is adrenal gland thickening. The pancreas is grossly unremarkable. There appears to be a cyst in the mid left kidney 1.2 cm in diameter. There is a hyperdense nodule in the lower pole of the right kidney which may represent a hyperdense cyst or solid nodule measuring 2 cm in diameter. This needs to be evaluated with ultrasound. There is no hydronephrosis. There is no renal or ureteral calculus. Urinary bladder is not well distended and not well evaluated. There is a diverticulum of the right side of the bladder. There is moderate atherosclerotic calcification of the abdominal aorta without aneurysm. There is no free air. There is mild diffuse abdominal and pelvic ascites. Extensive diverticulosis is seen of the sigmoid colon. Bowel is not optimally evaluated due to lack of IV and oral contrast. There is no definite pelvic mass. IMPRESSION: Small bilateral pleural effusions. Mild diffuse abdominal and pelvic ascites. There are gallstones in a contracted gallbladder. There is sigmoid diverticulosis. Evaluation of bowel is not optimal due to lack of oral and IV contrast. Left renal cyst. Right renal mass or hyperdense cyst. Recommend further evaluation with renal ultrasound. Signed by Paramjit Israel MD 05/24/2017 05:55 P
--- NOTE | 2017-05-24 11:26 | ECGEPIP ---
Stationary ECG Study [facility] - ED Test Date: 2017-05-24 Pat Name: OMARI MCINTYRE Department: Room: - Gender: M Utility Locator: juice : 1930 Requested By: Carolann Keene Order Number: [id number] Reading MD: Carolann Keene Measurements Intervals [place] Rate: 69 P: 102 LA: 129 QRS: -83 QRSD: 206 T: 32 QT: 490 QTc: 528 Interpretive Statements ELECTRONIC ATRIAL PACEMAKER ELECTRONIC VENTRICULAR PACEMAKER ABNORMAL RHYTHM ECG Electronically Signed On 05-24-2017 11:26:35 EDT by Carolann Keene
--- NOTE | 2017-05-24 11:27 | ECGEPIP ---
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
[2017-05-24] MEDS ORDERED: METOCLOPRAMIDE INJ 10MG/2ML VIAL (J2765) IV PRN (12:45)
[2017-05-24] MEDS ORDERED: NS 1,000 ML IV SCH (12:45)
[2017-05-24] MEDS ORDERED: ALBUTEROL SULFATE 2.5 MG/0.5 ML INH NEB SOLN NEB PRN (13:15)
[2017-05-24 13:57] VITALS: BP 90/62
[2017-05-24 16:00] VITALS: BP 110/50
--- NOTE | 2017-05-24 16:05 | REP ---
RENAL ULTRASOUND: Real-time sonographic evaluation of the kidneys performed. The kidneys are normal in size and echotexture, the right kidney measuring 10.1 x 4.0 x 5.0 cm and the left kidney 10.0 x 4.8 x 5.2 cm. There is no hydronephrosis. A cyst is seen in the lower pole of the right kidney, which appeared hyperdense on today's CT scan, measuring 2.2 x 1.9 x 1.9 cm. The cyst in the left mid kidney measures 1.3 cm in diameter. The urinary bladder is not well distended. There is a right-sided bladder diverticulum. There is mild free fluid in the abdomen. IMPRESSION: Cyst seen in each kidney with no evidence of solid renal mass. Signed by Paramjit Israel MD 05/24/2017 05:58 P
[2017-05-24] MEDS ORDERED: SODIUM BICARBONATE 75 MEQ in NS 0.45% 1,000 ML IV SCH (20:00)
[2017-05-24 20:37] VITALS: BP 90/68
[2017-05-24 20:47] VITALS: BP 92/60
[2017-05-24 20:48] LABS: ALBUMIN 3.2 GM/DL (3.2-5.2); ALBUMIN/GLOBULIN RATIO 1.14 (1.00-1.93); BILIRUBIN,TOTAL 0.7 MG/DL (0.2-1.0); CALCIUM LEVEL 7.8 MG/DL (8.8-10.2); CREATININE FOR GFR 4.28 MG/DL (0.70-1.30); GLOMERULAR FILTRATION RATE 14.1 (>35); POTASSIUM SERUM 4.4 MEQ/L (3.5-5.1)
[2017-05-25] VITALS (7 sets, daily range): BP systolic 89–109; BP diastolic 50–60
[2017-05-25 05:21] LABS: ALBUMIN 3.1 GM/DL (3.2-5.2); ALBUMIN/GLOBULIN RATIO 1.07 (1.00-1.93); BILIRUBIN,TOTAL 0.7 MG/DL (0.2-1.0); CALCIUM LEVEL 7.8 MG/DL (8.8-10.2); CREATININE FOR GFR 3.79 MG/DL (0.70-1.30); GLOMERULAR FILTRATION RATE 16.2 (>35); POTASSIUM SERUM 4.4 MEQ/L (3.5-5.1)
[2017-05-25 05:25] LABS: BASO # 0.1 K/mm3 (0.0-0.2); BASO % 0.6 % (0.0-1.0); EOS # 0.1 K/mm3 (0.0-0.50); EOS % 0.9 % (0.0-3.0); LARGE UNSTAINED CELL # 0.6 K/mm3 (0.0-0.4); LARGE UNSTAINED CELL % 4.4 % (0.0-4.0); LYMPH # 1.7 K/mm3 (1.5-4.5); LYMPH % 11.7 % (24.0-44.0); MEAN CORPUSCULAR HEMOGLOBIN 20.9 pg (27.0-33.0); MEAN CORPUSCULAR HGB CONC 29.3 g/dl (32.0-36.5); MONO # 0.8 K/mm3 (0.0-0.8); MONO % 5.4 % (0.0-5.0); NEUTROPHILS # 10.8 K/mm3 (1.8-7.7); NEUTROPHILS % 76.9 % (36.0-66.0); PLATELET COUNT, AUTOMATED 207 k/mm3 (150-450); RED CELL DISTRIBUTION WIDTH 19.7 % (11.5-14.5)
[2017-05-25] MEDS ORDERED: DIGOXIN 0.125 MG TAB PO SCH (09:00)
--- NOTE | 2017-05-25 09:06 | HPE ---
DATE OF ADMISSION: 05/24/2017 PRIMARY CARE PROVIDER: Dr. Packer in [place]. SHOW JUMPING INSTRUCTOR: Dr. García. CHIEF COMPLAINT: Lightheadedness, dizziness, dis-balance, gait instability for 2-1/2 weeks, loss of appetite for about 1-1/2 weeks. PAST MEDICAL HISTORY: Coronary artery disease status post myocardial infarction ([place]) and status post coronary artery bypass graft (CABG). Ischemic cardiomyopathy. Chronic systolic congestive heart failure. Automatic implantable cardioverter-defibrillator (AICD) in place. History of atrial fibrillation. 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 Hypertension. Hyperlipidemia. Diabetes, diet controlled. History of ventricular fibrillation. Chronic obstructive pulmonary disease (COPD). Chronic diastolic congestive heart failure. Diverticulosis. Schatzki's ring. HISTORY OF PRESENT ILLNESS: This is an 86-year-old male who is a resident of [place], has been feeling sick for the past 2-1/2 weeks with complaints of lightheadedness, dizziness, dis-balance, gait instability, and tendency to fall as soon as he gets up. He has started using a walker, still feeling sick and for the last 1-1/2 weeks, he has not been able to eat well and this morning, he developed some headache and was very lightheaded and dizzy so he came to the emergency room with his daughter for evaluation. In the ED on arrival, patient was found to be in ventricular tachycardia with a rate of 148 which was below the threshold for the firings set up for his AICD so Dr. Noriega was consulted from emergency room. He underwent internal cardioversion with termination of ventricular tachycardia and patient's next EKG showed all paced beats. On presentation, patient was also hypotensive. After correction of ventricular tachycardia, after his defibrillation and correction of his cardiac rhythm, his blood pressure improved though still remained soft. It stabilized at around 95/55. Patient symptomatically felt much better. He denied any further dizziness or lightheadedness. He was also noted to have acute kidney injury with creatinine of 5. His lactate was also elevated and his liver function tests were also abnormal. Patient was admitted to the hospitalist service for ventricular tachycardia, hypotension, acute kidney injury. PAST SURGICAL HISTORY: Coronary artery bypass graft 1994. Aortic valve replacement by mechanical valve in 1994. Biventricular automatic cardioverter defibrillator implantation in 2006. SOCIAL HISTORY: Patient is an ex-smoker, quit about 4 years ago. He used to drink but quit drinking at about the same time. There is no recreational drugs. FAMILY HISTORY: Nothing significant. ALLERGIES: No known allergies. HOME MEDICATIONS: - albuterol sulfate 2.5 mg nebulizer solution one every 4 hours as needed - aspirin 81 mg daily - carvedilol 3.125 mg by mouth twice daily - digoxin 0.125 mg by mouth daily - Lasix 20 mg by mouth daily - Gas-X extra strength 125 mg by mouth daily - Tradjenta 5 mg by mouth at bedtime - nitroglycerine 0.4 mg sublingual as needed chest pain - Entresto one tablet by mouth twice daily - simvastatin 20 mg at bedtime - vitamin D 50,000 units every 2 weeks - Coumadin 1.5 mg daily REVIEW OF SYSTEMS: All ten point review of systems are negative except those mentioned in history of present illness. PHYSICAL EXAMINATION: Vital signs: Temperature 97.4, pulse 65, blood pressure 95/51, pulse oximetry 100% on room air, respiratory rate 18. General: Patient awake, alert, oriented times three sitting up in bed in no acute distress. HEENT: Normocephalic, atraumatic. Moist mucous membranes. Anicteric eyes. Chest: Clear to auscultation. Cardiovascular: S1, S2 regular. There is a short systolic murmur and there is a metallic click heard. There is no rub or gallop. Abdomen: Soft, nontender, bowel sounds present. Extremities: No edema. LABORATORY DATA: WBC 17.9, hemoglobin 10.3, platelets 237. Sodium 136, potassium 5.4, chloride 101, bicarbonate 17, anion gap 18, BUN 84, creatinine 5, glucose 160, lactic acid 4.5, calcium 8.6, magnesium 2.9. Total bilirubin 1.5, AST 264, ALT 400. BNP 2890. Venous blood gas: PH 7.31, pCO2 31, pO2 34. INR 5.64. CT abdomen and pelvis: Small bilateral pleural effusions. Mild diffuse abdominal and pelvic ascites. There are gallstones in the contracted gallbladder. There is sigmoid diverticulosis. Left renal cyst. Right renal hyperdense cyst versus mass. ASSESSMENT AND PLAN: This is an 86-year-old male admitted for ventricular tachycardia with hypotension, acute renal failure. PLAN: Ventricular tachycardia. Patient has been defibrillated in the emergency room. At present, patient remains in paced rhythm. Patient has an AICD in place. Will monitor the patient in progressive care unit (PCU). Hypotension. This is related to ventricular tachycardia. After defibrillation, patient's blood pressure has improved. Will hold all antihypertensive medications. Will hold Entresto. Will continue with gentle hydration. Lactic acidosis, this is possible due to hypotension of unknown duration. Will continue with gentle hydration. Acute kidney injury. This is probably related to hypotension and poor oral intake in the background of being on diuretics and Entresto. Patient may have ischemic ATN as it is unknown low long the patient has been hypotensive, may have been going on for several days to weeks. Will continue with gentle hydration, monitor intake and output and daily weight. CT abdomen and pelvis does not show any obstruction. Will consult nephrology. Chronic systolic and diastolic congestive heart failure. At present, patient does not have any signs of fluid overload or decompensation. Will continue with gentle hydration with close monitoring. Once lactate improves, will discontinue IV fluid. Aortic valve replaced with mechanical valve. Patient at present has supratherapeutic INR. Will hold Coumadin. Once INR less than 3.5, will restart Coumadin. History of coronary artery disease, myocardial infarction and ischemic cardiomyopathy with history of coronary artery bypass graft. At present, patient does not have any symptoms. Will continue with aspirin. Will hold Coreg because of hypotension and statin because of abnormal electrolytes. Once hypotension improved and electrolytes improve, will restart. Hyperlipidemia, will hold simvastatin at present because of elevated transaminases. Elevated transaminases. This was possibly due to hypotension. Will continue to monitor. Right renal mass versus hyperdense cysts, complex. Will get renal ultrasound for better characterization. Deep venous thrombosis (DVT) prophylaxis. Patient is anticoagulated at present. Will use thromboembolic deterrent stockings (TEDS). History of atrial fibrillation. Patient at present has paced rhythm. Will continue with digoxin. Will hold beta dmitry at present because of recent hypotension. Chronic obstructive pulmonary disease (COPD), chronic bronchitis. Will continue with albuterol as needed. MTDD
[2017-05-25] MEDS: ASPIRIN 81 MG ENTERIC TAB PO SCH (09:21)
--- NOTE | 2017-05-25 11:39 | IPNPDOC ---
Subjective Date Seen The patient was seen on 05/25/17. Subjective Chief Complaint/HPI The patient is a 86-year-old male admitted with a reason for visit of Hypotension,Ventricular Tachycardia. Events since last encounter feeling much better, no light headedness or dizziness, no chest pain or palpitation , eating better, no nausea or vomiting or diarrhea, no abdominal pain Objective Physical Examination General Exam: Positive: Alert, Cooperative, No Acute Distress Eye Exam: Positive: PERRLA, Conjunctiva & lids normal, EOMI, Negative: Sclera icteric ENT Exam: Positive: Atraumatic, Mucous membr. moist/pink, Pharynx Normal Neck Exam: Positive: Supple, Negative: JVD, thyromegaly Chest Exam: Positive: Clear to auscultation, Normal air movement Heart Exam: Positive: Rate Normal, Regular Rhythm, Normal S1, Normal S2, Murmurs (systolic murmur present.), Negative: Rubs Telemetry: Positive: Other Telemetry: (paced rhythm) Abdomen Exam: Positive: Normal bowel sounds, Soft, Negative: Tenderness, Hepatospenomegaly Extremity Exam: Positive: Normal pulses, Negative: Clubbing, Cyanosis, Edema Skin Exam: Positive: Nl turgor and temperature, Negative: Rash, Breakdown Assessment /Plan Problems (1) Ventricular tachycardia Status: Resolved Problem Text: patient was defibrillated internally through his AICD in the ED by Dr lawrence since then in paced rhythm (2) Acute renal failure Status: Acute Response to Treatment: Improving Problem Text: due to hypotension from V tach nad prerenal from poor intake improving with ivf will continue on bicarb gtt nephrology following. will hold entresto (3) Supratherapeutic INR Status: Acute Problem Text: will hold coumadin (4) Transaminitis Status: Acute Response to Treatment: Improving Problem Text: due to hypotension (5) Afib Status: Chronic Problem Text: Has AICD now paced. (6) S/P AVR Status: Chronic (7) CHF (congestive heart failure) Status: Chronic Problem Text: systolic and diastolic chf not in fluid overload infact seems to be behind on fluids will hold diuretics Last EF around 30% from 2013 has AICD. (8) CAD (coronary artery disease) Status: Chronic Problem Text: 2 vessel disease s/p AMI and CABG in 1994 has ischemic cardiomyopathy no issues at this point. (9) COPD (chronic obstructive pulmonary disease) Status: Chronic (10) Diabetes Status: Chronic Problem Text: diet controlled (11) HTN (hypertension) Status: Chronic Problem Text: hypotensive on admission continues to have soft bps. will hold coreg and entresto. (12) Dyslipidemia Status: Chronic Plan/VTE VTE Prophylaxis Ordered?: Yes VS, I&O, 24H, Fishbone Vital Signs/I&O Vital Signs Date Time Temp Pulse Resp B/P (MAP) Pulse Ox O2 Delivery O2 Flow Rate FiO2 05/25/17 07:57 Room Air 05/25/17 07:10 97.3 73 20 103/56 (72) 95 05/25/17 04:15 0.5 I&O- Last 24 Hours up to 6 AM 05/25/17 06:00 Intake Total 1655 ml Output Total 260 ml Balance 1395 ml Laboratory Data 24H LABS Laboratory Tests 2 05/24/17 16:01: Lactic Acid Followup at 4 Hours 2.7*H 05/24/17 19:44: Anion Gap 13, Glomerular Filtration Rate 14.1L, Blood Urea Nitrogen 87H, Creatinine 4.28H, Sodium Level 137, Potassium Level 4.4, Chloride Level 103, Carbon Dioxide Level 21, Calcium Level 7.8L, Aspartate Amino Transf (AST/SGOT) 200H, Alanine Aminotransferase (ALT/SGPT) 345H, Alkaline Phosphatase 68, Total Bilirubin 0.7#, Total Protein 6.0L, Albumin 3.2, Albumin/Globulin Ratio 1.14 05/25/17 01:52: Urine Appearance HAZY, Urine Color YELLOW, Urine pH 5.0, Urine Specific [place] 1.015, Urine Protein NEGATIVE, Urine Glucose (UA) NEGATIVE, Urine Ketones NEGATIVE, Urine Urobilinogen 0.2, Urine Bilirubin NEGATIVE, Urine Leukocyte Esterase TRACEH, Urine Blood NEGATIVE, Urine Nitrite NEGATIVE, Urine WBC (Auto) 4H, Urine RBC (Auto) 1, Urine Hyaline Casts (Auto) 1, Urine Bacteria (Auto) NEGATIVE, Urine Squamous Epithelial Cells 2, Urine Sperm (Auto) 05/25/17 04:31: Anion Gap 14, Glomerular Filtration Rate 16.2L, Blood Urea Nitrogen 87H, Creatinine 3.79H, Sodium Level 141, Potassium Level 4.4, Chloride Level 107, Carbon Dioxide Level 20L, Calcium Level 7.8L, Aspartate Amino Transf (AST/SGOT) 137H, Alanine Aminotransferase (ALT/SGPT) 290H, Alkaline Phosphatase 63, Total Bilirubin 0.7, Total Protein 6.0L, Albumin 3.1L, Albumin/Globulin Ratio 1.07, White Blood Count 14.0H, Red Blood Count 4.59, Hemoglobin 9.6L, Hematocrit 32.6L , Mean Corpuscular Volume 71.0L, Mean Corpuscular Hemoglobin 20.9L, Mean Corpuscular Hemoglobin Concent 29.3L, Red Cell Distribution Width 19.7H, Platelet Count 207, Neutrophils (%) (Auto) 76.9H, Lymphocytes (%) (Auto) 11.7L, Monocytes (%) (Auto) 5.4H, Eosinophils (%) (Auto) 0.9, Basophils (%) (Auto) 0.6 , Neutrophils # (Auto) 10.8H, Lymphocytes # (Auto) 1.7, Monocytes # (Auto) 0.8, Eosinophils # (Auto) 0.1, Basophils # (Auto) 0.1, Large Unclassified Cells % 4.4H, Large Unclassified Cells # 0.6H CBC/BMP Laboratory Tests 05/24/17 19:44 Calcium Level 7.8 L, Aspartate Amino Transf (AST/SGOT) 200 H, Alanine Aminotransferase (ALT/SGPT) 345 H, Alkaline Phosphatase 68, Total Bilirubin 0.7 #, Total Protein 6.0 L, Albumin 3.2 05/25/17 04:31 Calcium Level 7.8 L, Aspartate Amino Transf (AST/SGOT) 137 H, Alanine Aminotransferase (ALT/SGPT) 290 H, Alkaline Phosphatase 63, Total Bilirubin 0.7 , Total Protein 6.0 L, Albumin 3.1 L, Red Blood Count 4.59, Mean Corpuscular Volume 71.0 L, Mean Corpuscular Hemoglobin 20.9 L, Mean Corpuscular Hemoglobin Concent 29.3 L, Red Cell Distribution Width 19.7 H, Neutrophils (%) (Auto) 76.9 H, Lymphocytes (%) (Auto) 11.7 L, Monocytes (%) (Auto) 5.4 H, Eosinophils (%) ( Auto) 0.9, Basophils (%) (Auto) 0.6, Neutrophils # (Auto) 10.8 H, Lymphocytes # (Auto) 1.7, Monocytes # (Auto) 0.8, Eosinophils # (Auto) 0.1, Basophils # (Auto ) 0.1 Microbiology Microbiology 05/24/17 Blood Culture - Preliminary, Resulted No growth after 24 hours . All specim... 05/24/17 Blood Culture - Preliminary, Resulted No growth after 24 hours . All specim... CECILIA GILL MD May 25, 2017 11:39
[2017-05-25 14:57] LABS: INR 4.28
[2017-05-25 15:00] LABS: ALBUMIN 3.3 GM/DL (3.2-5.2); ALBUMIN/GLOBULIN RATIO 1.14 (1.00-1.93); BILIRUBIN,TOTAL 0.7 MG/DL (0.2-1.0); CALCIUM LEVEL 7.9 MG/DL (8.8-10.2); CREATININE FOR GFR 3.37 MG/DL (0.70-1.30); GLOMERULAR FILTRATION RATE 18.6 (>35); POTASSIUM SERUM 4.2 MEQ/L (3.5-5.1); TOTAL PROTEIN 6.2 GM/DL (6.4-8.2)
--- NOTE | 2017-05-25 17:13 | CR ---
DATE OF CONSULTATION: 05/24/2017 CONSULTATION FOR: Celena Sin MD REASON FOR CONSULTATION: Acute renal failure and hyperkalemia. HISTORY OF PRESENT ILLNESS: Mr. Wolff is an 86-year-old gentleman who was brought to emergency room today by his daughter with a complaint of not feeling well for the last couple of weeks. He was very weak, short of breath, and tired. He was found to be in ventricular tachycardia and was hypotensive with blood pressure in 90s. His creatinine was found to be 5.07. He was admitted, and a nephrology consultation was requested for ARF. The patient is seen in progressive care unit this afternoon. PAST MEDICAL AND SURGICAL HISTORY 1. History of coronary artery disease with prior myocardial infarction [place]), status post coronary artery bypass graft. 2. History of ischemic cardiomyopathy. 3. History of chronic systolic congestive heart failure, status post biventricular defibrillator placement. 4. History of atrial fibrillation. 5. History of mechanical aortic valve replacement. 6. History of chronic obstructive pulmonary disease (COPD). 7. Hypertension. 8. Hyperlipidemia. 9. Type 2 diabetes. 10. Prior history of ventricular fibrillation. PAST SURGICAL HISTORY: Significant for: 1. Coronary artery bypass graft (CABG). 2. Mechanical aortic valve replacement. 3. Biventricular defibrillator. FAMILY HISTORY: There is no family history for end-stage renal disease. His brother was killed in a motor vehicle accident. PERSONAL AND SOCIAL HISTORY: The patient lives with his daughter. He quit smoking about 40 years ago. There is no history of alcohol or drug use. ALLERGIES: The patient has no known drug allergies. MEDICATIONS: His home medications include: - aspirin 81 mg daily - captopril 12.5 mg twice a day - carvedilol 3.125 mg twice a day - digoxin 125 mcg daily - Lasix 20 mg twice a day - Tradjenta 5 mg daily - simvastatin 20 mg daily - spironolactone 12.5 mg daily - vitamin D 50,000 units every 2 weeks - Coumadin 1 and 1.5 mg on alternate days. - He also uses nitroglycerin 0.4 mg as needed for chest pain. REVIEW OF SYSTEMS: The patient is quite hard of hearing. He denies any fever or chills. He has not been feeling good for the last couple of weeks. He reports worsening weakness and fatigue. He is hard of hearing. Denies any nosebleeds or sore throat. Cardiovascular system is significant for severe cardiomyopathy. He was noticed to be in ventricular tachycardia. He did have hypotension on arrival. Respiratory system is negative for cough, hemoptysis, abdominal pain, or pleuritic type of chest pain. Gastrointestinal (GI) system is significant for diarrhea for last few days. He denies any rectal bleeding or black-colored stools. Genitourinary () system is negative for dysuria or hematuria. Endocrine system is significant for type 2 diabetes. Hematological system is significant for chronic anticoagulation. Neurological system is negative for seizures or stroke. Psychosocial system is negative for depression or anxiety. Skin is negative for rash or ulcers. PHYSICAL EXAMINATION: Temperature 98.6 degrees Fahrenheit, heart rate 86 per minute, respiratory rate 18 per minute, blood pressure 90/62 mm of mercury, and oxygen saturation 96% on 2 liters oxygen. Head is atraumatic. Ears, nose, and throat are unremarkable. Pupils equal and reactive to light and sclerae are anicteric. Neck is supple, and jugular venous distention (JVD) is mildly elevated. Heart sounds are irregular in rhythm. There is no pericardial friction rub. Lungs have moderate bilateral air entry. There is no wheezing. Abdomen is soft, somewhat full, and nontender. Bowel sounds are present. Extremities have no cyanosis or clubbing. Skin has no rash or ulcers. Neurologically, he is awake and able to answer questions. Moves all his extremities. LABORATORY DATA: WBC count is 17.9, hemoglobin 10.3, hematocrit 36.2, platelets 237. His pH is 7.31, pCO2 of 31.1, and pO2 34.9 on a venous blood gas. His chemistry showed sodium 136, potassium 5.4, chloride 101, CO2 of 17, BUN 84, creatinine 5.07, glucose was 160, and calcium 8.6. Magnesium level 2.9. Troponin 0.43. A BNP level was 2890. Lactic acid initially 4.5, and a repeat lactic acid is 2.7. Digoxin level was 3.0. PROBLEMS: 1. Acute renal failure superimposed on chronic kidney disease. Most likely this is related to ventricular tachycardia and hypotension. The patient does not seem to be clinically dehydrated, though he does have history of diarrhea. He is being hydrated with normal saline at 60 mL per hour. I will change his IV fluid to sodium bicarbonate infusion and continue for at least tonight. 2. Metabolic acidosis. He does have mild metabolic acidosis. We will start sodium bicarbonate drip, including 75 mEq of sodium bicarbonate in each liter to run at 70 mL per hour. 3. Hyperkalemia. This is related to acute renal failure and metabolic acidosis. We will treat him with sodium bicarbonate drip and recheck his electrolytes. I will hold off on any use of kayexalate, as the patient already has diarrhea. 4. Lactic acidosis, most likely related to hypotension and hypoperfusion. His blood pressure seems to be improving. We will continue with IV fluid for now and continue to monitor closely. 5. Digoxin toxicity. Probably he took his digoxin this morning prior to blood draw. We will recheck his digoxin level tomorrow. I thank you for involving me in the care of Mr. Wolff. I will follow him along with you. SILVIA
[2017-05-26] VITALS: BP 91/51
[2017-05-26 04:00] VITALS: BP 117/66
[2017-05-26 05:15] LABS: ADD MORPHOLOGY? YES; BASO # 0.1 K/mm3 (0.0-0.2); BASO % 0.8 % (0.0-1.0); EOS # 0.2 K/mm3 (0.0-0.50); EOS % 1.4 % (0.0-3.0); LARGE UNSTAINED CELL # 0.4 K/mm3 (0.0-0.4); LARGE UNSTAINED CELL % 3.5 % (0.0-4.0); LYMPH % 12.6 % (24.0-44.0); MEAN CORPUSCULAR HEMOGLOBIN 20.6 pg (27.0-33.0); MEAN CORPUSCULAR HGB CONC 28.7 g/dl (32.0-36.5); MEAN CORPUSCULAR VOLUME 71.9 fl (80.0-96.0); MONO # 0.9 K/mm3 (0.0-0.8); MONO % 7.1 % (0.0-5.0); NEUTROPHILS # 9.3 K/mm3 (1.8-7.7); NEUTROPHILS % 74.6 % (36.0-66.0); PLATELET COUNT, AUTOMATED 211 k/mm3 (150-450); RED CELL DISTRIBUTION WIDTH 19.8 % (11.5-14.5); WHITE BLOOD COUNT 12.5 K/mm3 (4.0-10.0)
[2017-05-26 05:23] LABS: INR 3.5
[2017-05-26 05:32] LABS: ALBUMIN 3.4 GM/DL (3.2-5.2); ALBUMIN/GLOBULIN RATIO 1.06 (1.00-1.93); BILIRUBIN,TOTAL 0.7 MG/DL (0.2-1.0); CALCIUM LEVEL 8.2 MG/DL (8.8-10.2); CREATININE FOR GFR 2.74 MG/DL (0.70-1.30); GLOMERULAR FILTRATION RATE 23.6 (>35); POTASSIUM SERUM 4.2 MEQ/L (3.5-5.1); TOTAL PROTEIN 6.6 GM/DL (6.4-8.2)
--- NOTE | 2017-05-26 06:07 | IPN ---
DATE OF SERVICE: 05/25/2017 Mr. Wolff is seen this morning on his bedside. He is feeling better and reports that his diarrhea has improved. He ate well this morning and denies any nausea or vomiting. He is resting comfortably in his bed. He denies any dyspnea or chest pain. PHYSICAL EXAMINATION: Temperature 97.3 degrees Fahrenheit, heart rate 72 per minute and respiratory rate 20 per minute. Blood pressure 103/56 mmHg and oxygen saturation 95% on room air. Intake and output records from yesterday are probably inaccurate. His total intake was recorded as 1655 and output only 200 mL. His head is atraumatic. Neck veins are moderately distended. He has no oral thrush or ulcers. Pupils equal and reactive to light and sclera is anicteric. Heart sounds are irregular in rhythm. Lungs with diminished breath sounds at bases. Abdomen is soft and nontender and without palpable organomegaly. Bowel sounds are normal. Extremities have no cyanosis or clubbing. Neurologically, he seems to be at his baseline mentation without a focal neurological deficit. Today's labs show WBC count down to 14.0, hemoglobin 9.6 and hematocrit 32.6. Sodium 141 and potassium 4.4. CO2 is 20, BUN 87 and creatinine 3.79. PROBLEMS: 1. Acute renal failure superimposed on chronic kidney disease. Slight improvement in kidney function is noted since yesterday. He has been on intravenous (IV) fluid. His diarrhea has improved and his oral intake is adequate. He does have history of congestive heart failure and his elevated beta-natruretic peptide (BNP) level from yesterday is also of concern, so I will stop his IV fluid and monitor his kidney function in next 24 hours. 2. Hypotension. Blood pressure has also improved, so IV fluid is being stopped now. We will continue to monitor him closely. 3. Metabolic acidosis. No significant acidosis. His chemistry from this morning showed a bicarbonate level of 20 which is appropriate. We will continue to monitor and his sodium bicarbonate drip is being stopped. If he needs further sodium bicarbonate, then we can use oral sodium bicarbonate. 4. Abnormal transaminases. Most likely related to hypotension and they are improving.
[2017-05-26 06:26] LABS: ANISOCYTOSIS 2+; OVALOCYTES 1+; POIKILOCYTOSIS 1+
[2017-05-26 06:27] LABS: MICROCYTOSIS 2+; POLYCHROMASIA 1+
--- NOTE | 2017-05-26 06:57 | IPNPDOC ---
Subjective Date Seen The patient was seen on 05/26/17. Subjective Chief Complaint/HPI The patient is a 86-year-old male admitted with a reason for visit of Hypotension,Ventricular Tachycardia. Events since last encounter complains of SOB since last night , Not feeling as good as yesterday , has cough , feeling cold. says feels like unable to take in enough air Objective Physical Examination General Exam: Positive: Alert, Cooperative, No Acute Distress Eye Exam: Positive: PERRLA, Conjunctiva & lids normal, EOMI, Negative: Sclera icteric ENT Exam: Positive: Atraumatic, Mucous membr. moist/pink, Pharynx Normal Neck Exam: Positive: Supple, Negative: JVD, thyromegaly Chest Exam: Positive: Normal air movement, Rales Heart Exam: Positive: Rate Normal, Regular Rhythm, Normal S1, Normal S2, Murmurs (systolic murmur present.), Negative: Rubs Telemetry: Positive: Other Telemetry: (paced rhythm) Abdomen Exam: Positive: Normal bowel sounds, Soft, Negative: Tenderness, Hepatospenomegaly Extremity Exam: Positive: Normal pulses, Negative: Clubbing, Cyanosis, Edema Skin Exam: Positive: Nl turgor and temperature, Negative: Rash, Breakdown Assessment /Plan Problems (1) CHF (congestive heart failure) Status: Acute Problem Text: systolic and diastolic chf Now seems to be in acute exacerbation possibly from the ivf he was getting. will give lasix 60 mg 1v. Last EF around 30% from 2013 has AICD. (2) Cardiogenic shock Status: Resolved Problem Text: due to ventricular tachycardia . resolved after defibrillation (3) Ventricular tachycardia Status: Resolved Problem Text: patient was defibrillated internally through his AICD in the ED by Dr lawrence since then in paced rhythm (4) Acute renal failure Status: Acute Response to Treatment: Improving Problem Text: due to hypotension from V tach and prerenal from poor intake IVF stopped was getting fluid overloaded. nephrology following. will hold entresto (5) Supratherapeutic INR Status: Acute Problem Text: will hold coumadin (6) Transaminitis Status: Acute Response to Treatment: Improving Problem Text: due to hypotension (7) Afib Status: Chronic Problem Text: Has AICD now paced. (8) S/P AVR Status: Chronic (9) CAD (coronary artery disease) Status: Chronic Problem Text: 2 vessel disease s/p AMI and CABG in 1994 has ischemic cardiomyopathy no issues at this point. (10) COPD (chronic obstructive pulmonary disease) Status: Chronic (11) Diabetes Status: Chronic Problem Text: diet controlled (12) HTN (hypertension) Status: Chronic Problem Text: hypotensive on admission continues to have soft bps. will hold coreg and entresto. (13) Dyslipidemia Status: Chronic Plan/VTE VTE Prophylaxis Ordered?: Yes VS, I&O, 24H, Fishbone Vital Signs/I&O Vital Signs Date Time Temp Pulse Resp B/P (MAP) Pulse Ox O2 Delivery O2 Flow Rate FiO2 05/26/17 04:00 98.8 70 18 117/66 (83) 91 Room Air 05/25/17 04:15 0.5 I&O- Last 24 Hours up to 6 AM 05/26/17 06:00 Intake Total 1630 ml Output Total 1175 ml Balance 455 ml Laboratory Data 24H LABS Laboratory Tests 2 05/25/17 14:13: Prothrombin Time 43.4H, Prothromb Time International Ratio 4.28, Activated Partial Thromboplast Time 53.3H 05/25/17 14:14: Anion Gap 13, Glomerular Filtration Rate 18.6L, Blood Urea Nitrogen 86H, Creatinine 3.37H, Sodium Level 141, Potassium Level 4.2, Chloride Level 105, Carbon Dioxide Level 23, Calcium Level 7.9L, Aspartate Amino Transf (AST/SGOT) 108H, Alanine Aminotransferase (ALT/SGPT) 277H, Alkaline Phosphatase 67, Total Bilirubin 0.7, Total Protein 6.2L, Albumin 3.3, Albumin/Globulin Ratio 1.14 05/26/17 04:49: Prothrombin Time 36.8H, Prothromb Time International Ratio 3.50, Anion Gap 12, Glomerular Filtration Rate 23.6L, Blood Urea Nitrogen 77H, Creatinine 2.74H, Sodium Level 142, Potassium Level 4.2, Chloride Level 108H, Carbon Dioxide Level 22, Calcium Level 8.2L, Aspartate Amino Transf (AST/SGOT) 83H, Alanine Aminotransferase (ALT/SGPT) 238H, Alkaline Phosphatase 70, Total Bilirubin 0.7, Total Protein 6.6, Albumin 3.4, Albumin/Globulin Ratio 1.06, White Blood Count 12.5H, Red Blood Count 4.83, Hemoglobin 10.0L, Hematocrit 34.7L, Mean Corpuscular Volume 71.9L, Mean Corpuscular Hemoglobin 20.6L, Mean Corpuscular Hemoglobin Concent 28.7L, Red Cell Distribution Width 19.8H, Platelet Count 211 , Neutrophils (%) (Auto) 74.6H, Lymphocytes (%) (Auto) 12.6L, Monocytes (%) ( Auto) 7.1H, Eosinophils (%) (Auto) 1.4, Basophils (%) (Auto) 0.8, Neutrophils # (Auto) 9.3H, Lymphocytes # (Auto) 2.0, Monocytes # (Auto) 0.9H, Eosinophils # ( Auto) 0.2, Basophils # (Auto) 0.1, Large Unclassified Cells % 3.5, Large Unclassified Cells # 0.4, Platelet Estimate NORMAL, Polychromasia 1+, Poikilocytosis 1+, Anisocytosis 2+, Microcytosis 2+, Ovalocytes 1+, B-Type Natriuretic Peptide 1370H CBC/BMP Laboratory Tests 05/25/17 14:14 Calcium Level 7.9 L, Aspartate Amino Transf (AST/SGOT) 108 H, Alanine Aminotransferase (ALT/SGPT) 277 H, Alkaline Phosphatase 67, Total Bilirubin 0.7 , Total Protein 6.2 L, Albumin 3.3 05/26/17 04:49 Calcium Level 8.2 L, Aspartate Amino Transf (AST/SGOT) 83 H, Alanine Aminotransferase (ALT/SGPT) 238 H, Alkaline Phosphatase 70, Total Bilirubin 0.7 , Total Protein 6.6, Albumin 3.4, Red Blood Count 4.83, Mean Corpuscular Volume 71.9 L, Mean Corpuscular Hemoglobin 20.6 L, Mean Corpuscular Hemoglobin Concent 28.7 L, Red Cell Distribution Width 19.8 H, Neutrophils (%) (Auto) 74.6 H, Lymphocytes (%) (Auto) 12.6 L, Monocytes (%) (Auto) 7.1 H, Eosinophils (%) (Auto ) 1.4, Basophils (%) (Auto) 0.8, Neutrophils # (Auto) 9.3 H, Lymphocytes # (Auto ) 2.0, Monocytes # (Auto) 0.9 H, Eosinophils # (Auto) 0.2, Basophils # (Auto) 0.1 Microbiology Microbiology 05/24/17 Blood Culture - Preliminary, Resulted No growth after 24 hours . All specim... 05/24/17 Blood Culture - Preliminary, Resulted No growth after 24 hours . All specim... CECILIA GILL MD May 26, 2017 06:57
[2017-05-26 07:10] VITALS: BP 128/64
[2017-05-26] MEDS: ASPIRIN 81 MG ENTERIC TAB PO SCH (08:43)
[2017-05-26] MEDS ORDERED: FUROSEMIDE 100 MG/10 ML VIAL (J1940) IV ONE ×2 (09:15→15:00)
--- NOTE | 2017-05-26 10:43 | REP ---
REASON: Dyspnea. COMPARISON: Two days ago. Cardiomediastinal silhouette is unchanged. The technique utilized in obtaining the radiograph has magnified the cardiac silhouette and accentuated the interstitial markings. Pacemaker device is unchanged. There is a new patchy opacity in the right upper lobe. The lung espino are otherwise unchanged. IMPRESSION: Right upper lobe pneumonia. Signed by Brent Robles DO 05/26/2017 12:06 P
[2017-05-26 12:00] VITALS: BP 124/64
[2017-05-26 16:00] VITALS: BP 122/64
[2017-05-26] MEDS: WARFARIN SOD 3 MG TAB PO SCH (17:22)
[2017-05-26 19:56] VITALS: BP 123/71
[2017-05-27] VITALS (7 sets, daily range): BP systolic 101–123; BP diastolic 57–69
--- NOTE | 2017-05-27 04:37 | IPN ---
DATE OF SERVICE: 05/26/2017 Mr. Wolff is seen this morning on his bedside. He is complaining of shortness of breath and feeling chills. He denies any chest pain, nausea or vomiting. He has no fever or chills. His intravenous (IV) fluid was stopped yesterday. However, his oral intake had been unrestricted up until now. Intake and output records from yesterday showed total intake 1530 and output 760 mL. He weighed 68.4 kg which is a gain of about 2.45 kg since admission and 0.9 kg since yesterday. PHYSICAL EXAMINATION: Temperature 96.5 degrees Fahrenheit, heart rate 70 per minute and respiratory rate 18 per minute. Blood pressure 128/64 mmHg and oxygen saturation 92% on room air. Head is atraumatic. Neck veins are markedly distended. There is no oral thrush or ulcers. Pupils equal and reactive to light and sclera is anicteric. Heart sounds are irregular in rhythm. Lungs with bilateral fine crackles. Abdomen: Soft and nontender and without palpable organomegaly. Bowel sounds are normal. Extremities have no cyanosis or clubbing. Skin has no rash or ulcers. Neurologically, he seems to be awake, alert and oriented times three. Today's labs show WBC count 12.5, hemoglobin 10.0, and hematocrit 34.7. Platelets are 211. Sodium 142 and potassium 4.2. BUN 77 and creatinine 2.74. Calcium 8.2, protein 6.6 and albumin 3.4. A BNP level is 1370. Chest x-ray done this morning is reviewed independently. He has cardiomegaly and vascular congestion. There is also reported a small right upper lobe infiltrate. PROBLEMS: 1. Acute renal failure superimposed on chronic kidney disease. Kidney function is slightly improved since yesterday. The patient is now well-hydrated or over hydrated. His intravenous (IV) fluid was stopped yesterday. At this point, we will continue to monitor his kidney function on a daily basis. 2. Shortness of breath. Mostly it is related to congestive heart failure. He did receive one dose of Lasix and he has evidence for significant volume overload. We will give him another dose of 80 mg Lasix later this afternoon. His fluid restriction will be implemented with 1500 mL per day. 3. Pneumonia. Chest x-ray did show a small infiltrate right upper lobe. He is currently not on any antibiotic. He also has slightly elevated white blood cell counts, though no fever. I am not sure if this is all related to volume overload or if he has a true infective infiltrate. I think we will repeat the chest x-ray after diuresis. Defer any antibiotic intervention to the hospitalist service. I am not convinced that this is an infective infiltrate. 4. Anemia. His anemia is stable at this point and does not need any intervention.
[2017-05-27 05:40] LABS: ADD MORPHOLOGY? YES; BASO # 0.1 K/mm3 (0.0-0.2); BASO % 0.6 % (0.0-1.0); EOS # 0.1 K/mm3 (0.0-0.50); EOS % 0.5 % (0.0-3.0); LARGE UNSTAINED CELL # 0.4 K/mm3 (0.0-0.4); LARGE UNSTAINED CELL % 3.2 % (0.0-4.0); LYMPH # 1.5 K/mm3 (1.5-4.5); LYMPH % 8.4 % (24.0-44.0); MEAN CORPUSCULAR HEMOGLOBIN 20.8 pg (27.0-33.0); MEAN CORPUSCULAR HGB CONC 29.1 g/dl (32.0-36.5); MEAN CORPUSCULAR VOLUME 71.6 fl (80.0-96.0); MONO # 0.9 K/mm3 (0.0-0.8); MONO % 7.1 % (0.0-5.0); NEUTROPHILS # 10.5 K/mm3 (1.8-7.7); NEUTROPHILS % 80.2 % (36.0-66.0); PLATELET COUNT, AUTOMATED 212 k/mm3 (150-450); RED CELL DISTRIBUTION WIDTH 19.9 % (11.5-14.5); WHITE BLOOD COUNT 13.1 K/mm3 (4.0-10.0)
[2017-05-27 05:51] LABS: ALBUMIN 3.7 GM/DL (3.2-5.2); ALBUMIN/GLOBULIN RATIO 1.09 (1.00-1.93); BILIRUBIN,TOTAL 1.3 MG/DL (0.2-1.0); CALCIUM LEVEL 8.6 MG/DL (8.8-10.2); CREATININE FOR GFR 2.46 MG/DL (0.70-1.30); GLOMERULAR FILTRATION RATE 26.7 (>35); POTASSIUM SERUM 4.2 MEQ/L (3.5-5.1); TOTAL PROTEIN 7.1 GM/DL (6.4-8.2)
[2017-05-27 06:56] LABS: ANISOCYTOSIS 2+; HYPOCHROMASIA 1+
[2017-05-27 06:57] LABS: MICROCYTOSIS 2+
[2017-05-27 06:58] LABS: POLYCHROMASIA 1+
[2017-05-27] MEDS: ASPIRIN 81 MG ENTERIC TAB PO SCH (08:46)
--- NOTE | 2017-05-27 11:11 | IPNPDOC ---
Subjective Date Seen The patient was seen on 05/27/17. Subjective Chief Complaint/HPI The patient is a 86-year-old male admitted with a reason for visit of Hypotension,Ventricular Tachycardia. Events since last encounter sob better today, denied any chest pain , denied any cough or phlegm , no abdominal pain , no nausea or vomiting or diarrhea. Objective Physical Examination General Exam: Positive: Alert, Cooperative, No Acute Distress Eye Exam: Positive: PERRLA, Conjunctiva & lids normal, EOMI, Negative: Sclera icteric ENT Exam: Positive: Atraumatic, Mucous membr. moist/pink, Pharynx Normal Neck Exam: Positive: Supple, Negative: JVD, thyromegaly Chest Exam: Positive: Normal air movement, Rales Heart Exam: Positive: Rate Normal, Regular Rhythm, Normal S1, Normal S2, Murmurs (systolic murmur present.), Negative: Rubs Telemetry: Positive: Other Telemetry: (paced rhythm) Abdomen Exam: Positive: Normal bowel sounds, Soft, Negative: Tenderness, Hepatospenomegaly Extremity Exam: Positive: Normal pulses, Negative: Clubbing, Cyanosis, Edema Skin Exam: Positive: Nl turgor and temperature, Negative: Rash, Breakdown Assessment /Plan Problems (1) CHF (congestive heart failure) Status: Acute Response to Treatment: Improving Problem Text: systolic and diastolic chf Now seems to be in acute exacerbation possibly from the ivf he was getting. will continue iv lasix. Last EF around 30% from 2013 has AICD. (2) Cardiogenic shock Status: Resolved Problem Text: due to ventricular tachycardia . resolved after defibrillation (3) Ventricular tachycardia Status: Resolved Problem Text: patient was defibrillated internally through his AICD in the ED by Dr lawrence since then in paced rhythm (4) Acute renal failure Status: Acute Response to Treatment: Improving Problem Text: due to hypotension from V tach and prerenal from poor intake IVF stopped was getting fluid overloaded. nephrology following. will hold entresto (5) Supratherapeutic INR Status: Resolved Problem Text: will continue with coumadin (6) Transaminitis Status: Acute Response to Treatment: Improving Problem Text: due to hypotension (7) Afib Status: Chronic Problem Text: Has AICD now paced. (8) S/P AVR Status: Chronic Problem Text: continue coumadin (9) CAD (coronary artery disease) Status: Chronic Problem Text: 2 vessel disease s/p AMI and CABG in 1994 has ischemic cardiomyopathy no issues at this point. (10) COPD (chronic obstructive pulmonary disease) Status: Chronic (11) Diabetes Status: Chronic Problem Text: diet controlled (12) HTN (hypertension) Status: Chronic Problem Text: hypotensive on admission continues to have soft bps. will hold coreg and entresto. (13) Dyslipidemia Status: Chronic Plan/VTE VTE Prophylaxis Ordered?: Yes VS, I&O, 24H, Fishbone Vital Signs/I&O Vital Signs Date Time Temp Pulse Resp B/P (MAP) Pulse Ox O2 Delivery O2 Flow Rate FiO2 05/27/17 08:00 98.7 70 18 123/67 (85) 94 Room Air 05/25/17 04:15 0.5 I&O- Last 24 Hours up to 6 AM 05/27/17 06:00 Intake Total 555 ml Output Total 3525 ml Balance -2970 ml Laboratory Data 24H LABS Laboratory Tests 2 05/27/17 04:51: White Blood Count 13.1H, Red Blood Count 4.92, Hemoglobin 10.2L, Hematocrit 35.2L, Mean Corpuscular Volume 71.6L, Mean Corpuscular Hemoglobin 20.8L, Mean Corpuscular Hemoglobin Concent 29.1L, Red Cell Distribution Width 19.9H, Platelet Count 212, Neutrophils (%) (Auto) 80.2H, Lymphocytes (%) (Auto) 8.4L, Monocytes (%) (Auto) 7.1H, Eosinophils (%) (Auto) 0.5, Basophils (%) (Auto) 0.6 , Neutrophils # (Auto) 10.5H, Lymphocytes # (Auto) 1.5, Monocytes # (Auto) 0.9H , Eosinophils # (Auto) 0.1, Basophils # (Auto) 0.1, Large Unclassified Cells % 3.2, Large Unclassified Cells # 0.4, Platelet Estimate NORMAL, Polychromasia 1+ , Hypochromasia 1+, Anisocytosis 2+, Microcytosis 2+, Prothrombin Time 32.5H, Prothromb Time International Ratio 3.00, Anion Gap 13, Glomerular Filtration Rate 26.7L, Blood Urea Nitrogen 69H, Creatinine 2.46H, Sodium Level 144, Potassium Level 4.2, Chloride Level 108H, Carbon Dioxide Level 23, Calcium Level 8.6L, Aspartate Amino Transf (AST/SGOT) 73H, Alanine Aminotransferase (ALT /SGPT) 218H, Alkaline Phosphatase 71, Total Bilirubin 1.3#H, Total Protein 7.1, Albumin 3.7, B-Type Natriuretic Peptide 3310H, Albumin/Globulin Ratio 1.09 CBC/BMP Laboratory Tests 05/27/17 04:51 Red Blood Count 4.92, Mean Corpuscular Volume 71.6 L, Mean Corpuscular Hemoglobin 20.8 L, Mean Corpuscular Hemoglobin Concent 29.1 L, Red Cell Distribution Width 19.9 H, Neutrophils (%) (Auto) 80.2 H, Lymphocytes (%) (Auto ) 8.4 L, Monocytes (%) (Auto) 7.1 H, Eosinophils (%) (Auto) 0.5, Basophils (%) ( Auto) 0.6, Neutrophils # (Auto) 10.5 H, Lymphocytes # (Auto) 1.5, Monocytes # ( Auto) 0.9 H, Eosinophils # (Auto) 0.1, Basophils # (Auto) 0.1, Calcium Level 8.6 L, Aspartate Amino Transf (AST/SGOT) 73 H, Alanine Aminotransferase (ALT/ SGPT) 218 H, Alkaline Phosphatase 71, Total Bilirubin 1.3 #H, Total Protein 7.1 , Albumin 3.7 Microbiology Microbiology 05/24/17 Blood Culture - Preliminary, Resulted No Growth after 72 hours. All specime... 05/24/17 Blood Culture - Preliminary, Resulted No Growth after 72 hours. All specime... CECILIA GILL MD May 27, 2017 11:11
[2017-05-27] MEDS: FUROSEMIDE 100 MG/10 ML VIAL (J1940) IV SCH ×2 (13:07→17:01)
[2017-05-27] MEDS: WARFARIN SOD 3 MG TAB PO SCH (17:01)
--- NOTE | 2017-05-27 21:15 | IPN ---
DATE: 05/27/2017 Mr. Wolff is seen this morning on his bedside. His daughter is present in the room. The patient is feeling better today and reports that his dyspnea has improved. He denies any chest pain, nausea or vomiting. He ate only about 30% of his lunch. PHYSICAL EXAMINATION: Temperature is 96 degrees Fahrenheit, heart rate 76 per minute and respiratory rate 18 per minute. Blood pressure 114/69 mmHg and oxygen saturation 94% on room air. Intake and output records from yesterday showed total intake 535 and output 3150. His head is atraumatic. Neck veins are significantly improved and only mildly. There is no oral thrush or ulcers. Ears, nose and throat are unremarkable. Irregular rhythm. Lungs sound much clearer today only few rales audible at the bases. Abdomen is soft and nontender and without palpable organomegaly. Extremities have no cyanosis or clubbing. Skin has no rash or ulcers. Neurologically, he is seems to be at his baseline mentation. Today's labs show white blood count (WBC) 13.1, hemoglobin 10.2 and hematocrit 35.2. Sodium 144 and potassium of 4.2. BUN 69 and creatinine 2.46. A BNP level is reported at 3310. PROBLEMS: 1. Acute renal failure superimposed on chronic kidney disease. Kidney function is improving nicely. He is diuresing very well. The patient has no uremic symptoms and electrolytes are within normal range. 2. Congestive heart failure. He diuresed very well with IV Lasix yesterday. He has been put on 80 mg Lasix twice a day by hospitalist service due to elevated BNP level. At present, he is only mildly decompensated and we will need to monitor him closely. His renal function and electrolytes will be checked tomorrow. 3. Leukocytosis and possible infiltrate. His chest x-ray yesterday did show a right upper lobe infiltrate. I suspected that was related to pulmonary edema. We will repeat his chest x-ray as he has been adequately diuresed. He is afebrile but leukocytosis still persists.
[2017-05-28 05:48] LABS: INR 3.09
[2017-05-28 05:56] LABS: ADD MORPHOLOGY? YES; BASO # 0.1 K/mm3 (0.0-0.2); BASO % 0.7 % (0.0-1.0); EOS # 0.2 K/mm3 (0.0-0.50); LARGE UNSTAINED CELL # 0.4 K/mm3 (0.0-0.4); LARGE UNSTAINED CELL % 3.7 % (0.0-4.0); LYMPH % 13.6 % (24.0-44.0); MEAN CORPUSCULAR HEMOGLOBIN 21.1 pg (27.0-33.0); MEAN CORPUSCULAR HGB CONC 29.6 g/dl (32.0-36.5); MEAN CORPUSCULAR VOLUME 71.2 fl (80.0-96.0); MONO # 0.7 K/mm3 (0.0-0.8); MONO % 6.1 % (0.0-5.0); NEUTROPHILS # 8.5 K/mm3 (1.8-7.7); NEUTROPHILS % 73.9 % (36.0-66.0); PLATELET COUNT, AUTOMATED 193 k/mm3 (150-450); RED CELL DISTRIBUTION WIDTH 19.8 % (11.5-14.5); WHITE BLOOD COUNT 11.6 K/mm3 (4.0-10.0)
[2017-05-28 06:00] VITALS: BP 105/59
[2017-05-28 06:03] LABS: ALBUMIN 3.2 GM/DL (3.2-5.2); BILIRUBIN,TOTAL 1.3 MG/DL (0.2-1.0); CALCIUM LEVEL 8.6 MG/DL (8.8-10.2); CREATININE FOR GFR 2.27 MG/DL (0.70-1.30); GLOMERULAR FILTRATION RATE 29.3 (>35); POTASSIUM SERUM 3.5 MEQ/L (3.5-5.1); TOTAL PROTEIN 6.4 GM/DL (6.4-8.2)
[2017-05-28 06:58] LABS: ANISOCYTOSIS 2+; HYPOCHROMASIA 3+; MICROCYTOSIS 2+
--- NOTE | 2017-05-28 07:45 | REP ---
REASON: CHF with leukocytosis and pyrexia. Cardiomediastinal silhouette is unchanged. The technique utilized in obtaining the radiograph has magnified the cardiac silhouette and accentuated the interstitial markings. Pacemaker device is unchanged with AICD stable. Subtle patchy opacities are again seen in the right upper lobe status quo. There are no new findings. There is no change in the osseous structures. IMPRESSION: No significant change from the prior exam. Signed by Brent Robles DO 05/28/2017 10:58 A
[2017-05-28] MEDS: ASPIRIN 81 MG ENTERIC TAB PO SCH (09:07)
[2017-05-28] MEDS: POTASSIUM CHLORIDE 10 MEQ SR TABLET PO SCH (09:41)
--- NOTE | 2017-05-28 09:49 | IPNPDOC ---
Subjective Date Seen The patient was seen on 05/28/17. Subjective Chief Complaint/HPI The patient is a 86-year-old male admitted with a reason for visit of Hypotension,Ventricular Tachycardia. Events since last encounter feeling better, wants to go home , denies any SOb denies any chest pain , no abdominal pain , nausea or vomiting or diarrhea Objective Physical Examination General Exam: Positive: Alert, Cooperative, No Acute Distress Eye Exam: Positive: PERRLA, Conjunctiva & lids normal, EOMI, Negative: Sclera icteric ENT Exam: Positive: Atraumatic, Mucous membr. moist/pink, Pharynx Normal Neck Exam: Positive: Supple, Negative: JVD, thyromegaly Chest Exam: Positive: Normal air movement, Rales Heart Exam: Positive: Rate Normal, Regular Rhythm, Normal S1, Normal S2, Murmurs (systolic murmur present.), Negative: Rubs Telemetry: Positive: Other Telemetry: (paced rhythm) Abdomen Exam: Positive: Normal bowel sounds, Soft, Negative: Tenderness, Hepatospenomegaly Extremity Exam: Positive: Normal pulses, Negative: Clubbing, Cyanosis, Edema Skin Exam: Positive: Nl turgor and temperature, Negative: Rash, Breakdown Assessment /Plan Problems (1) CHF (congestive heart failure) Status: Acute Response to Treatment: Improving Problem Text: systolic and diastolic chf was is exacerbation now better will continue on po lasix. Last EF around 30% from 2013 has AICD. (2) Cardiogenic shock Status: Resolved Problem Text: due to ventricular tachycardia . resolved after defibrillation (3) Ventricular tachycardia Status: Resolved Problem Text: patient was defibrillated internally through his AICD in the ED by Dr lawrence since then in paced rhythm (4) Acute renal failure Status: Acute Response to Treatment: Improving Problem Text: due to hypotension from V tach and prerenal from poor intake IVF stopped was getting fluid overloaded. nephrology following. will hold entresto (5) Supratherapeutic INR Status: Resolved Problem Text: will continue with coumadin (6) Transaminitis Status: Acute Response to Treatment: Improving Problem Text: due to hypotension (7) Afib Status: Chronic Problem Text: Has AICD now paced. (8) S/P AVR Status: Chronic Problem Text: continue coumadin (9) CAD (coronary artery disease) Status: Chronic Problem Text: 2 vessel disease s/p AMI and CABG in 1994 has ischemic cardiomyopathy no issues at this point. (10) COPD (chronic obstructive pulmonary disease) Status: Chronic (11) Diabetes Status: Chronic Problem Text: diet controlled (12) HTN (hypertension) Status: Chronic Problem Text: hypotensive on admission continues to have soft bps. will hold coreg and entresto. (13) Dyslipidemia Status: Chronic Plan/VTE VTE Prophylaxis Ordered?: Yes VS, I&O, 24H, Fishbone Vital Signs/I&O Vital Signs Date Time Temp Pulse Resp B/P (MAP) Pulse Ox O2 Delivery O2 Flow Rate FiO2 05/28/17 06:00 98.2 71 16 105/59 (74) 93 Room Air 05/25/17 04:15 0.5 I&O- Last 24 Hours up to 6 AM 05/28/17 06:00 Intake Total 1350 ml Output Total 2325 ml Balance -975 ml Laboratory Data 24H LABS Laboratory Tests 2 05/28/17 04:49: 05/28/17 04:52: White Blood Count 11.6H, Red Blood Count 4.51, Hemoglobin 9.5L, Hematocrit 32.1L , Mean Corpuscular Volume 71.2L, Mean Corpuscular Hemoglobin 21.1L, Mean Corpuscular Hemoglobin Concent 29.6L, Red Cell Distribution Width 19.8H, Platelet Count 193, Neutrophils (%) (Auto) 73.9H, Lymphocytes (%) (Auto) 13.6L, Monocytes (%) (Auto) 6.1H, Eosinophils (%) (Auto) 2.0, Basophils (%) (Auto) 0.7 , Neutrophils # (Auto) 8.5H, Lymphocytes # (Auto) 2.0, Monocytes # (Auto) 0.7, Eosinophils # (Auto) 0.2, Basophils # (Auto) 0.1, Large Unclassified Cells % 3.7 , Large Unclassified Cells # 0.4, Platelet Estimate NORMAL, Hypochromasia 3+, Anisocytosis 2+, Microcytosis 2+, Prothrombin Time 33.3H, Prothromb Time International Ratio 3.09, Anion Gap 12, Glomerular Filtration Rate 29.3L, Blood Urea Nitrogen 60H, Creatinine 2.27H, Sodium Level 144, Potassium Level 3.5, Chloride Level 107, Carbon Dioxide Level 25, Calcium Level 8.6L, Aspartate Amino Transf (AST/SGOT) 38H, Alanine Aminotransferase (ALT/SGPT) 148H, Alkaline Phosphatase 63, Total Bilirubin 1.3H, Total Protein 6.4, Albumin 3.2, Albumin/ Globulin Ratio 1.00 CBC/BMP Laboratory Tests 05/28/17 04:52 Red Blood Count 4.51, Mean Corpuscular Volume 71.2 L, Mean Corpuscular Hemoglobin 21.1 L, Mean Corpuscular Hemoglobin Concent 29.6 L, Red Cell Distribution Width 19.8 H, Neutrophils (%) (Auto) 73.9 H, Lymphocytes (%) (Auto ) 13.6 L, Monocytes (%) (Auto) 6.1 H, Eosinophils (%) (Auto) 2.0, Basophils (%) (Auto) 0.7, Neutrophils # (Auto) 8.5 H, Lymphocytes # (Auto) 2.0, Monocytes # ( Auto) 0.7, Eosinophils # (Auto) 0.2, Basophils # (Auto) 0.1, Calcium Level 8.6 L , Aspartate Amino Transf (AST/SGOT) 38 H, Alanine Aminotransferase (ALT/SGPT) 148 H, Alkaline Phosphatase 63, Total Bilirubin 1.3 H, Total Protein 6.4, Albumin 3.2 Microbiology Microbiology 05/24/17 Blood Culture - Preliminary, Resulted No Growth after 72 hours. All specime... 05/24/17 Blood Culture - Preliminary, Resulted No Growth after 72 hours. All specime... CECILIA GILL MD May 28, 2017 09:49
[2017-05-28 14:00] VITALS: BP 102/67
[2017-05-28] MEDS: WARFARIN SOD 3 MG TAB PO SCH (17:38)
--- NOTE | 2017-05-28 18:23 | IPN ---
DATE: 05/28/2017 Mr. Wolff is seen this morning on his bedside. He is lying flat in his bed and denies any dyspnea or chest pain. He has no nausea, vomiting, diarrhea or abdominal pain. PHYSICAL EXAMINATION: Temperature 98.2 degrees Fahrenheit, heart rate 70 per minute and respiratory rate 16 per minute. Blood pressure 105/59 mmHg and oxygen saturation 97% on room air. Intake and output records from yesterday showed total output 2625 mL, while intake was only 1230. His head is atraumatic. Neck is supple and JVD is only mildly elevated. There is no oral thrush or ulcers. Ears, nose and throat are unremarkable. Heart sounds are regular with systolic murmur grade 2/6 and his prosthetic mechanical valve sound is unchanged. Lungs sound much clearer today without any wheezing or rales. Abdomen is soft and nontender. Extremities have no cyanosis or clubbing. Neurologically he is at his baseline mentation and without a focal deficit. Today's labs show WBC count 11.6, hemoglobin 9.5 and hematocrit 32.1. Platelets 193. Sodium 144 and potassium 3.5. BUN 60 and creatinine 2.27. Calcium level is 8.6. A BNP level has just come back at 2540. PROBLEMS: 1. Acute on chronic congestive heart failure. The patient has diuresed very well with intravenous Lasix. He will be at risk for over diuresis and acute renal failure. I suspect that he has chronically elevated BNP level. I would stop his IV diuretic and put him on oral Lasix 80 mg daily. 2. Acute renal failure superimposed on chronic kidney disease. Slight improvement is noted over the last 24 hours. The patient has no uremic symptoms. 3. Hypokalemia. This is related to aggressive diuresis. The patient is going to receive oral potassium supplement 40 mEq daily. Electrolytes will be checked again tomorrow morning. 4. Disposition. From a renal standpoint, the patient is likely to be ready for discharge in the next 24 hours. Physical therapy evaluation is pending.
[2017-05-28 22:00] VITALS: BP 104/54
[2017-05-29 06:00] VITALS: BP 109/63
[2017-05-29 06:09] LABS: BASO # 0.1 K/mm3 (0.0-0.2); BASO % 0.7 % (0.0-1.0); EOS # 0.5 K/mm3 (0.0-0.50); EOS % 5.7 % (0.0-3.0); LARGE UNSTAINED CELL # 0.4 K/mm3 (0.0-0.4); LARGE UNSTAINED CELL % 3.9 % (0.0-4.0); LYMPH # 2.1 K/mm3 (1.5-4.5); LYMPH % 19.2 % (24.0-44.0); MEAN CORPUSCULAR HEMOGLOBIN 20.9 pg (27.0-33.0); MEAN CORPUSCULAR HGB CONC 29.2 g/dl (32.0-36.5); MEAN CORPUSCULAR VOLUME 71.8 fl (80.0-96.0); MONO # 0.5 K/mm3 (0.0-0.8); MONO % 5.5 % (0.0-5.0); NEUTROPHILS # 5.8 K/mm3 (1.8-7.7); NEUTROPHILS % 64.9 % (36.0-66.0); PLATELET COUNT, AUTOMATED 187 k/mm3 (150-450); WHITE BLOOD COUNT 8.9 K/mm3 (4.0-10.0)
[2017-05-29 06:14] LABS: INR 3.04
[2017-05-29 06:28] LABS: ALBUMIN/GLOBULIN RATIO 0.91 (1.00-1.93); BILIRUBIN,TOTAL 0.9 MG/DL (0.2-1.0); CALCIUM LEVEL 8.5 MG/DL (8.8-10.2); CREATININE FOR GFR 1.96 MG/DL (0.70-1.30); GLOMERULAR FILTRATION RATE 34.7 (>35); POTASSIUM SERUM 3.8 MEQ/L (3.5-5.1); TOTAL PROTEIN 6.3 GM/DL (6.4-8.2)
[2017-05-29] MEDS ORDERED: FUROSEMIDE 80 MG TAB PO SCH (09:00)
[2017-05-29] MEDS: ASPIRIN 81 MG ENTERIC TAB PO SCH (09:42)
[2017-05-29] MEDS: POTASSIUM CHLORIDE 10 MEQ SR TABLET PO SCH (09:42)
[2017-05-29] MEDS ORDERED: POTA10CA PO (13:01)
[2017-05-29] MEDS ORDERED: FURO80TA2 PO (13:01)
--- NOTE | 2017-05-29 22:05 | IPN ---
DATE: 05/29/2017 Mr. Wolff is seen this morning on his bedside. He is feeling well and denies any complaints. He wants to go home. There is no dyspnea, chest pain, nausea or vomiting. Nursing staff reports that the patient has been cleared by physical therapy. PHYSICAL EXAMINATION: Temperature 97 degrees Fahrenheit, heart rate 70 per minute and respiratory rate 16 per minute. Blood pressure 109/63 mmHg and oxygen saturation 99% on room air. Intake and output records from yesterday showed total intake 1320 and output 2225 mL. His head is atraumatic. Neck veins are still moderately distended. He is edentulous and without any oral thrush or ulcers. Pupils equal and reactive to light and sclera is anicteric. Heart: Sounds are regular with prosthetic valve sounds. There is no pericardial friction rub. Lungs: Sound clear to auscultation bilaterally. Abdomen: Soft and nontender and without a palpable organomegaly. Bowel sounds are normal. Extremities have no cyanosis or clubbing. There is no peripheral edema. Neurologically he seems to be awake, alert and oriented times three. Today's labs show WBC count 8.9, hemoglobin 9.4 and hematocrit 32.2. Sodium 145, potassium 3.8. BUN is 58 and creatinine 1.96. Calcium level 8.5 and bilirubin is now 0.9. PROBLEMS: 1. Acute renal failure superimposed on chronic kidney disease. Kidney function has improved further. At present, he has no uremic symptoms and electrolytes are within normal range. 2. Acute on chronic systolic congestive heart failure. Volume status has improved significantly and the patient is completely asymptomatic. We started 80 mg Lasix by mouth every day and will continue with the same. His Entresto has been on hold and will continue to hold it until his kidney function levels off. 3. Anemia. At present his anemia is stable and we will continue to monitor without intervention. This can be monitored as an outpatient. DISPOSITION: From a renal standpoint, the patient can be discharged to home on current medications. He will followup in my office in 1 weeks' time.
--- NOTE | 2017-05-30 16:24 | DS.PDOC ---
Discharge Summary General Date of Admission May 24, 2017 at 12:36 Date of Discharge 05/29/2017 Discharge Summary DISCHARGE SUMMARY DATE OF ADMISSION: 05/24/2017 DATE OF DISCHARGE: 05/29/2017 PRIMARY CARE PHYSICIAN: Dr. 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 In the emergency department , he was found to be in ventricular tachycardia to the 140s. Unfortunately, this is below the threshold for the firings set on his AICD, so in the emergency department, Dr. Noriega performed internal cardioversion with termination of the V. tach. When the patient arrived, his blood pressure was quite low, and this continued to improve after stabilization of his cardiac rhythm. At the time of discharge, his blood pressure was still a little bit on the soft side, and he had not been receiving his home Coreg, and he was instructed to hold off on resuming this until he had had a follow-up with Dr. García, who could instruct him on whether or not he could resume it. His symptoms also resolved. He was found to have a creatinine up to 5.07, as well as elevated LFTs, all of which are thought to be secondary to poor perfusion while he was in ventricular tachycardia. At the time of discharge, his LFTs had improved to normal, and his creatinine had trended down to 1.96. He appears to have a baseline creatinine in the mid to upper ones. We have been holding the patient's Entresto, and he should continue to hold off on resuming this until his kidney function is reevaluated by Dr. Kelsey. Additionally, his INR upon presentation was elevated to 5.64. His Coumadin was held until it fell back into his goal range of 2.5-3.5. By the time the patient was discharged, his Coumadin had been resumed, and his INR was 3.04. He will need to get his INR checked with his PCP within the next week. Also, upon admission, the patient's digoxin level was found to be elevated at 3.0. I suspect that this is secondary to his transiently depressed kidney function. Digoxin was held until the day of discharge, at which time, his digoxin was in a normal range. He was instructed to resume his digoxin and will need to get it checked with Dr. García at his follow-up appointment. Finally, secondary to the V. tach, the patient experienced acute on chronic systolic CHF, and required diuresis. On the day of discharge, Dr. Kelsey recommended that he be discharged home on Lasix 80 mg by mouth daily. PHYSICAL EXAMINATION ON DISCHARGE: VITAL SIGNS: Vital Signs Date Time Temp Pulse Resp B/P (MAP) Pulse Ox O2 Delivery O2 Flow Rate FiO2 05/29/17 11:08 Room Air 05/29/17 06:00 97.1 69 16 109/63 (78) 99 05/25/17 04:15 0.5 GENERAL: awake, alert, no acute distress CARDIOVASCULAR EXAMINATION: Regular rate and rhythm RESPIRATORY EXAMINATION: Clear to auscultation bilaterally with no wheezes, rales, or rhonchi. ABDOMINAL EXAMINATION: Soft, nontender, nondistended. Bowel sounds present. EXTREMITIES: No clubbing or edema noted. 2+ pulses in the radial bilaterally. NEURO: AAOx3, normal speech PSYCH: normal mood and affect DISPOSITION: Home DISCHARGE INSTRUCTIONS: Follow-up with PCP Dr. Packer within 1 week, needs INR check Follow-up with Dr. Kelsey within 1 week, needs BMP check Follow-up with Dr. García within 1 week, needs digoxin level checked If symptoms return, or if you experience worsening of your symptoms, please call your doctor or return to the emergency department. ITEMS THAT NEED OUTPATIENT FOLLOWUP: INR level, BMP check and whether or not he can resume his Entresto, blood pressure check and whether or not he can resume his Coreg, digoxin level checked Patient was seen and examined by me on the day of discharge, and I spent a total time of greater than 30 minutes on this discharge. Vital Signs/I&Os Vital Signs Date Time Temp Pulse Resp B/P (MAP) Pulse Ox O2 Delivery O2 Flow Rate FiO2 05/29/17 11:08 Room Air 05/29/17 06:00 97.1 69 16 109/63 (78) 99 05/25/17 04:15 0.5 I&O- Last 24 Hours up to 6 AM 05/30/17 06:00 Intake Total 360 ml Output Total 400 ml Balance -40 ml Microbiology Microbiology 05/24/17 Blood Culture - Final, Complete NO GROWTH AFTER 5 DAYS 05/24/17 Blood Culture - Final, Complete NO GROWTH AFTER 5 DAYS Discharge Medications Scheduled (Gas-X Extra Strength) 125 Mg Cap, 125 MG PO DAILY, (Reported) Aspirin (Aspirin 81) 81 Mg Tab, 81 MG PO DAILY, (Reported) Digoxin (Digoxin) 0.125 Mg Tab, 0.125 MG PO DAILY, (Reported) Furosemide (Furosemide) 80 Mg Tab, 80 MG PO DAILY Linagliptin Base (Tradjenta) 5 Mg Tab, 5 MG PO QHS, (Reported) Potassium Chloride (Klor-Con M10) 10 Meq Tabcr, 40 MEQ PO DAILY Simvastatin (Simvastatin) 20 Mg Tab, 20 MG PO QHS, (Reported) Vitamin D (Drisdol) 50,000 Unit Cap, 50,000 UNIT PO Q2WK, (Reported) EVERY OTHER SUNDAY Warfarin Sod (Warfarin Sodium) 1 Mg Tab, 1.5 MG PO QPM, (Reported) WAS DUE FOR BLOOD WORK 05/24/17 Scheduled PRN Albuterol Sulfate (Albuterol Sulfate) 2.5 Mg/3 Ml Nebu, 2.5 MG INH Q4H PRN for SHORTNESS OF BREATH, (Reported) Nitroglycerin (Nitrostat) 0.4 Mg Subl, 0.4 MG SL Q5MP PRN for CHEST PAIN, ( Reported) Allergies Coded Allergies: No Known Allergies (Unverified , 06/16/13) RAVINDRA LAYNE May 30, 2017 16:24
== END 2017-05-29 14:24 | disposition home or self-care (01) | DRG 682 ==
LOC: M ED 08:19 → M ED INP 12:36 → M PCU 13:27 → M MSPAV 05-27 19:02
PROVIDERS: ADMIT Internal Medicine Nephrology; ATTEND Hospitalist
DX: N17.9 Acute kidney failure, unspecified (principal); R57.0 Cardiogenic shock; I50.43 Acute on chronic combined systolic (congestive) and diastolic (congestive) heart failure; I47.2 Ventricular tachycardia; E87.2 Acidosis; I13.0 Hypertensive heart and chronic kidney disease with heart failure and stage 1 through stage 4 chronic kidney disease, or unspecified chronic kidney disease; K57.30 Diverticulosis of large intestine without perforation or abscess without bleeding; I25.10 Atherosclerotic heart disease of native coronary artery without angina pectoris; I25.2 Old myocardial infarction; I25.5 Ischemic cardiomyopathy; I48.2 Chronic atrial fibrillation; I95.9 Hypotension, unspecified; E87.5 Hyperkalemia; E78.5 Hyperlipidemia, unspecified; E11.9 Type 2 diabetes mellitus without complications; J44.9 Chronic obstructive pulmonary disease, unspecified; N18.3 Chronic kidney disease, stage 3 (moderate); R19.7 Diarrhea, unspecified; K22.2 Esophageal obstruction; R74.0 Nonspecific elevation of levels of transaminase and lactic acid dehydrogenase [LDH]; D64.9 Anemia, unspecified; R29.6 Repeated falls; R26.81 Unsteadiness on feet; Z45.02 Encounter for adjustment and management of automatic implantable cardiac defibrillator; Z95.1 Presence of aortocoronary bypass graft; Z95.2 Presence of prosthetic heart valve; Z79.01 Long term (current) use of anticoagulants; Z87.891 Personal history of nicotine dependence; Z79.82 Long term (current) use of aspirin; Z79.899 Other long term (current) drug therapy